=== PATIENT | male | born 1955 | race Caucasian/White ===

== ENCOUNTER 2018-02-26 22:31 | Emergency (ER) | payer BC ==
--- NOTE | 2018-02-26 23:38 | ER ---
Nurse's Notes [facility] Name: Lam Schroeder Age: 62 yrs Sex: Male : 1955 Arrival Date: 02/26/2018 Time: 22:35 Bed 6 Private MD: Robert Luo Diagnosis: Essential (primary) hypertension Presentation: 02/26 22:52 Presenting complaint: Patient states: Blood pressure 206/128 at home, states BP has lp1 been increasing all week; Denies any pain, discomfort, shortness of breath; Appt with Dr. 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 Transition of care: patient was not received from another setting of care. Onset of symptoms was February 26, 2018. Risk Assessment: Do you want to hurt yourself or someone else? Patient reports no desire to harm self or others. Initial Sepsis Screen: Does the patient meet any 2 criteria? No. Patient's initial sepsis screen is negative. Does the patient have a suspected source of infection? No. Patient's initial sepsis screen is negative. Care prior to arrival: None. 22:52 Method Of Arrival: Ambulatory lp1 22:52 Acuity: ANI 3 lp1 Historical: - Allergies: 22:54 Ephedrine Analogues; lp1 - Home Meds: 22:54 metoprolol succinate 100 mg oral Tb24 1 tab once daily [Active]; lp1 - PMHx: 22:54 Hypertension; lp1 - PSHx: 22:54 None; lp1 - Immunization history:: Adult Immunizations up to date. - Social history:: Smoking status: Patient uses tobacco products, smokes one pack cigarettes per day. - Ebola Screening: : No symptoms or risks identified at this time. Screenin:49 Abuse screen: Denies threats or abuse. Denies injuries from another. Nutritional tl1 screening: No deficits noted. Tuberculosis screening: No symptoms or risk factors identified. Fall Risk None identified. Assessment: 23:48 General: Appears in no apparent distress. Behavior is calm, cooperative, appropriate tl1 for age. Pain: Denies pain. Neuro: Level of Consciousness is awake, alert, obeys commands, Oriented to person, place, time, situation. Cardiovascular: Reports High blood pressure for approx 1 week Denies chest pain. Respiratory: Airway is patent Trachea midline Respiratory effort is even, unlabored, Breath sounds are clear bilaterally. GI: No signs and/or symptoms were reported involving the gastrointestinal system. : No signs and/or symptoms were reported regarding the genitourinary system. EENT: No signs and/or symptoms were reported regarding the EENT system. Derm: No signs and/or symptoms reported regarding the dermatologic system. Vital Signs: 22:50 BP 206 / 123; Pulse 79; Resp 20; Temp 98.7(O); Pulse Ox 98% on R/A; Weight 88.45 kg; lp1 Height 5 ft. 6 in. (167.64 cm); Pain 0/10; 22:56 BP 172 / 106; Pulse 79; Resp 20; Pulse Ox 97% on R/A; lp1 23:51 BP 156 / 88; Pulse 75; Resp 16; Temp 98.7; Pulse Ox 99% on R/A; Pain 0/10; tl1 22:50 Body Mass Index 31.47 (88.45 kg, 167.64 cm) lp1 ED Course: 22:35 Patient arrived in ED. es 22:35 Robert Luo MD is Private Physician. es 22:40 Chema Yanez MD is Attending Physician. gs 22:53 Triage completed. lp1 22:56 Arm band placed on left wrist. lp1 22:56 Patient has correct armband on for positive identification. Call light in reach. Side tl1 rails up X 1. Adult w/ patient. 23:50 No provider procedures requiring assistance completed. Patient did not have IV access tl1 during this emergency room visit. 23:51 Kirsten Tabares, KRISTA is Primary Nurse. tl1 Administered Medications: No medications were administered Outcome: 23:37 Discharge ordered by . gs 23:51 Discharged to home ambulatory, with family. tl1 23:51 Condition: good 23:51 Discharge instructions given to patient, family, Instructed on discharge instructions, follow up and referral plans. Demonstrated understanding of instructions, follow-up care. 23:55 Patient left the ED. tl1 Signatures: Katya Barr Laura, RN RN lp1 Kirsten Tabares, KRISTA VELASCO tl1 Chema Yanez MD MD
--- NOTE | 2018-02-26 23:38 | EDPHYS ---
Physician Documentation [facility] Name: Lam Schroeder Age: 62 yrs Sex: Male : 1955 Arrival Date: 02/26/2018 Time: 22:35 Bed 6 Private MD: Robert Luo ED Physician Chema Yanez HPI: 02/26 23:55 This 62 yrs old Male presents to ER via Ambulatory with complaints of High gs Blood Pressure. 23:55 Onset: The symptoms/episode began/occurred 1 week(s) ago. Modifying factors: The gs symptoms are aggravated by activity. Associated signs and symptoms: Pertinent negatives: chest pain, dyspnea, headache, visual changes. Severity of symptoms: At its worst the blood pressure was severe, in the emergency department the blood pressure is improved, moderately. The patient has experienced similar episodes in the past, a few times. The patient has been recently seen by a physician: Dr. cortez. Historical: - Allergies: 22:54 Ephedrine Analogues; lp1 - Home Meds: 22:54 metoprolol succinate 100 mg oral Tb24 1 tab once daily [Active]; lp1 - PMHx: 22:54 Hypertension; lp1 - PSHx: 22:54 None; lp1 - Immunization history:: Adult Immunizations up to date. - Social history:: Smoking status: Patient uses tobacco products, smokes one pack cigarettes per day. - Ebola Screening: : No symptoms or risks identified at this time. ROS: 23:55 All other systems are negative. gs Exam: 23:55 Head/Face: Normocephalic, atraumatic. Eyes: Pupils equal round and reactive to light, gs extra-ocular motions intact. Lids and lashes normal. Conjunctiva and sclera are non-icteric and not injected. Cornea within normal limits. Periorbital areas with no swelling, redness, or edema. ENT: Nares patent. No nasal discharge, no septal abnormalities noted. Tympanic membranes are normal and external auditory canals are clear. Oropharynx with no redness, swelling, or masses, exudates, or evidence of obstruction, uvula midline. Mucous membranes moist. Neck: Trachea midline, no thyromegaly or masses palpated, and no cervical lymphadenopathy. Supple, full range of motion without nuchal rigidity, or vertebral point tenderness. No Meningismus. Chest/axilla: Normal chest wall appearance and motion. Nontender with no deformity. No lesions are appreciated. Cardiovascular: Regular rate and rhythm with a normal S1 and S2. No gallops, murmurs, or rubs. Normal PMI, no JVD. No pulse deficits. Respiratory: Lungs have equal breath sounds bilaterally, clear to auscultation and percussion. No rales, rhonchi or wheezes noted. No increased work of breathing, no retractions or nasal flaring. Abdomen/GI: Soft, non-tender, with normal bowel sounds. No distension or tympany. No guarding or rebound. No evidence of tenderness throughout. Back: No spinal tenderness. No costovertebral tenderness. Full range of motion. Skin: Warm, dry with normal turgor. Normal color with no rashes, no lesions, and no evidence of cellulitis. MS/ Extremity: Pulses equal, no cyanosis. Neurovascular intact. Full, normal range of motion. Neuro: Awake and alert, GCS 15, oriented to person, place, time, and situation. Cranial nerves II-XII grossly intact. Motor strength 5/5 in all extremities. Sensory grossly intact. Cerebellar exam normal. Normal gait. 23:55 Constitutional: The patient appears alert, awake. Vital Signs: 22:50 BP 206 / 123; Pulse 79; Resp 20; Temp 98.7(O); Pulse Ox 98% on R/A; Weight 88.45 kg; lp1 Height 5 ft. 6 in. (167.64 cm); Pain 0/10; 22:56 BP 172 / 106; Pulse 79; Resp 20; Pulse Ox 97% on R/A; lp1 23:51 BP 156 / 88; Pulse 75; Resp 16; Temp 98.7; Pulse Ox 99% on R/A; Pain 0/10; tl1 22:50 Body Mass Index 31.47 (88.45 kg, 167.64 cm) lp1 MDM: 23:07 Patient medically screened. 23:55 Differential diagnosis: hypertensive crisis, Malignant HTN. Data reviewed: vital signs, gs nurses notes. Counseling: I had a detailed discussion with the patient and/or guardian regarding: the historical points, exam findings, and any diagnostic results supporting the discharge/admit diagnosis, the need for outpatient follow up. Response to treatment: the patient's symptoms have markedly improved after treatment, and as a result, I will discharge patient. 02/26 23:50 Order name: EKG; Complete Time: 23:51 tl1 02/26 23:50 Order name: EKG - Nurse/Tech; Complete Time: 23:50 tl1 Administered Medications: No medications were administered Disposition: 02/26/18 23:37 Discharged to Home. Impression: Essential (primary) hypertension. - Condition is Stable. - Discharge Instructions: Hypertension, Managing Your Hypertension. - Work release form, Medication Reconciliation Form, Thank You Letter, Antibiotic Education, Prescription Opioid Use form. - Follow up: Private Physician; When: 2 - 3 days; Reason: Re-evaluation by your physician. Signatures: Estrella Nino RN RN lp1 Kirsten Tabares RN RN tl1 Chema Yanez MD MD gs Corrections: (The following items were deleted from the chart) 23:55 23:37 02/26/2018 23:37 Discharged to Home. Impression: Essential (primary) tl1 hypertension. Condition is Stable. Forms are Medication Reconciliation Form, Thank You Letter, Antibiotic Education, Prescription Opioid Use. Follow up: Private Physician; When: 2 - 3 days; Reason: Re-evaluation by your physician. gs
[2018-02-27 04:29] VITALS: TEMP 98.7
[2018-02-27 04:32] VITALS: BP 156/88; O2SAT 99
--- NOTE | 2018-02-27 12:11 | EKG ---
Test Date: 2018-02-26 Test Time: 22:58:14 Adjunct Instructor: PHYLICIA MEASUREMENT RESULTS: Intervals: Rate: 76 [place]: 146 QRSD: 74 QT: 370 QTc: 416 [place]: P: 51 [place]: 146 QRS: 22 T: 28 INTERPRETIVE STATEMENTS: Normal sinus rhythm Normal ECG Compared to ECG 01/29/2016 06:38:01 Sinus bradycardia no longer present Electronically Signed On 02-27-18 12:09:09 DIRECTOR OF STRATEGIC ALLIANCES by Levi Cervantes
== END 2018-02-26 23:55 | disposition home or self-care (01) ==
LOC: ER 22:31
DX: I10 Essential (primary) hypertension (principal); F17.210 Nicotine dependence, cigarettes, uncomplicated; Z79.899 Other long term (current) drug therapy
CPT/HCPCS: 93005; 99281

== ENCOUNTER 2022-04-14 15:30 | Inpatient (IN) | payer BC, OTHER ==
--- NOTE | 2022-04-14 16:11 | RAD REPORT ---
EXAM DESCRIPTION: CT - Ct Stroke Brain Wo Cont - 04/14/2022 3:58 pm CLINICAL HISTORY: Neuro deficit, acute, stroke suspected COMPARISON: Head Brain Wo Cont dated 01/28/2016 TECHNIQUE: All CT scans are performed using dose optimization technique as appropriate and may inclu de automated exposure control or mA/KV adjustment according to patient size. FINDINGS: No intracranial hemorrhage, hydrocephalus or extra-axial fluid collection.No areas of brai n edema or evidence of midline shift. Chronic small vessel ischemic changes The paranasal sinuses and mastoids are clear. The calvarium is intact. IMPRESSION: No acute intracranial abnormality. Discussed with Dr. Eubanks by Dr. Velazquez at [id number]
[2022-04-14] MEDS ORDERED: NA CHLORIDE 0.9% 500 ML ONE (16:12)
[2022-04-14] MEDS ORDERED: LABETALOL 20 MG/4ML SYRINGE IV ONE ×4 (16:12→17:00)
[2022-04-14] MEDS ORDERED: LABETALOL HCL 100 MG TAB ONE (16:12)
[2022-04-14] MEDS ORDERED: FOLIC ACID 5 MG/ML VIAL ONE (16:13)
[2022-04-14 16:23] LABS: Absolute Lymphocytes (CBC) 2.1 K/uL (0.7-4.9); Hematocrit 43.8 % (39.6-49.0); MCV 85.6 fL (80-100); MPV 7.8 fL (7.6-11.3); RBC Red Blood Cell Count 5.12 M/uL (4.33-5.43)
--- NOTE | 2022-04-14 16:23 | RAD REPORT ---
EXAM DESCRIPTION: RAD - Chest Single View - 04/14/2022 4:09 pm CLINICAL HISTORY: COUGH COMPARISON: Chest Single View dated 01/28/2016; CHEST SINGLE VIEW dated 12/25/2012; CHEST PA AND LAT 2 VIEW dated 12/19/2012 FINDINGS: Lines: None. Lungs: No evidence of edema or pneumonia. Pleural: No significant pleural effusions or pneumothorax. Cardiac: The heart size is within normal limits. Mediastinum: Within normal limits. Bones: No acute fractures. Other: None IMPRESSION: No acute cardiopulmonary disease.
[2022-04-14 16:25] LABS: Protime INR 1.01
[2022-04-14] MEDS ORDERED: ACETAMINOPHEN 500 MG TAB ONE (16:28)
[2022-04-14] MEDS ORDERED: FENTANYL CITR 100 MCG/2 ML ONE ×2 (16:28→19:17)
[2022-04-14] MEDS ORDERED: ONDANSETRON 4 MG/2 ML VIAL ONE (16:28)
[2022-04-14 16:49] LABS: Albumin 3.8 g/dL (3.4-5.0); Bilirubin Direct 0.2 mg/dL (0-0.2); Bilirubin Total 0.7 mg/dL (0.2-1.0); Magnesium 2.1 mg/dL (1.6-2.4); Protein, Total 8.5 g/dL (6.4-8.2); Troponin High Sensitivity 26.4 pg/mL (<58.9)
[2022-04-14] MEDS ORDERED: FAMOTIDINE 20 MG/2 ML VIAL IV ONE ×2 (16:50→17:00)
[2022-04-14] MEDS ORDERED: ASPIRIN 81 MG CHEWABLE TABLET ONE (17:00)
--- NOTE | 2022-04-14 17:00 | EDPHYS ---
Physician Documentation [facility] Name: Lam Schroeder Age: 67 yrs Sex: Male : 1955 Arrival Date: 04/14/2022 Time: 15:34 Bed 4 Private MD: ED Physician Andrés Eubanks HPI: 04/14 16:39 This 67 yrs old Male presents to ER via Ambulatory with complaints of kristina Headache. 16:39 The patient complains of pain to the top of head, forehead, left frontal area, left kristina side of the back of head, left occipital area, left base of the skull, right frontal area, right side of the back of head, right occipital area and right base of the skull. The patient describes the headache as aching. Onset: The symptoms/episode began/occurred at 14:30. The patient presents with. Onset: The symptoms/episode began/occurred at 14:30. Possible causes: CVA or TIA, low blood sugar. Severity of symptoms: At its worst the pain was mild, moderate, in the emergency department the pain is unchanged. Associated signs and symptoms: Pertinent positives:. Historical: - Allergies: 15:40 Ephedrine Analogues; aa5 - PMHx: 15:40 Hypertension; aa5 - PSHx: 15:40 None; aa5 - Immunization history:: Adult Immunizations unknown. - Social history:: Smoking status: Patient reports the use of cigarette tobacco products, smokes one pack cigarettes per day. - Family history:: not pertinent. ROS: 16:41 Constitutional: Negative for fever, chills, and weight loss, Eyes: Negative for injury, kristina pain, redness, and discharge, ENT: Negative for injury, pain, and discharge, Neck: Negative for injury, pain, and swelling, Cardiovascular: Negative for chest pain, palpitations, and edema, Respiratory: Negative for shortness of breath, cough, wheezing, and pleuritic chest pain, Abdomen/GI: Negative for abdominal pain, nausea, vomiting, diarrhea, and constipation, Back: Negative for injury and pain, : Negative for injury, bleeding, discharge, and swelling, MS/Extremity: Negative for injury and deformity, Skin: Negative for injury, rash, and discoloration, Psych: Negative for depression, anxiety, suicide ideation, homicidal ideation, and hallucinations, Allergy/Immunology: Negative for hives, rash, and allergies, Endocrine: Negative for neck swelling, polydipsia, polyuria, polyphagia, and marked weight changes, Hematologic/Lymphatic: Negative for swollen nodes, abnormal bleeding, and unusual bruising. 16:41 Neuro: Positive for speech changes. Exam: 16:41 Radiologist reports: NEGATIVE kristina 16:41 Constitutional: This is a well developed, well nourished patient who is awake, alert, and in no acute distress. Head/Face: Normocephalic, atraumatic. Eyes: Pupils equal round and reactive to light, extra-ocular motions intact. Lids and lashes normal. Conjunctiva and sclera are non-icteric and not injected. Cornea within normal limits. Periorbital areas with no swelling, redness, or edema. ENT: Nares patent. No nasal discharge, no septal abnormalities noted. Tympanic membranes are normal and external auditory canals are clear. Oropharynx with no redness, swelling, or masses, exudates, or evidence of obstruction, uvula midline. Mucous membranes moist. Neck: Trachea midline, no thyromegaly or masses palpated, and no cervical lymphadenopathy. Supple, full range of motion without nuchal rigidity, or vertebral point tenderness. No Meningismus. Chest/axilla: Normal chest wall appearance and motion. Nontender with no deformity. No lesions are appreciated. Cardiovascular: Regular rate and rhythm with a normal S1 and S2. No gallops, murmurs, or rubs. Normal PMI, no JVD. No pulse deficits. Respiratory: Lungs have equal breath sounds bilaterally, clear to auscultation and percussion. No rales, rhonchi or wheezes noted. No increased work of breathing, no retractions or nasal flaring. Abdomen/GI: Soft, non-tender, with normal bowel sounds. No distension or tympany. No guarding or rebound. No evidence of tenderness throughout. Back: No spinal tenderness. No costovertebral tenderness. Full range of motion. Skin: Warm, dry with normal turgor. Normal color with no rashes, no lesions, and no evidence of cellulitis. MS/ Extremity: Pulses equal, no cyanosis. Neurovascular intact. Full, normal range of motion. Neuro: Awake and alert, GCS 15, oriented to person, place, time, and situation. Cranial nerves II-XII grossly intact. Motor strength 5/5 in all extremities. Sensory grossly intact. Cerebellar exam normal. Normal gait. Psych: Awake, alert, with orientation to person, place and time. Behavior, mood, and affect are within normal limits. 16:41 ECG was reviewed by the Attending Physician. Vital Signs: 15:40 BP 252 / 136; Pulse 82; Resp 18 S; Temp 98.2(TE); Pulse Ox 97% on R/A; Weight 68.04 kg aa5 (R); Height 5 ft. 6 in. (167.64 cm) (R); Pain 10/10; 16:14 BP 218 / 132; Pulse 84; Resp 21; Pulse Ox 99% on R/A; vg1 16:21 BP 209 / 133; Pulse 92; Resp 19; Pulse Ox 100% on R/A; vg1 16:36 BP 202 / 131; Pulse 96; Resp 22; Pulse Ox 100% on R/A; vg1 16:52 BP 210 / 132; Pulse 94; Resp 18; Pulse Ox 96% on R/A; vg1 17:00 BP 194 / 126; Pulse 94; Resp 16; Pulse Ox 97% on R/A; vg1 17:06 BP 182 / 123; Pulse 97; Resp 19; Pulse Ox 96% on R/A; vg1 17:08 BP 166 / 118; Pulse 94; Resp 19; Pulse Ox 97% on R/A; vg1 18:07 BP 153 / 117; Pulse 89; Pulse Ox 99% ; ap3 18:33 BP 150 / 116; Pulse 86; Pulse Ox 97% on R/A; ap3 19:18 BP 135 / 106; Pulse 80; Resp 18; Pulse Ox 98% on R/A; tw5 19:42 BP 133 / 96; Pulse 80; Resp 18; Pulse Ox 99% on R/A; tw5 15:40 Body Mass Index 24.21 (68.04 kg, 167.64 cm) aa5 NIH Stroke Scale Scores: 17:06 NIHSS Score: 0 kristina Bogata Coma Score: 16:48 Eye Response: spontaneous(4). Verbal Response: oriented(5). Motor Response: obeys [facility] commands(6). Total: 15. MDM: 15:49 Patient medically screened. [facility] 16:48 Data reviewed: vital signs, nurses notes, lab test result(s), EKG, radiologic studies, kristina CT scan, MRI, plain films. Consideration of Admission/Observation Patient was admitted/placed on observation. Escalation of care including admission/observation considered. Management of patient was discussed with the following: Lock Plater: DR MAYA, NO TPA, ADMIT CONT STROKE WORK UP. I considered the following discharge prescriptions or medication management in the emergency department Medications were administered in the Emergency Department. See MAR. Discussion of test interpretation with radiology: I had a discussion with radiology regarding a test interpretation. CT STROKE NEG, DR GEORGE. Historians other than the Patient: Family Member: SISTER. Care significantly affected by the following chronic conditions: Hypertension, TOBACCO ABUSE. 04/14 15:53 Order name: Basic Metabolic Panel; Complete Time: 17:49 [facility] 04/14 15:53 Order name: CBC with Diff; Complete Time: 17:49 [facility] 04/14 15:53 Order name: LFT's; Complete Time: 17:49 [facility] 04/14 15:53 Order name: Magnesium; Complete Time: 17:49 [facility] 04/14 15:53 Order name: NT PRO-BNP; Complete Time: 17:49 [facility] 04/14 15:53 Order name: PT-INR; Complete Time: 17:49 [facility] 04/14 15:53 Order name: Troponin HS; Complete Time: 17:49 [facility] 04/14 15:53 Order name: XRAY Chest (1 view); Complete Time: 17:49 [facility] 04/14 15:53 Order name: CT Stroke Brain w/o Contrast; Complete Time: 17:49 [facility] 04/14 16:32 Order name: SARS RAPID; Complete Time: 17:49 [facility] 04/14 16:57 Order name: CT Stone Protocol; Complete Time: 17:49 [facility] 04/14 17:31 Order name: Brain Wo Cont; Complete Time: 19:14 EDMS 04/14 15:53 Order name: EKG; Complete Time: 15:54 [facility] 04/14 15:53 Order name: Cardiac monitoring; Complete Time: 16:04 [facility] 04/14 15:53 Order name: EKG - Nurse/Tech; Complete Time: 16:04 [facility] 04/14 15:53 Order name: IV Saline Lock; Complete Time: 16:04 [facility] 04/14 15:53 Order name: Labs collected and sent; Complete Time: 16:04 [facility] 04/14 15:53 Order name: O2 Per Protocol; Complete Time: 16:04 [facility] 04/14 15:53 Order name: O2 Sat Monitoring; Complete Time: 16:04 [facility] EC:41 Rate is 90 beats/min. Rhythm is regular. QRS [place] is Normal. IN interval is normal. QRS kristina interval is normal. QT interval is normal. No Q waves. T waves are Normal. No ST changes noted. Clinical impression: NSR w/ Non-specific ST/T Changes and No evidence of ischemia. Interpreted by me. Reviewed by me. Administered Medications: 16:14 Drug: Labetalol 100 mg Route: PO; vg1 18:15 Follow up: Response: No adverse reaction; Blood pressure is lowered ap3 16:16 Drug: NS 0.9% 500 ml Route: IV; Rate: bolus; Site: right antecubital; vg1 18:15 Follow up: Response: No adverse reaction; IV Status: Completed infusion; IV Intake: ap3 500ml 16:16 Drug: foLIC Acid 1 mg Route: IVPB; Site: right antecubital; vg1 18:14 Follow up: Response: No adverse reaction; IV Status: Completed infusion ap3 16:18 Drug: Labetalol 10 mg Route: IV; Rate: per protocol; Infused Over: 2 mins; Site: right vg1 antecubital; 18:14 Follow up: Response: No adverse reaction; Blood pressure is lowered; IV Status: ap3 Completed infusion 16:22 Drug: Labetalol 20 mg {Note: 10 mg administered at 1622 10 mg administered at 1627.} vg1 Route: IV; Rate: per protocol; Infused Over: 2 mins; Site: right antecubital; 18:14 Follow up: Response: No adverse reaction; Blood pressure is lowered; IV Status: ap3 Completed infusion 16:32 Drug: Zofran (Ondansetron) 4 mg Route: IVP; Site: right antecubital; vg1 18:14 Follow up: Response: No adverse reaction; Nausea is decreased ap3 16:37 Drug: Tylenol 1000 mg Route: PO; vg1 18:14 Follow up: Response: No adverse reaction; Pain is decreased ap3 16:49 Drug: fentaNYL (PF) 25 mcg Route: IVP; Site: right antecubital; vg1 17:00 Follow up: Response: No adverse reaction; Pain is decreased vg1 16:51 Drug: Pepcid (famotidine) 20 mg Route: IVP; Site: right antecubital; vg1 18:13 Follow up: Response: No adverse reaction ap3 16:55 Drug: Labetalol 40 mg Route: IV; Rate: per protocol; Infused Over: 2 mins; Site: right vg1 antecubital; 18:13 Follow up: Response: No adverse reaction; Blood pressure is lowered ap3 18:13 Follow up: IV Status: Completed infusion ap3 17:11 Drug: Aspirin Chewable Tablet 324 mg Route: PO; ap3 18:15 Follow up: Response: No adverse reaction ap3 18:13 Drug: Lipitor (atorvastatin) 20 mg Route: PO; ap3 18:33 Follow up: Response: No adverse reaction ap3 18:13 Drug: Nicoderm CQ Patch 21 mg/24 hr 1 patches Route: Transdermal; Site: affected area; ap3 18:13 Drug: Losartan 100 mg Route: PO; ap3 18:33 Follow up: Response: No adverse reaction ap3 19:58 Not Given (Patient Refused): fentaNYL (PF) 25 mcg IVP once mb9 Disposition Summary: 04/14/22 17:00 Hospitalization Ordered Hospitalization Status: Inpatient Admission kristina Location: Telemetry/MedSurg (Inpatient) kristina Condition: Fair kristina Problem: new kristina Symptoms: have improved kristina Bed/Room Type: Standard kristina Provider: Robyn Cross(04/14/22 17:01) kristina Room Assignment: [facility](04/14/22 20:02) mw Diagnosis - Aphasia - RESOLVED kristina - Hypertensive heart and chronic kidney disease with heart failure and stage 1 kristina through stage 4 chronic kidney disease, or unspecified chronic kidney disease - Tobacco abuse counseling kristina - Tobacco use kristina - Headache kristina - Unspecified kidney failure kristina Forms: - Medication Reconciliation Form kristina - SBAR form kristina Critical care time excluding procedures: 17:24 Critical care time: Bedside Care: 25 minutes, Consultation: 10 minutes, Family kristina Intervention: 10 minutes. Total time: 45 minutes NIH Stroke Scale - NIH Stroke Score Date: 04/14/2022 Time: 17:06 Total Score = 0 1a. Level of Consciousness (LOC) - 0(Alert) 1b. Level of Consciousness (LOC) (Month \T\ Age) - 0(Both) 1c. LOC Commands (Open \T\ Closes Eyes/Aerial Sprayer) - 0(Both) 2. Best Gaze (Lateral Gaze Paresis) - 0(Normal) 3. Visual Field Loss - 0(No visual loss) 4. Facial Palsy - 0(Normal) 5a. Left Arm: Motor (10-second hold) - 0(No drift) 5b. Right Arm: Motor (10-second hold) - 0(No drift) 6a. Left Leg: Motor (5-second hold - always test supine) - 0(No drift) 6b. Right Leg: Motor (5-second hold - always test supine) - 0(No drift) 7. Limb Ataxia (finger/nose \T\ heel/yusuf - test with eyes open) - 0(Absent) 8. Sensory Loss (pinprick arms/legs/face) - 0(Normal) 9. Best Language: Aphasia (description/naming/reading) - 0(No aphasia) 10. Dysarthria (speech clarity - read or repeat words) - 0(Normal) 11. Extinction and Inattention (visual/tactile/auditory/spatial/personal) - 0(No abnormality) Initials: kristina Signatures: Dispatcher [employer] EDMS Caty Farrell RN Andrés Dowell MD MD cha Calderon, Audri, RN RN aa5 Neida Solorio RN RN ap3 Susan Baldwin, RN RN vg1 Manasa Henry PA-C PAGilma no4 Alicia Bruno RN mb9 Corrections: (The following items were deleted from the chart) 17:01 15:54 Head Angio+CT.RAD.BRZ ordered. EDMS EDMS 17:01 15:54 Neck Angio+CT.RAD.BRZ ordered. EDMS EDMS 17:01 17:00 Baljeet Heath cha, cha 17:31 16:32 MR STROKE PROTOCOL+MRI.RAD.BRZ ordered. EDMS EDMS 20:02 17:00 kristina byrne
--- NOTE | 2022-04-14 17:00 | ER ---
[facility] Name: Lam Schroeder Age: 67 yrs Sex: Male : 1955 Arrival Date: 04/14/2022 Time: 15:34 Bed 4 Private MD: Diagnosis: Aphasia-RESOLVED;Hypertensive heart and chronic kidney disease with heart failure and stage 1 through stage 4 chronic kidney disease, or unspecified chronic kidney disease;Tobacco abuse counseling;Tobacco use;Headache;Unspecified kidney failure Presentation: 04/14 15:40 Chief complaint: Patient states: "I was at work and I couldn't get my words to come out aa5 right and my co-worker said that I wasn't making any sense". Pt is A\\T\\O x 4, reports RODRIGES to whole head. Symptoms began at 1330 today. 15:40 Coronavirus screen: At this time, the client does not indicate any symptoms associated aa5 with coronavirus-19. Ebola Screen: Patient denies travel to an Ebola-affected area in the 21 days before illness onset. Initial Sepsis Screen: Does the patient meet any 2 criteria? No. Patient's initial sepsis screen is negative. Does the patient have a suspected source of infection? No. Patient's initial sepsis screen is negative. Risk Assessment: Do you want to hurt yourself or someone else? Patient reports no desire to harm self or others. Onset of symptoms was April 14, 2022. 15:40 Acuity: ANI 2 aa5 15:40 Method Of Arrival: Ambulatory aa5 Triage Assessment: 16:40 Headache History: The patient has had previous headaches and this one is similar to ap3 previous episodes. General: Appears uncomfortable, Behavior is calm, cooperative. Pain: Complains of pain in head Pain currently is 10 out of 10 on a pain scale. Pain began gradually, Also complains of no other associated symptoms. Neuro: Level of Consciousness is awake, alert, obeys commands, Oriented to person, place, time, Speech is normal. Cardiovascular: Patient's skin is warm and dry. Cardiovascular:. Respiratory: Airway is patent Respiratory effort is even, unlabored. Historical: - Allergies: 15:40 Ephedrine Analogues; aa5 - PMHx: 15:40 Hypertension; aa5 - PSHx: 15:40 None; aa5 - Immunization history:: Adult Immunizations unknown. - Social history:: Smoking status: Patient reports the use of cigarette tobacco products, smokes one pack cigarettes per day. - Family history:: not pertinent. Screenin:06 Abuse screen: Denies threats or abuse. Nutritional screening: No deficits noted. ap3 Tuberculosis screening: No symptoms or risk factors identified. 17:25 [facility] ED Fall Risk Assessment (Adult) History of falling in the last 3 months, ap3 including since admission No falls in past 3 months (0 pts) Confusion or Disorientation No (0 pts) Intoxicated or Sedated No (0 pts) Impaired Gait No (0 pts) Mobility Assist Device Used No (0 pt) Altered Elimination No (0 pt). Assessment: 15:41 Reassessment: PT to CT via wheelchair, accompanied by me. . aa5 15:45 Reassessment: Pt back from CT scan, accompanied by me. . aa5 16:11 Reassessment: SWALLOW SCREEN COMPLETED-PASSED. vg1 17:12 Reassessment: pt TRANSPORTED to CT. vg1 18:15 Reassessment: Patient and/or family updated on plan of care and expected duration. Pain ap3 level reassessed. Patient is alert, oriented x 3, equal unlabored respirations, skin warm/dry/pink. Patient states symptoms have improved. 19:18 General: Appears in no apparent distress. Behavior is quiet, patient is sleeping at tw5 this time. 19:18 Respiratory: No deficits noted. tw5 19:42 General: Behavior is drowsy. tw5 19:43 General: Daughter at the bedside. Sirena the hospitalist also at the bedside speaking tw5 with the daughter regarding her fathers care.. Neuro: Level of Consciousness is awake, alert, obeys commands, Oriented to person, place, time, situation. Vital Signs: 15:40 BP 252 / 136; Pulse 82; Resp 18 S; Temp 98.2(TE); Pulse Ox 97% on R/A; Weight 68.04 kg aa5 (R); Height 5 ft. 6 in. (167.64 cm) (R); Pain 10/10; 16:14 BP 218 / 132; Pulse 84; Resp 21; Pulse Ox 99% on R/A; vg1 16:21 BP 209 / 133; Pulse 92; Resp 19; Pulse Ox 100% on R/A; vg1 16:36 BP 202 / 131; Pulse 96; Resp 22; Pulse Ox 100% on R/A; vg1 16:52 BP 210 / 132; Pulse 94; Resp 18; Pulse Ox 96% on R/A; vg1 17:00 BP 194 / 126; Pulse 94; Resp 16; Pulse Ox 97% on R/A; vg1 17:06 BP 182 / 123; Pulse 97; Resp 19; Pulse Ox 96% on R/A; vg1 17:08 BP 166 / 118; Pulse 94; Resp 19; Pulse Ox 97% on R/A; vg1 18:07 BP 153 / 117; Pulse 89; Pulse Ox 99% ; ap3 18:33 BP 150 / 116; Pulse 86; Pulse Ox 97% on R/A; ap3 19:18 BP 135 / 106; Pulse 80; Resp 18; Pulse Ox 98% on R/A; tw5 19:42 BP 133 / 96; Pulse 80; Resp 18; Pulse Ox 99% on R/A; tw5 15:40 Body Mass Index 24.21 (68.04 kg, 167.64 cm) aa5 Pinole Coma Score: 16:48 Eye Response: spontaneous(4). Verbal Response: oriented(5). Motor Response: obeys kristina commands(6). Total: 15. NIH Stroke Scale Scores: 17:06 NIHSS Score: 0 kristina ED Course: 15:34 Patient arrived in ED. am2 15:45 Arm band placed on Patient placed in an exam room, on a stretcher. aa5 15:48 Andrés Eubanks MD is Attending Physician. kristina 15:57 Triage completed. aa5 15:59 CT Stroke Brain w/o Contrast In Process Unspecified. EDMS 16:05 Neida Solorio, RN is Primary Nurse. ap3 16:05 Inserted saline lock: 20 gauge in right antecubital area, using aseptic technique. ap3 Blood collected. 16:05 Inserted saline lock: 20 gauge in left antecubital area, using aseptic technique. ap3 16:06 Patient has correct armband on for positive identification. Placed in gown. Bed in low ap3 position. Call light in reach. Side rails up X2. Adult w/ patient. dive superintendent on. Pulse ox on. NIBP on. 16:11 XRAY Chest (1 view) In Process Unspecified. EDMS 16:58 Baidoo, Baljeet is Hospitalizing Provider. kristina 17:01 Robyn Cross MD is Hospitalizing Provider. kristina 17:27 CT Stone Protocol In Process Unspecified. EDMS 18:21 Brain Wo Cont In Process Unspecified. EDMS 19:16 Primary Nurse role handed off by Neida Solorio RN tw5 19:16 Geni Jett is Primary Nurse. tw5 20:14 No provider procedures requiring assistance completed. Patient admitted, IV remains in tw5 place. Administered Medications: 16:14 Drug: Labetalol 100 mg Route: PO; vg1 18:15 Follow up: Response: No adverse reaction; Blood pressure is lowered ap3 16:16 Drug: NS 0.9% 500 ml Route: IV; Rate: bolus; Site: right antecubital; vg1 18:15 Follow up: Response: No adverse reaction; IV Status: Completed infusion; IV Intake: ap3 500ml 16:16 Drug: foLIC Acid 1 mg Route: IVPB; Site: right antecubital; vg1 18:14 Follow up: Response: No adverse reaction; IV Status: Completed infusion ap3 16:18 Drug: Labetalol 10 mg Route: IV; Rate: per protocol; Infused Over: 2 mins; Site: right vg1 antecubital; 18:14 Follow up: Response: No adverse reaction; Blood pressure is lowered; IV Status: ap3 Completed infusion 16:22 Drug: Labetalol 20 mg {Note: 10 mg administered at 1622 10 mg administered at 1627.} vg1 Route: IV; Rate: per protocol; Infused Over: 2 mins; Site: right antecubital; 18:14 Follow up: Response: No adverse reaction; Blood pressure is lowered; IV Status: ap3 Completed infusion 16:32 Drug: Zofran (Ondansetron) 4 mg Route: IVP; Site: right antecubital; vg1 18:14 Follow up: Response: No adverse reaction; Nausea is decreased ap3 16:37 Drug: Tylenol 1000 mg Route: PO; vg1 18:14 Follow up: Response: No adverse reaction; Pain is decreased ap3 16:49 Drug: fentaNYL (PF) 25 mcg Route: IVP; Site: right antecubital; vg1 17:00 Follow up: Response: No adverse reaction; Pain is decreased vg1 16:51 Drug: Pepcid (famotidine) 20 mg Route: IVP; Site: right antecubital; vg1 18:13 Follow up: Response: No adverse reaction ap3 16:55 Drug: Labetalol 40 mg Route: IV; Rate: per protocol; Infused Over: 2 mins; Site: right vg1 antecubital; 18:13 Follow up: Response: No adverse reaction; Blood pressure is lowered ap3 18:13 Follow up: IV Status: Completed infusion ap3 17:11 Drug: Aspirin Chewable Tablet 324 mg Route: PO; ap3 18:15 Follow up: Response: No adverse reaction ap3 18:13 Drug: Lipitor (atorvastatin) 20 mg Route: PO; ap3 18:33 Follow up: Response: No adverse reaction ap3 18:13 Drug: Nicoderm CQ Patch 21 mg/24 hr 1 patches Route: Transdermal; Site: affected area; ap3 18:13 Drug: Losartan 100 mg Route: PO; ap3 18:33 Follow up: Response: No adverse reaction ap3 19:58 Not Given (Patient Refused): fentaNYL (PF) 25 mcg IVP once mb9 Medication: 16:06 VIS not applicable for this client. ap3 Intake: 18:15 IV: 500ml; Total: 500ml. ap3 Outcome: 17:00 Decision to Hospitalize by Provider. kristina 20:14 Admitted to Med/surg Report called to Report called to 4th floor tw5 20:14 Condition: stable 20:14 Discharge instructions given to patient, family, Instructed on the need for admit, Demonstrated understanding of instructions. 20:56 Patient left the ED. kd3 NIH Stroke Scale - NIH Stroke Score Date: 04/14/2022 Time: 17:06 Total Score = 0 1a. Level of Consciousness (LOC) - 0(Alert) 1b. Level of Consciousness (LOC) (Month \\T\\ Age) - 0(Both) 1c. LOC Commands (Open \\T\\ Closes Eyes/Skin Fitter) - 0(Both) 2. Best Gaze (Lateral Gaze Paresis) - 0(Normal) 3. Visual Field Loss - 0(No visual loss) 4. Facial Palsy - 0(Normal) 5a. Left Arm: Motor (10-second hold) - 0(No drift) 5b. Right Arm: Motor (10-second hold) - 0(No drift) 6a. Left Leg: Motor (5-second hold - always test supine) - 0(No drift) 6b. Right Leg: Motor (5-second hold - always test supine) - 0(No drift) 7. Limb Ataxia (finger/nose \\T\\ heel/yusuf - test with eyes open) - 0(Absent) 8. Sensory Loss (pinprick arms/legs/face) - 0(Normal) 9. Best Language: Aphasia (description/naming/reading) - 0(No aphasia) 10. Dysarthria (speech clarity - read or repeat words) - 0(Normal) 11. Extinction and Inattention (visual/tactile/auditory/spatial/personal) - 0(No abnormality) Initials: kristina Signatures: Dispatcher [employer] Andrés Brown MD MD cha Calderon, Audri, RN RN aa5 Neida Kelly am2 Neida Solorio RN RN ap3 Susan Baldwin RN RN preston1 Geni Jett tw5 Tania Clifford RN RN kd3 Alicia Bruno RN mb9
[2022-04-14] MEDS ORDERED: NICOTINE 21 MG/PAT TD ONE (17:07)
[2022-04-14] MEDS ORDERED: ATORVASTATIN 20 MG TAB ONE (17:07)
[2022-04-14] MEDS ORDERED: LOSARTAN POTASSIUM 50 MG TABLET ONE (17:07)
[2022-04-14 17:39] LABS: SARS-CoV-2 Antigen Rapid Res Negative (Negative)
--- NOTE | 2022-04-14 17:41 | RAD REPORT ---
[facility] 5:25 pm CLINICAL HISTORY: Flank pain, kidney stone suspected COMPARISON: No comparisons TECHNIQUE: CT of the abdomen and pelvis was performed. All CT scans are performed using dose optimization technique as appropriate and may include automated exposure control or mA/KV adjustment according to patient size. FINDINGS: Lower chest: No acute abnormality. Coronary artery calcifications. Aortic valve calcificat ions. Liver: No acute abnormality or suspicious lesions. Biliary: No biliary ductal dilatation. Stomach: No significant focal abnormality. Duodenum: No significant focal abnormality. Pancreas: No significant abnormality. Spleen: No significant abnormality. Adrenal: No suspicious lesions. Kidney/ureter: No hydronephrosis. No renal calculi. Atrophic left kidney. Retroperitoneum: No retroperitoneal adenopathy. Vascular: No aneurysm. Bowel: No significant focal abnormality. Diverticulosis without diverticulitis. Peritoneum: No ascites or free air. Bladder: Grossly unremarkable. Reproductive: No adnexal masses. Bones: No acute fracture. Other: n/a IMPRESSION: No acute intra-abdominal or pelvic finding.
--- NOTE | 2022-04-14 18:31 | RAD REPORT ---
EXAM DESCRIPTION: MRI - Brain Wo Cont - 04/14/2022 6:20 pm CLINICAL HISTORY: CVA COMPARISON: No comparisons TECHNIQUE: Sagittal T1-weighted images were obtained along with PD/heavily T2-weighted and T2-FLAIR images. Axial DWI and ADC mapping sequences were also obtained along with coronal heavily T2-weighted images were obtained. FINDINGS: No intracranial hemorrhage, mass or acute infarction. There is no edema or shift of midlin e structures. No extra-axial fluid collections. Signal voids are seen as a normal finding in the isidra r intracranial vessels. Small foci of high signal on the DWI in the right sauceda radiata and left pos terior temporal lobe do not have matching low signal on ADC. This is favored to represent T2 shine th rough as result of a remote infarct moderate chronic small vessel ischemic changes. . Mastoid air cells and paranasal sinuses are clear. IMPRESSION: No acute intracranial abnormality. Specifically, no evidence of acute infarct. Small rem ote lacunar infarcts and moderate chronic small vessel ischemic changes.
--- NOTE | 2022-04-14 19:22 | P.HP ---
Certification for Inpatient Patient admitted to: Observation With expected LOS: <2 Midnights Patient will require the following post-hospital care: None Practitioner: I am a practitioner with admitting privileges, knowledge of patient current condition, hospital course, and medical plan of care. Services: Services provided to patient in accordance with Admission requirements found in Title 42 Section 412.3 of the Code of Federal Regulations Patient History Date of Service: 04/14/22 Reason for admission: Hypertensive Emergency History of Present Illness: Patient is a 67 year old male with past medical history of hypertension and GERD who presented to the emergency department with expressive aphasia, headache, and vision changes. His blood pressure was noted to be 252/136 upon arrival to ED. Daughter reports he has been having headaches for the past week. 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 Head CT, abdominal CT, chest xray all negative for acute findings. Brain MRI showed "No acute intracranial abnormality. Specifically, no evidence of acute infarct. Small remote lacunar infarcts and moderate chronic small vessel ischemic changes." He was given several antihypertensives, PO and IV, in the emergency department that have significantly improved his blood pressure- currently 133/96. His labs are significant for WBC 11.2, BUN 33, Cr 1.92, BNP 3106. He reports that his symptoms have since resolved. ED provider wishes to admit patient for observation. Allergies No Known Allergies Allergy (Verified 01/28/16 17:25) Home medications list reviewed: Yes Home Medications: Indian-3/Dha/Epa/Fish Oil [Fish Oil 1,000 mg Softgel] 2 each PO BID 01/28/16 lisinopriL [Prinivil*] 20 mg PO DAILY 01/28/16 - Past Medical/Surgical History Diabetic: No -: HTN -: GERD Past Surgical History: Patient denies surgical history Psychosocial/ Personal History: Patient lives at home alone. He has a son and daughter. - Family History Father -: Cancer - Social History Smoking Status: Current every day smoker Alcohol use: No CD- Drugs: No Caffeine use: Yes Place of Residence: Home Review of Systems Neurological: Change in Speech, Other (Headache) Physical Examination - Vital Signs Temperature: 98.2 F Blood Pressure: 135/106 Pulse: 80 Respirations: 18 Pulse Ox (%): 98 - Physical Exam General: Alert, In no apparent distress HEENT: Atraumatic, PERRLA, EOMI, Sclerae nonicteric Neck: Supple, JVD not distended Respiratory: Clear to auscultation bilaterally, Normal air movement Cardiovascular: No edema, Regular rate/rhythm, Normal S1 S2 Gastrointestinal: Normal bowel sounds, No tenderness Musculoskeletal: No tenderness Integumentary: No rashes Neurological: Normal gait, Normal speech, Normal strength at 5/5 x4 extr, Normal affect - Studies Laboratory Data (last 24 hrs) 04/14/22 16:03: PT 11.1, INR 1.01 04/14/22 16:03: WBC 11.20 H, Hgb 14.6, Hct 43.8, Plt Count 233 04/14/22 16:03: Sodium 140, Potassium 4.0, BUN 33 H, Creatinine 1.92 H, Glucose 92, Magnesium 2.1, Total Bilirubin 0.7, AST 10 L, ALT 24, Alkaline Phosphatase 96 Assessment and Plan - Problems (Diagnosis) (1) Hypertensive emergency without congestive heart failure Current Visit: Yes Status: Acute (2) Hypertension Current Visit: Yes Status: Acute Qualifiers: Hypertension type: primary hypertension Qualified Code(s): I10 - Essential (primary) hypertension (3) MARBELLA (acute kidney injury) Current Visit: Yes Status: Acute (4) Tobacco abuse Current Visit: Yes Status: Chronic - Plan Patient is admitted for observation following hypertensive emergency. Monitor BP closely. IV labetolol PRN. Cardiology consult. Echo ordered. Will trend troponin and check lipid panel. Brain MRI negative for CVA. Gentle IV hydration for MARBELLA. Monitor and replete electrolytes per protocol. Reconcile and continue home medications. Lovenox for VTE prophylaxis. Full code. Discharge Plan: Home Plan to discharge in: 24 Hours - Advance Directives Does patient have a Living Will: No Does patient have a Durable POA for Healthcare: No - Code Status/Comfort Care Code Status Assessed: Yes Code Status: Full Code Physician Review: Patient Assessed, Agree with Above Assessment and Plan Critical Care: No Time Spent Managing Pts Care (In Minutes): 50
[2022-04-14] MEDS ORDERED: ACETAMINOPHEN 500 MG TAB PO PRN (20:31)
[2022-04-14] MEDS ORDERED: ONDANSETRON 4 MG/2 ML VIAL IV PRN (20:31)
[2022-04-14] MEDS: NA CHLORIDE 0.9% 1,000 ML IV SCH (21:54)
[2022-04-15 03:51] LABS: Absolute Lymphocytes (CBC) 2.9 K/uL (0.7-4.9); Lymphocytes % 33.2 % (15.3-44.8); MCV 86.1 fL (80-100); MPV 7.7 fL (7.6-11.3); RBC Red Blood Cell Count 4.41 M/uL (4.33-5.43)
[2022-04-15] MEDS: LABETALOL 20 MG/4ML SYRINGE IV PRN ×3 (04:07→21:09)
[2022-04-15 04:19] LABS: Magnesium 2.2 mg/dL (1.6-2.4); Potassium 3.9 mmol/L (3.5-5.1); Thyroid Stimulating Hormone 3.2 uIU/mL (0.358-3.740); Troponin High Sensitivity 23.6 pg/mL (<58.9)
[2022-04-15] MEDS: ENOXAPARIN 40 MG/0.4 ML SQ SCH (07:55)
[2022-04-15] MEDS ORDERED: POTASSIUM 25 MEQ EFFERV TAB PO ONE (09:00)
[2022-04-15] MEDS: AMLODIPINE 10 MG TAB PO SCH (10:38)
[2022-04-15] MEDS: METOPROLOL XL 100 MG TAB PO SCH (10:39)
[2022-04-15] MEDS: NA CHLORIDE 0.9% 1,000 ML IV SCH (10:42)
--- NOTE | 2022-04-15 10:49 | EKG ---
Test Date: 2022-04-14 Test Time: 15:57:46 Human Resource Assistant: JOSHUA MEASUREMENT RESULTS: Intervals: Rate: 90 PA: 206 QRSD: 74 QT: 364 QTc: 445 [place]: P: 51 PA: 206 QRS: 35 T: 66 INTERPRETIVE STATEMENTS: Normal sinus rhythm Nonspecific T wave abnormality Abnormal ECG Compared to ECG 02/26/2018 22:58:14 T-wave abnormality now present Electronically Signed On 04-15-22 10:46:36 EXTENSION PROFESSOR by Levi Cervantes
--- NOTE | 2022-04-15 19:33 | P.PN ---
Subjective Date of Service: 04/15/22 Chief Complaint: Hypertensive Emergency Patient is complaining of mild headache. His blood pressure has improved. Physical Examination - Vital Signs Temperature: 97.6 F Blood Pressure: 165/107 Pulse: 76 Respirations: 16 Pulse Ox (%): 96 Assessment And Plan - Current Problems (Diagnosis) (1) Malignant hypertension Current Visit: Yes Status: Acute (2) Tobacco abuse Current Visit: Yes Status: Chronic (3) Chronic kidney disease, stage III (moderate) Current Visit: Yes Status: Acute - Plan Physical Exam General: Alert, In no apparent distress Neck: Supple, JVD not distended Respiratory: Clear to auscultation bilaterally, Normal air movement Cardiovascular: No edema, Regular rate/rhythm, Normal S1 S2 Gastrointestinal: Normal bowel sounds, No tenderness Musculoskeletal: No tenderness Integumentary: No rashes Neurological: Normal gait, Normal speech, Normal strength at 5/5 x4 extr, Normal affect Plan: MRI of the brain is negative. No acute CVA. Aphasia and visual changes likely secondary to malignant hypertension. Blood pressure improved. Patient started on amlodipine His home dose metoprolol [id number] 100 mg daily. Resume losartan and hydrochlorothiazide and monitor renal function. Echocardiogram was done and the result is pending. Anticipating discharge tomorrow.
[2022-04-15] MEDS: DOCOSAHEXANOIC AC/EPA 1000 MG PO SCH (21:08)
[2022-04-16] MEDS: LABETALOL 20 MG/4ML SYRINGE IV PRN ×5 (01:56→20:25)
[2022-04-16 04:29] LABS: Albumin 3.1 g/dL (3.4-5.0); Phosphorus 3.2 mg/dL (2.5-4.9); Potassium 4.3 mmol/L (3.5-5.1)
[2022-04-16] MEDS: METOPROLOL XL 100 MG TAB PO SCH (05:56)
[2022-04-16] MEDS: ENOXAPARIN 40 MG/0.4 ML SQ SCH (08:04)
[2022-04-16] MEDS: AMLODIPINE 10 MG TAB PO SCH (08:05)
[2022-04-16] MEDS: LOSARTAN/HCTZ 50-12.5 PO SCH (08:06)
[2022-04-16] MEDS: DOCOSAHEXANOIC AC/EPA 1000 MG PO SCH ×2 (08:06→20:26)
[2022-04-16] MEDS ORDERED: PNEUMOCOCCAL VACCINE 0.5 ML IMVAC ONE (10:00)
--- NOTE | 2022-04-16 14:06 | P.PN ---
Subjective Date of Service: 04/16/22 Chief Complaint: Hypertensive Emergency Patient's blood pressure was severely elevated this morning but later improved. He denied any visual disturbance or headache today Physical Examination - Vital Signs Temperature: 98.1 F Blood Pressure: 146/94 Pulse: 83 Respirations: 18 Pulse Ox (%): 96 Assessment And Plan - Current Problems (Diagnosis) (1) Malignant hypertension Current Visit: Yes Status: Acute (2) Tobacco abuse Current Visit: Yes Status: Chronic (3) Chronic kidney disease, stage III (moderate) Current Visit: Yes Status: Acute - Plan Physical Exam General: Alert, In no apparent distress Neck: Supple, JVD not distended Respiratory: Clear to auscultation bilaterally, Normal air movement Cardiovascular: No edema, Regular rate/rhythm, Normal S1 S2 Gastrointestinal: Normal bowel sounds, No tenderness Musculoskeletal: No tenderness Integumentary: No rashes Neurological: Normal gait, Normal speech, Normal strength at 5/5 x4 extr, Normal affect Plan: MRI of the brain is negative. No acute CVA. Aphasia and visual changes likely secondary to malignant hypertension. Symptoms resolved Blood pressure improved. Continue amlodipine, Toprol-XL, losartan and hydrochlorothiazide. Considering doxazosin at bedtime if patient's blood pressure remains elevated. Echocardiogram was done and the result is pending. 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 Nephrology consult.
[2022-04-17] MEDS: LABETALOL 20 MG/4ML SYRINGE IV PRN ×5 (00:23→20:17)
[2022-04-17 04:01] LABS: Albumin 3.2 g/dL (3.4-5.0); Magnesium 2.1 mg/dL (1.6-2.4); Phosphorus 3.2 mg/dL (2.5-4.9); Potassium 4.2 mmol/L (3.5-5.1)
[2022-04-17] MEDS: METOPROLOL XL 100 MG TAB PO SCH (05:47)
[2022-04-17] MEDS: ENOXAPARIN 40 MG/0.4 ML SQ SCH (08:27)
[2022-04-17] MEDS: AMLODIPINE 10 MG TAB PO SCH (08:27)
[2022-04-17] MEDS: DOCOSAHEXANOIC AC/EPA 1000 MG PO SCH ×2 (08:28→20:15)
[2022-04-17] MEDS: LOSARTAN/HCTZ 50-12.5 PO SCH (08:29)
--- NOTE | 2022-04-17 14:03 | P.PN ---
Subjective Date of Service: 04/17/22 Chief Complaint: Hypertensive Emergency Patient's blood pressure remains significantly elevated. He has no new complaints. He denies headache today. Physical Examination - Vital Signs Temperature: 99.0 F Blood Pressure: 185/113 Pulse: 78 Respirations: 12 Pulse Ox (%): 94 - Studies Laboratory Data (last 24 hrs) 04/17/22 03:32: Sodium 137, Potassium 4.2, BUN 34 H, Creatinine 1.83 H, Glucose 101, Phosphorus 3.2, Magnesium 2.1 Assessment And Plan - Current Problems (Diagnosis) (1) Malignant hypertension Current Visit: Yes Status: Acute (2) Tobacco abuse Current Visit: Yes Status: Chronic (3) Chronic kidney disease, stage III (moderate) Current Visit: Yes Status: Acute - Plan Physical Exam General: Alert, In no apparent distress Neck: Supple, JVD not distended Respiratory: Clear to auscultation bilaterally, Normal air movement Cardiovascular: No edema, Regular rate/rhythm, Normal S1 S2 Gastrointestinal: Normal bowel sounds, No tenderness Musculoskeletal: No tenderness Integumentary: No rashes Neurological: Normal gait, Normal speech, Normal strength at 5/5 x4 extr, Normal affect Plan: MRI of the brain is negative. No acute CVA. Aphasia and visual changes likely secondary to malignant hypertension. Symptoms resolved Blood pressure slightly improved but still significantly elevated Seen by nephrology. Nephrology added nifedipine and hydralazine and discontinued amlodipine. He is also losartan and metoprolol. Renal Doppler to assess for renal artery stenosis. Screen for pheochromocytoma and hyperaldosteronism ordered. Echocardiogram done and the result is pending. 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 Renal function has been stable.
--- NOTE | 2022-04-17 14:06 | P.CNS ---
Date of Consult: 04/17/22 Reason for Consult: CKD , HTN Urgency Chief Complaint: Hypertensive Emergency History of Present Illness: Patient is a 67 year old male with past medical history of hypertension and GERD and tobacco use Pt presented to the emergency department with expressive aphasia, headache, and vision changes. His blood pressure was noted to be 252/136 upon arrival to ED. pt is known to have high BP , he takes losartan and metoprolol at home, but not monitoring BP , Head CT with no acute abnormalities, His labs are significant for WBC 11.2, BUN 33, Cr 1.92, BNP 3106. He reports that his symptoms have since resolved. pt denied nay NSAID, recreational drugs abuse, wile hospitalzied he is on HCTZ-Losartan, Amlodipine and labetalol prn with no improvement in BP ROS General : denies fever, chills, WT change weakness, insomnia HEENT: Denies dry, vision changes and headache Resp: denies SOB, cough or wheezes Cardiovascular: denied chest pain, palpitation , no SOB GI: denies abdominal pain, diarrhea or constipation : denies dysuria, urgency, foamy urine or blood tinged urine Musculoskeletal: denies muscle aches, joint pain Endo: denies polyuria and and polydipsia Extre: denies pain numbness and swelling Physical exam General: AAOx3, NAD, HEENT PERRLA, moist mucose membrane neck: supple, no elevated JVD CHEST; CTAB, no wheezes or rales HEART : RRR. Normal S1,2 no murmur or rub Abd: soft, Nt Ext: no edema Skin : No rash #HTN CKD III cr stable now ~1.8 cr 1.2 in [address] scan no hydronephrosis gradual BP control avoid NSAID and contrast #HTN Urgency not improving on Loartan-HCTZ and amlodipine will send for renal doppler , Renin/aldosterone, serum metanephrine and serum cortisol will sitch amlodipine to Nifedipine and Add hydralazine if no improvement in BP by tomorrow we can add aldactone after obtain labs low salt diet #TIA asymptomatic now now #Active smoker counseled Total time spent 65 minutes including documentation, reviewing labs , placing orders and discussing Allergies No Known Allergies Allergy (Verified 01/28/16 17:25) Home Medications: [place]-3/Dha/Epa/Fish Oil [Fish Oil 1,000 mg Softgel] 2 each PO BID 01/28/16 lisinopriL [Prinivil*] 20 mg PO DAILY 01/28/16 Losartan/Hydrochlorothiazide [Losartan-Hctz 100-25 mg Tab] 100 mg PO DAILY 04/15/22 Metoprolol/Hydrochlorothiazide [Metoprolol-Hctz 100-25 mg Tab] 100 mg PO DAILY 04/15/22 - Past Medical/Surgical History Diabetic: No -: HTN -: GERD Psychosocial/ Personal History: Patient lives at home alone. He has a son and daughter. - Family History Father Medical History: Cancer - Social History Smoking Status: Current every day smoker Alcohol use: No CD- Drugs: No Caffeine use: Yes Place of Residence: Home Physical Examination Temp Pulse Resp BP Pulse Ox 99.0 F 78 12 185/113 H 94 04/17/22 12:00 04/17/22 12:00 04/17/22 12:00 04/17/22 12:00 04/17/22 12:00 Laboratory Data (last 24 hrs) 04/17/22 03:32: Sodium 137, Potassium 4.2, BUN 34 H, Creatinine 1.83 H, Glucose 101, Phosphorus 3.2, Magnesium 2.1
[2022-04-17] MEDS: HYDRALAZINE HCL 25 MG TABLET PO SCH ×2 (14:11→20:16)
[2022-04-17 16:19] VITALS: O2SAT 97
--- NOTE | 2022-04-17 19:59 | CON ---
Date of Consultation: 04/15/[address] Heath with hypertensive crisis on 04/14/2022. I saw the patient on 04/15/2022. History Of Present Illness: Mr. Schroeder is 67. Has a history of hypertension. Came in with a blood p ressure 150/116, creatinine of 2.02, elevated BNP of 3140. He denied any nausea, vomiting, diaphores is. Has had some chest pressure. Denied PND, orthopnea, pedal edema, palpitations, or syncope. His troponin has been negative. His blood pressure is improved. Past Medical History: Includes hypertension. Allergies: NONE. Medications: At home are none. The patient is not compliant. Review of Systems: Negative. Social History: Negative. Family History: Negative. Physical Examination: Vital Signs: Blood pressure is 150/116. General: He was in no acute distress. HEENT: Negative. Neck: Supple with no bruit. Chest: Clear. Cardiac: Revealed a regular rhythm and rate with S4 gallops. Abdomen: Benign. Extremities: Revealed trace edema. Impression And Plan: 1.Hypertensive crisis. 2.Renal insufficiency, probably secondary to hypertension. 3.Elevated BNP secondary to hypertension. Echocardiogram is pending later. He is presently on Norv asc, losartan with hydrochlorothiazide as well as metoprolol. His blood pressure is improved. I agr ee with his present regimen. He can go home whenever it is okay with Dr. Heath. I will see him in the office as an outpatient. JONATHAN/JIMMY Voice ID: [id number] Report ID: [id number]
[2022-04-17] MEDS: NIFEDIPINE XL 60 MG TABLET PO SCH (20:15)
[2022-04-18] MEDS: NICOTINE 21 MG/PAT TD SCH ×2 (00:18→08:42)
[2022-04-18 01:55] VITALS: BMI 28.2
[2022-04-18] MEDS: METOPROLOL XL 100 MG TAB PO SCH (06:18)
--- NOTE | 2022-04-18 06:59 | ECHO ---
HEIGHT: 5 ft 6 in WEIGHT: 175 lb 0 oz DATE OF STUDY: 04/15/[address]: Baljeet Heath MD 2-DIMENSIONAL: YES M.MODE: YES DOPPLER: YES COLOR FLOW: YES TDS: NO PORTABLE: YES DEFINITY: NO BUBBLE STUDY: NO DIAGNOSIS: HYPERTENSION CARDIAC HISTORY: CATHERIZATION: SURGERY: PROSTHETIC VALVE: PACEMAKER: MEASUREMENTS (cm) DIASTOLIC (NORMALS) SYSTOLIC (NORMALS) IVSd 1.0 (0.6-1.2) LA Diam 3.1 (1.9-4.0) LVEF 64% LVIDd 4.2 (3.5-5.7) LVIDs 2.7 (2.0-3.5) %FS 34% LVPWd 1.2 (0.6-1.2) Ao Diam 3.4 (2.0-3.7) 2 DIMENSIONAL ASSESSMENT: RIGHT ATRIUM: NORMAL LEFT ATRIUM: NORMAL RIGHT VENTRICLE: NORMAL LEFT VENTRICLE: NORMAL TRICUSPID VALVE: MILD TR MITRAL VALVE: MILD MR PULMONIC VALVE: NORMAL AORTIC VALVE: THICKENED, NO PERICARDIAL EFFUSION: NONE AORTIC ROOT: NORMAL LEFT VENTRICULAR WALL MOTION: NORMAL DOPPLER/COLOR FLOW: SEE BELOW. COMMENTS: 1. NORMAL LEFT VENTRICULAR EJECTION FRACTION 60-65%. 2. NORMAL WALL MOTION. 3. MILD MITRAL REGURGITATION 4. MILD TRICUSPID REGURGITATION. 5. THICKENED AORTIC VALVE, NO AORTIC STENOSIS. TECHNOLOGIST: Jesus MCDONOUGH
[2022-04-18 07:04] LABS: Albumin 3.5 g/dL (3.4-5.0); Magnesium 2.3 mg/dL (1.6-2.4); Potassium 4.4 mmol/L (3.5-5.1)
--- NOTE | 2022-04-18 07:50 | RAD REPORT ---
EXAM DESCRIPTION: US - Abdomen Pelvis Scan US - 04/18/2022 5:32 am CLINICAL HISTORY: High blood pressure uncontrolled BP COMPARISON: [facility] Protocol dated 04/14/2022 FINDINGS: The right kidney measures 9.1 cm. The left kidney measures 6.9 cm and is asymmetrically sm aller. No hydronephrosis. Aortic velocity: 77 cm/second Right proximal renal artery: 72 cm/second Right mid renal artery: 77 cm/second Right distal renal artery: 53 cm/second Right renal arcuate artery resistive index: 0.6 Right renal artery / aorta ratio: 0.9 Left proximal renal artery: 42 cm/second Left mid renal artery: 30 cm/second Left distal renal artery: 31 cm/second Left renal arcuate artery resistive index: 0.6 Left renal artery/aorta ratio: 0.5 Normal waveforms demonstrated within the bilateral renal arteries. IMPRESSION: No evidence of hemodynamically significant stenosis within the bilateral renal arteries. Atrophic left kidney. No hydronephrosis.
[2022-04-18] MEDS: HYDRALAZINE HCL 25 MG TABLET PO SCH ×3 (08:42→22:03)
[2022-04-18] MEDS: NIFEDIPINE XL 60 MG TABLET PO SCH ×2 (08:42→22:01)
[2022-04-18] MEDS: DOCOSAHEXANOIC AC/EPA 1000 MG PO SCH ×2 (08:42→22:00)
[2022-04-18] MEDS: LOSARTAN/HCTZ 50-12.5 PO SCH (08:42)
[2022-04-18] MEDS: ENOXAPARIN 40 MG/0.4 ML SQ SCH (08:43)
[2022-04-18] MEDS ORDERED: NICOTINE 21 MG/PAT TD SCH (09:00)
[2022-04-18] MEDS: NA CHLORIDE 0.9% 1,000 ML IV SCH (13:51)
[2022-04-18 15:42] LABS: Urine Bacteria None Seen /HPF (<20); Urine Mucus Slight /HPF (None Seen); Urine RBC <5 /HPF (None Seen); Urine WBC Clump Rare /HPF (None Seen)
[2022-04-18 16:00] LABS: Urine Clarity Clear (Clear); Urine Color Yellow (Yellow)
[2022-04-18 16:01] LABS: Specific Gravity 1.021 (1.005-1.030); Urine Bilirubin Negative (Negative); Urine Blood Negative (Negative); Urine Glucose NEGATIVE (Negative)
[2022-04-18 16:02] LABS: Urine Protein TRACE (Negative); Urine Urobilinogen 0.2 (Normal)
--- NOTE | 2022-04-18 17:02 | P.PN ---
Subjective Date of Service: 04/18/22 Chief Complaint: Hypertensive Emergency Patient's blood pressure readings overall trending down. Renal function trended up. Patient has no complaint. He denies any headache. Physical Examination - Vital Signs Temperature: 98.0 F Blood Pressure: 143/84 Pulse: 62 Respirations: 16 Pulse Ox (%): 98 Assessment And Plan - Current Problems (Diagnosis) (1) Malignant hypertension Current Visit: Yes Status: Acute (2) Tobacco abuse Current Visit: Yes Status: Chronic (3) Chronic kidney disease, stage III (moderate) Current Visit: Yes Status: Acute - Plan Physical Exam General: Alert, In no apparent distress Neck: Supple, JVD not distended Respiratory: Clear to auscultation bilaterally, Normal air movement Cardiovascular: No edema, Regular rate/rhythm, Normal S1 S2 Gastrointestinal: Normal bowel sounds, No tenderness Musculoskeletal: No tenderness Integumentary: No rashes Neurological: Normal gait, Normal speech, Normal strength at 5/5 x4 extr, Normal affect Plan: MRI of the brain is negative. No acute CVA. Aphasia and visual changes likely secondary to malignant hypertension. Symptoms resolved Blood pressure continue to trend down Seen by nephrology. Currently on nifedipine, hydralazine, losartan and metoprolol. Renal Doppler negative for any significant stenosis or arterial occlusion. Screen for pheochromocytoma and hyperaldosteronism are pending. Echocardiogram is unremarkable. Serum creatinine trended up-likely secondary to severe hypertension. Nephrology is following. Continue to monitor renal function for improvement.
--- NOTE | 2022-04-18 17:44 | PN ---
Date of Progress Note: 04/18/2022 Subjective: Seen by bedside. He is doing well. Blood pressure has improved. Review of Systems: No chest pain, shortness of breath, orthopnea, cough, nausea, vomiting, diarrhea. No abdominal pain. No dysuria, polyuria, or urinary urgency. No skin rash. All other systems reviewed and they are n egative. Physical Examination: Vital Signs: Showed a temperature of 98.0, pulse 62, breathing at 16, blood pressure 143/84, saturat ing 98% on room air. General: Pleasant, middle-aged male, in no apparent distress. Head and Neck: Pupils are equal, reactive to light. Intact eye movements. No JVD. No cervical lym phadenopathy. Neck: Supple. Thyroid is not enlarged. Lungs: Clear to auscultation bilaterally. No rhonchi, rales, or crackles. No accessory muscle use. Heart: Regular rate and rhythm. No extra sounds. Abdomen: Soft, nontender. Bowel sounds positive. No organomegaly. No masses or hernia. No rigidi ty or rebound. Extremities: No clubbing or cyanosis. Intact pulses. Skin: No rash or nodules. Neuro: Alert, awake, oriented x3. No acute focal deficits appreciated. Investigations: BUN 46, creatinine 2.75, and hemoglobin 12.8. Assessment And Recommendation: 1.Hypertensive crisis. Blood pressure is the desirable range now. Continue current management. At 1 point, if blood pressure becomes a challenge to treat, I will recommend switching metoprolol to ca rvedilol as it has an alpha-margie properties that could potentially be more effective in lowering t he blood pressure. Continue Procardia XL which there is room also for adjustment if need be. 2.Acute on chronic renal failure with intractable hypertension. Recommend checking renal arterial Doppler to rule out renal artery stenosis. SR/MODL Voice ID: [id number] Report ID: [id number]
--- NOTE | 2022-04-18 22:16 | PN ---
Date of Progress Note: 04/18/2022 Chief Complaint: Acute kidney injury, chronic kidney disease stage 3, hypertensive urgency, and hype rtensive emergency. Subjective: The patient presented to the hospital because of headache, expressive aphasia, and visio n changes. His blood pressure was severely elevated up to 252/136 upon arrival to the emergency room . The patient was taking losartan and metoprolol at home. CT scan did not show acute abnormalities. Lab work revealed creatinine of 1.92, BNP 3106, WBC 11.2, BUN 30, and creatinine 1.92. The patient was found to have progressively worsening renal function since yesterday. Creatinine level increase d from 1.9 to 2.6. The patient has nonoliguric urine output, although he complains of weak urinary s tream and has history of BPH. Review of Systems: General: Denies fever or chills. Eyes: Denies vision changes. Ears, Nose, Mouth, And Throat: Denies sore throat or earache. Respiratory: Denies PND or orthopnea. Cardiovascular: Denies chest pain or palpitations. GI: Denies nausea or vomiting. Physical Examination: Lungs: Clear to auscultation bilaterally. Heart: S1, S2. Abdomen: Soft. Extremities: No edema. Impression And Plan: 1.Acute kidney injury. Previous creatinine baseline was 1.2 in 2016. Since yesterday, renal functi on has declined. The patient was started on Hyzaar during this admission. Plan is to stop angiotens in receptor margie and start mild hydration. 2.Hypertensive urgency. Workup is pending. Renal artery Doppler was ordered and serum metanephrine and serum cortisol levels are pending. 3.Transient ischemic attack. Currently asymptomatic. 4.Lower urinary tract symptoms. Plan is to check UA and urine culture and renal ultrasound with pos tvoid residual study and bladder ultrasound. EB/MODL Voice ID: [id number] Report ID: [id number]
[2022-04-19] MEDS: NA CHLORIDE 0.9% 1,000 ML IV SCH ×2 (02:40→10:09)
[2022-04-19 03:42] LABS: Absolute Lymphocytes (CBC) 2.4 K/uL (0.7-4.9); Hematocrit 39.3 % (39.6-49.0); Lymphocytes % 25.8 % (15.3-44.8); MCV 85.5 fL (80-100); MPV 7.5 fL (7.6-11.3); RBC Red Blood Cell Count 4.59 M/uL (4.33-5.43)
[2022-04-19 04:04] LABS: Albumin 3.1 g/dL (3.4-5.0); Magnesium 2.3 mg/dL (1.6-2.4); Phosphorus 3.9 mg/dL (2.5-4.9); Potassium 4.1 mmol/L (3.5-5.1)
[2022-04-19] MEDS: METOPROLOL XL 100 MG TAB PO SCH (06:17)
[2022-04-19] MEDS: NICOTINE 21 MG/PAT TD SCH (09:07)
[2022-04-19] MEDS: DOCOSAHEXANOIC AC/EPA 1000 MG PO SCH ×2 (09:08→21:40)
[2022-04-19] MEDS: NIFEDIPINE XL 60 MG TABLET PO SCH ×2 (09:08→21:41)
[2022-04-19] MEDS: ENOXAPARIN 40 MG/0.4 ML SQ SCH (09:08)
[2022-04-19] MEDS: HYDRALAZINE HCL 25 MG TABLET PO SCH ×3 (09:08→21:41)
--- NOTE | 2022-04-19 10:12 | P.PN ---
Subjective Date of Service: 04/19/22 Chief Complaint: Hypertensive Emergency Patient is a 67 year old male with past medical history of hypertension and GERD and tobacco use Pt presented to the emergency department with expressive aphasia, headache, and vision changes. His blood pressure was noted to be 252/136 upon arrival to ED. pt is known to have high BP , he takes losartan and metoprolol at home, but not monitoring BP , Head CT with no acute abnormalities, His labs are significant for WBC 11.2, BUN 33, Cr 1.92, BNP 3106. He reports that his symptoms have since resolved. pt denied nay NSAID, recreational drugs abuse, while hospitalzied he is on HCTZ-Losartan, Amlodipine and labetalol prn with no improvement in BP , Amlodipine to switched to Nifedipine, BP improved , but Cr increased to 2.8, 04/18 losartan stopped , and pt started on IVF Today Cr stable Bp flactuating will reduce IVF rate if cr cont to to be stable, will dc IVF tomorrow cont current meds Physical exam General: AAOx3, NAD, HEENT PERRLA, moist mucose membrane neck: supple, no elevated JVD CHEST; CTAB, no wheezes or rales HEART : RRR. Normal S1,2 no murmur or rub Abd: soft, Nt Ext: no edema Skin : No rash #MARBELLA possibly due to HTN vs ischemic ATN off lsoartan US: no hydronephrosis gradual BP control #HTN CKD III cr stable now ~1.8 cr 1.2 in [address] scan no hydronephrosis gradual BP control avoid NSAID and contrast #HTN Urgency off Loartan-HCTZ renal doppler: no stenosis f/U , Renin/aldosterone, serum metanephrine and serum cortisol Cont Nifedipine hydralazine low salt diet #TIA asymptomatic now now #Active smoker counseled Total time spent 45 minutes including documentation, reviewing labs , placing orders and discussing Physical Examination - Vital Signs Temperature: 97.9 F Blood Pressure: 177/97 Pulse: 71 Respirations: 16 Pulse Ox (%): 97 Assessment And Plan Physician Review: Patient Assessed, Agree with Above Assessment and Plan
[2022-04-19] MEDS ORDERED: LABETALOL 20 MG/4ML SYRINGE IV PRN (10:13)
[2022-04-19] MEDS: carvediloL 25 MG TAB PO SCH (17:28)
--- NOTE | 2022-04-19 18:17 | PN ---
Date of Progress Note: 04/19/2022 Subjective: Seen by bedside. Kidney function is improving. Blood pressure is still not well contro lled. Review of Systems: No chest pain, shortness of breath, orthopnea, cough. No nausea, vomiting, diarrhea. All other syst ems reviewed are they are negative. Physical Examination: Vital Signs: Reviewed. Head and Neck: Pupils are equal, reactive to light. Intact eye movements. No JVD. No cervical lym phadenopathy. Neck is supple. Thyroid is not enlarged. Lungs: Clear to auscultation bilaterally. No rhonchi, wheezing, or crackles. No accessory muscle u se. Heart: Regular rate and rhythm. No extra sounds. Abdomen: Soft, nontender. Bowel sounds positive. No organomegaly. No masses or hernia. No rigidi ty or rebound. Extremities: No clubbing, cyanosis. Intact pulses. Skin: No rash or nodules. Neuro: Alert, awake, oriented x3. No acute focal deficits appreciated. Investigations: BUN 58, creatinine 2.6. Yesterday, creatinine was 2.75 and hemoglobin 13.1. Assessment And Recommendations: 1.Hypertensive crisis. Blood pressure is improving. I will discontinue metoprolol and start him on Coreg 25 mg twice a day and continue Procardia XL. 2.Acute on chronic renal failure. Creatinine is improving. Continue to monitor. SR/MODL Voice ID: [id number] Report ID: [id number]
--- NOTE | 2022-04-19 20:20 | P.PN ---
Date of Service: 04/19/22 Subjective: doing well, no new/worsening symptoms ambulating ROS: A complete review of systems was performed and is negative except as mentioned above Physical Exam: Gen: NAD, AOx3 HEENT: normal conjunctiva, sclera anicteric CV: regular rate & rhythm, no edema Pulm: non-labored respirations, clear bilaterally Abd: soft, non-tender, non-distended Neuro: normal speech, normal affect, moves all extremities vitals reviewed Problem List Hypertensive emergency Nicotine dependence MARBELLA, on CKDIII aphasia, visual changes secondary to HTN emergency symptoms resolved meds titrated, BP much improved renal function worsened on 04/18, slight improvement 04/19 MARBELLA secondary to HTN vs ischemic ATN nephrology following, given IV fluids renal doppler negative renal U/S - one slightly smaller repeat BMP in AM VTE: lovenox Code: full Dispo: home, likely tomorrow
[2022-04-20] MEDS: NA CHLORIDE 0.9% 1,000 ML IV SCH (02:49)
[2022-04-20 04:40] LABS: Albumin 3.2 g/dL (3.4-5.0); Phosphorus 3.6 mg/dL (2.5-4.9)
[2022-04-20] MEDS: carvediloL 25 MG TAB PO SCH ×2 (06:44→17:23)
[2022-04-20] MEDS: NICOTINE 21 MG/PAT TD SCH (08:10)
[2022-04-20] MEDS: ENOXAPARIN 30 MG/0.3 ML SQ SCH (08:10)
[2022-04-20] MEDS: DOCOSAHEXANOIC AC/EPA 1000 MG PO SCH ×2 (08:11→20:57)
[2022-04-20] MEDS: NIFEDIPINE XL 60 MG TABLET PO SCH ×3 (08:12→20:57)
[2022-04-20] MEDS: HYDRALAZINE HCL 25 MG TABLET PO SCH (08:12)
[2022-04-20] MEDS ORDERED: HYDRALAZINE HCL 25 MG TABLET PO SCH (18:11)
--- NOTE | 2022-04-20 18:30 | PN ---
Date of Progress Note: 04/20/2022 Subjective: Seen by bedside. Doing clinically well. No new complaints. Blood pressure is much bet ter. Review of Systems: No chest pain, shortness of breath, orthopnea, cough, nausea, vomiting, diarrhea. No abdominal pain. No dysuria, polyuria, or urinary urgency. No skin rash. All other systems reviewed and they were negative. Physical Examination: Vital Signs: Temperature is 97.7, pulse 79, breathing at 16, blood pressure 122/80, saturating 97% o n room air. General: Pleasant, middle-aged male, in no apparent distress. Head and Neck: Pupils are equal, reactive to light. Intact eye movements. No JVD. No cervical lym phadenopathy. Neck: Supple. Thyroid is not enlarged. Lungs: Clear to auscultation bilaterally. No rhonchi, wheezing, or crackles. No accessory muscle u se. HEART: Regular rate and rhythm. No extra sounds. Abdomen: Soft, nontender. Bowel sounds positive. No organomegaly. No masses or hernia. No rigidi ty or rebound. Extremities: No edema, clubbing, or cyanosis. Intact pulses. Skin: No rash. Neurologic: Alert, awake, oriented x3. No acute focal deficits appreciated. Investigations: BUN 63, creatinine 2.7. Hemoglobin is 13.1. Assessment/recommendations: 1.Hypertensive crisis. Blood pressure is significantly better. I recommend to discontinue hydralaz ine and can keep him on the Coreg and nifedipine can be released on those medications. Follow up as an outpatient. 2.Acute on chronic kidney failure. Patient is being monitored by Nephrology. /JIMMY Voice ID: [id number] Report ID: [id number]
--- NOTE | 2022-04-20 19:57 | PN ---
Date of Progress Note: 04/20/2022 Subjective: The patient was admitted with urgent hypertension and acute kidney injury. The patient had rise in his kidney function from day before yesterday because of low blood pressure. The patient workup for secondary hypertension still pending. Physical Examination: Vital Signs: When I saw the patient, blood pressure 158/99, pulse of 83, afebrile. Chest: Clear to auscultation. Heart: S1, S2. Regular. Abdomen: Soft, nontender. Extremities: No edema. Neurologic: Alert. No focality. Laboratory Data: Hemoglobin 13. Sodium 138, potassium 4, bicarb 22, BUN 63, creatinine 2.7, GFR 25, calcium 8.8. Medications: Current medications the patient on include Lovenox, carvedilol 25 b.i.d., Tylenol, labetalol, nifedipine 60, and hydralazine. Assessment And Plan: 1. Acute kidney injury secondary to urgent hypertension superimposed with poor perfusion, low blood pressure. Currently creatinine plateau. The patient cleared from the renal standpoint for discharge planning. Continue on nifedipine, decreased hydralazine to 25 b.i.d. 2. Hypertension with urgent hypertension. Secondary hypertension workup is still pending. We will follow up as outpatient. Continue nifedipine and carvedilol. Decrease hydralazine to 25 b.i.d. 3. Hyponatremia. We will supplement. Time spent examining the patient [id number] reviewing data lab and radiology discussing the case with the patient placing order discussing the case with the team assembler including nursing discussing the case with the hospitalist more than 35-minute YUDELKA Voice ID: [id number] Report ID: [id number]
--- NOTE | 2022-04-20 21:56 | P.PN ---
Date of Service: 04/20/22 Subjective: feels better no new/worsening symptoms this morning BP on low end, need to avoid this low ROS: A complete review of systems was performed and is negative except as mentioned above Physical Exam: Gen: NAD, AOx3 HEENT: normal conjunctiva, sclera anicteric CV: regular rate & rhythm, no edema Pulm: non-labored respirations, clear bilaterally Abd: soft, non-tender, non-distended Neuro: normal speech, normal affect, moves all extremities vitals reviewed Problem List Hypertensive emergency Nicotine dependence MARBELLA, on CKDIII aphasia, visual changes secondary to HTN emergency symptoms resolved meds titrated, BP much improved now readings too low; need to avoid further hypotension, risk further insult to kidneys hydralazine held this AM, continued nifedipine cardio changed to coreg multiple changes today, renal function minimally worse renal function worsened on 04/18, slight improvement 04/19, worse 04/20 MARBELLA secondary to HTN vs ischemic ATN nephrology following, given IV fluids renal doppler negative renal U/S - one slightly smaller repeat BMP in AM VTE: lovenox Code: full Dispo: home, likely tomorrow pending better BP control and renal function
[2022-04-21 05:41] LABS: Phosphorus 3.7 mg/dL (2.5-4.9)
[2022-04-21] MEDS: carvediloL 25 MG TAB PO SCH (06:18)
[2022-04-21 08:05] VITALS: BP 116/81; TEMP 97.5
[2022-04-21] MEDS: ENOXAPARIN 30 MG/0.3 ML SQ SCH ×2 (08:06→08:11)
[2022-04-21] MEDS: NICOTINE 21 MG/PAT TD SCH (08:06)
[2022-04-21] MEDS: DOCOSAHEXANOIC AC/EPA 1000 MG PO SCH (08:06)
[2022-04-21] MEDS: NIFEDIPINE XL 60 MG TABLET PO SCH ×2 (08:08→08:11)
== END 2022-04-21 09:07 | disposition home or self-care (01) | DRG 305 ==
LOC: ER 15:30 → ERHOLD 19:15 → 4TH 20:08 → OBSVTOIN 04-17 10:57
PROVIDERS: ADMIT Internal Medicine; ATTEND Hospitalist
DX: I16.1 Hypertensive emergency (principal); R47.01 Aphasia; N17.9 Acute kidney failure, unspecified; E87.1 Hypo-osmolality and hyponatremia; G45.9 Transient cerebral ischemic attack, unspecified; I12.9 Hypertensive chronic kidney disease with stage 1 through stage 4 chronic kidney disease, or unspecified chronic kidney disease; N18.30 Chronic kidney disease, stage 3 unspecified; K21.9 Gastro-esophageal reflux disease without esophagitis; N28.9 Disorder of kidney and ureter, unspecified; F17.210 Nicotine dependence, cigarettes, uncomplicated; R79.89 Other specified abnormal findings of blood chemistry; Z60.2 Problems related to living alone; Z71.6 Tobacco abuse counseling; Z88.8 Allergy status to other drugs, medicaments and biological substances; Z79.899 Other long term (current) drug therapy; Z20.822 Contact with and (suspected) exposure to COVID-19
CPT/HCPCS: 36415; 70450; 70551; 71045; 74176; 76377; 80048; 80061; 80069; 80076; 81001; 82088; 82533; 82550; 83735; 83835; 83880; 84100; 84244; 84443; 84484; 85025; 85610; 87811; 93005; 93306; 93975; 96365; 96375; 99285; G0378; J1650; J2405; J3010; J7030; J7040

== ENCOUNTER 2022-04-28 18:29 | Observation (INO) | payer OTHER ==
--- NOTE | 2022-04-28 19:53 | RAD REPORT ---
EXAM DESCRIPTION: [place] Single View04/28/2022 7:45 pm CLINICAL HISTORY: sob COMPARISON: April 14, 2022 FINDINGS: The lungs appear clear of acute infiltrate. The heart is normal size IMPRESSION: No acute abnormalities displayed
[2022-04-28 19:57] LABS: Absolute Lymphocytes (CBC) 2.1 K/uL (0.7-4.9); Hematocrit 36.3 % (39.6-49.0); Lymphocytes % 19.5 % (15.3-44.8); MCV 83.9 fL (80-100); MPV 7.1 fL (7.6-11.3); RBC Red Blood Cell Count 4.33 M/uL (4.33-5.43)
[2022-04-28 19:57] LABS: Urine Bacteria None Seen /HPF (<20); Urine Mucus Slight /HPF (None Seen); Urine RBC <5 /HPF (None Seen)
[2022-04-28 19:58] LABS: Urine Blood Negative (Negative); Urine Glucose Negative (Negative); Urine Protein Trace (Negative); Urine Specific Gravity 1.025 (1.005-1.030)
[2022-04-28 20:02] LABS: Protime INR 1.01
[2022-04-28 20:18] LABS: Magnesium 2.4 mg/dL (1.6-2.4); Potassium 4.3 mmol/L (3.5-5.1); Troponin High Sensitivity 12.7 pg/mL (<58.9)
--- NOTE | 2022-04-28 20:34 | RAD REPORT ---
EXAM DESCRIPTION: USExtrem Venous W Compress Bil04/28/2022 8:10 pm CLINICAL HISTORY: Leg swelling COMPARISON: none FINDINGS: The common femoral, superficial femoral, greater saphenous, popliteal and posterior tibial veins bilaterally are compressible and demonstrate augmentation. Doppler demonstrates good flow. Grayscale, color and spectral analysis performed on all vessels IMPRESSION: No evidence of deep venous thrombosis involving either lower extremity.
[2022-04-28] MEDS ORDERED: FUROSEMIDE 40 MG/4 ML VIAL ONE (20:38)
--- NOTE | 2022-04-28 20:42 | EDPHYS ---
Physician Documentation [facility] Name: Lam Schroeder Age: 67 yrs Sex: Male : 1955 Arrival Date: 04/28/2022 Time: 18:40 Bed 18 Private MD: ED Physician Cesar Acosta HPI: 04/28 19:25 This 67 yrs old Male presents to ER via Ambulatory with complaints of Shortness Of cp Breath. 19:25 The patient has shortness of breath with light activity. cp 19:25 Onset: The symptoms/episode began/occurred today. cp 19:25 Duration: The symptoms are continuous, and are steadily getting worse. Associated signs cp and symptoms: Pertinent positives: back pain, Pertinent negatives: chest pain, fever, vomiting. Severity of symptoms: in the emergency department the symptoms are unchanged despite home interventions. Historical: - Allergies: 18:49 Ephedrine Analogues; aa5 - PMHx: 18:49 Hypertension; aa5 - Immunization history:: Adult Immunizations unknown. - Social history:: Smoking status: Patient reports the use of cigarette tobacco products, smokes one pack cigarettes per day. ROS: 19:30 Constitutional: Negative for fever, poor PO intake. cp 19:30 Eyes: Negative for injury, pain, redness, and discharge. cp 19:30 ENT: Negative for drainage from ear(s), ear pain, sore throat, difficulty swallowing, difficulty handling secretions. 19:30 Cardiovascular: Positive for edema, Negative for chest pain, palpitations. 19:30 Respiratory: Positive for shortness of breath, Negative for wheezing. 19:30 Abdomen/GI: Negative for abdominal pain, vomiting, diarrhea, constipation. 19:30 Back: Positive for pain at rest. 19:30 Neuro: Negative for altered mental status, dizziness, headache, syncope, weakness. 19:30 All other systems are negative. Exam: 19:35 Constitutional: The patient appears in no acute distress, alert, awake, cp non-diaphoretic, non-toxic, well developed, well nourished. 19:35 Head/Face: Normocephalic, atraumatic. cp 19:35 Eyes: Periorbital structures: appear normal, Conjunctiva: normal, no exudate, no injection, Sclera: no appreciated abnormality, Lids and lashes: appear normal, bilaterally. 19:35 ENT: External ear(s): are unremarkable, Nose: is normal, Mouth: Lips: moist, Oral mucosa: pink and intact, moist, Posterior pharynx: Airway: no evidence of obstruction, patent. 19:35 Neck: ROM/movement: is normal, is supple, without pain, no range of motions limitations. 19:35 Chest/axilla: Inspection: normal. 19:35 Cardiovascular: Rate: normal, Rhythm: regular, Edema: ankle edema, that is mild, JVD: is not appreciated. 19:35 Respiratory: the patient does not display signs of respiratory distress, Respirations: labored breathing, is not present, shallow respirations, that is mild, Breath sounds: decreased breath sounds, that are mild, throughout, stridor, is not appreciated, wheezing: is not appreciated. 19:35 Abdomen/GI: Inspection: abdomen appears normal, Palpation: abdomen is soft and non-tender, in all quadrants. 19:35 Back: pain, that is mild, ROM is normal. 19:35 Neuro: Orientation: to person, place \T\ time. Mentation: is normal, Motor: moves all fours, strength is normal, Sensation: is normal. 20:20 ECG was reviewed by the Attending Physician. Vital Signs: 18:50 BP 189 / 91; Pulse 98; Resp 20 S; Temp 98.3(TE); Pulse Ox 93% on R/A; Weight 72.57 kg aa5 (R); Height 5 ft. 6 in. (167.64 cm) (R); 20:17 BP 142 / 93; Pulse 100; Resp 21; Pulse Ox 96% on R/A; lg3 18:50 Body Mass Index 25.82 (72.57 kg, 167.64 cm) aa5 MDM: 18:50 Patient medically screened. cp 19:00 Differential diagnosis: Chronic Obstructive Pulmonary Disease bronchitis, pneumonia cp Myocardial Infarction pneumonia, Pneumothorax pulmonary edema, Pulmonary Embolism. 20:25 Data reviewed: vital signs, nurses notes, lab test result(s), EKG, radiologic studies, cp plain films. 20:25 Antibiotic administration: Not indicated, the patient does not have an appreciated cp infiltrate. 20:35 Consideration of Admission/Observation Patient was admitted/placed on observation. cp 20:35 Management of patient was discussed with the following: Hospitalist: Sirena Brown, PROOF COINS INSPECTOR. cp I considered the following discharge prescriptions or medication management in the emergency department Medications were administered in the Emergency Department. See MAR. Test considered but Not performed: CT: chest for PE. Care significantly affected by the following chronic conditions: Hypertension. Counseling: I had a detailed discussion with the patient and/or guardian regarding: the historical points, exam findings, and any diagnostic results supporting the discharge/admit diagnosis, the presence of at least one elevated blood pressure reading (>120/80) during this emergency department visit, lab results, radiology results, the need for further work-up and treatment in the hospital. 04/28 19:19 Order name: Basic Metabolic Panel; Complete Time: 20:20 cp 04/28 20:20 Interpretation: Normal except: BUN 36; CRE 1.80; GFR 41. cp 04/28 19:19 Order name: CBC with Diff; Complete Time: 20:04 04/28 20:04 Interpretation: Normal except: HGB 12.2; HCT 36.3; MPV 7.1. 04/28 19:19 Order name: D-Dimer; Complete Time: 20:20 cp 04/28 19:19 Order name: Magnesium; Complete Time: 20:20 cp 04/28 19:19 Order name: NT PRO-BNP; Complete Time: 20:20 cp 04/28 20:20 Interpretation: Abnormal: NT PRO-BNP 2160. 04/28 19:19 Order name: PT-INR; Complete Time: 20:20 cp 04/28 19:19 Order name: Troponin HS; Complete Time: 20:20 cp 04/28 19:19 Order name: Urine Microscopic Only; Complete Time: 20:04 04/28 20:04 Interpretation: Reviewed. 04/28 19:19 Order name: CK; Complete Time: 20:20 cp 04/28 19:57 Order name: COVID-19/FLU A+B; Complete Time: 21:51 cp 04/28 19:59 Order name: Urine Dipstick-Ancillary; Complete Time: 20:04 EDPA 04/28 20:04 Interpretation: Normal except: UPROT Trace. 04/29 02:06 Order name: CBC with Automated Diff; Complete Time: 03:32 EDMS 04/29 02:20 Order name: Basic Metabolic Panel; Complete Time: 03:32 EDMS 04/29 02:20 Order name: Phosphorus; Complete Time: 03:32 EDMS 04/28 19:19 Order name: XRAY Chest (1 view); Complete Time: 19:57 cp 04/28 19:57 Interpretation: Report review. cp 04/28 19:19 Order name: EKG; Complete Time: 19:20 cp 04/28 19:19 Order name: Cardiac monitoring; Complete Time: 19:52 cp 04/28 19:19 Order name: EKG - Nurse/Tech; Complete Time: 20:12 cp 04/28 19:19 Order name: IV Saline Lock; Complete Time: 19:52 cp 04/28 19:19 Order name: Labs collected and sent; Complete Time: 19:52 cp 04/28 19:19 Order name: O2 Per Protocol; Complete Time: 19:52 cp 04/28 19:19 Order name: O2 Sat Monitoring; Complete Time: 19:52 cp 04/28 19:19 Order name: US Extremity Venous W Compression Ambrose; Complete Time: 20:39 cp 04/28 19:19 Order name: Urine Dipstick-Ancillary (obtain specimen); Complete Time: 19:52 cp 04/29 02:20 Order name: Magnesium; Complete Time: 03:32 EDMS 04/29 09:13 Order name: NM EDMS EC:20 Rate is 98 beats/min. Rhythm is regular. MA interval is normal. QRS interval is normal. cp QT interval is normal. Interpreted by me. Reviewed by me. Administered Medications: 20:39 Drug: Lasix (furosemide) 40 mg Route: IVP; Site: right antecubital; lg3 21:20 Follow up: Response: No adverse reaction lg3 20:58 Drug: Lovenox (enoxaparin) 1 mg/kg Route: Sub-Q; Site: right lower abdomen; lg3 21:19 Follow up: Response: No adverse reaction lg3 Disposition Summary: 04/28/22 20:41 Hospitalization Ordered Hospitalization Status: Observation cp Provider: Baljeet Heath cp Condition: Stable cp Problem: new cp Symptoms: have improved cp Bed/Room Type: Standard cp Location: [facility] ER HOLD(04/28/22 22:51) cg Room Assignment: ERHOLD-(04/28/22 22:51) cg Diagnosis - Shortness of breath cp - Hypertensive heart and chronic kidney disease with heart failure and stage 1 cp through stage 4 chronic kidney disease, or unspecified chronic kidney disease Forms: - Medication Reconciliation Form cp - SBAR form cp Signatures: Dispatcher [employer] EDBreonna Morales, RN RN aa5 Andrés Cardona PA PA cp Garcia, Cindy, RN Katt Klein RN RN lg3 Manasa Henry, PAGilma PAGilma sb4 Corrections: (The following items were deleted from the chart) 22:51 20:41 Telemetry/MedSurg (observation) cp cg 22:51 20:41 cp cg 04/29 19:26 04/28 16:30 Constitutional: Negative for fever, poor PO intake, cp cp 04/30 03:04/29 19:30 Cardiovascular: Positive for edema, Negative for chest pain, palpitations, cp cp 04/30 03:04/29 19:30 Eyes: Negative for injury, pain, redness, and discharge, cp cp 04/30 03:04/29 19:30 ENT: Negative for drainage from ear(s), ear pain, sore throat, difficulty cp swallowing, difficulty handling secretions, cp 04/30 03:04/29 19:30 Respiratory: Positive for shortness of breath, Negative for wheezing, cp cp 04/30 03:04/29 19:30 Abdomen/GI: Negative for abdominal pain, vomiting, diarrhea, constipation, cp cp 04/30 03:04/29 19:30 Back: Positive for pain at rest, cp cp 04/30 03:04/29 19:30 Neuro: Negative for altered mental status, dizziness, headache, syncope, cp weakness, cp 04/30 03:04/29 19:30 All other systems are negative, cp cp
--- NOTE | 2022-04-28 20:42 | ER ---
Nurse's Notes [facility] Name: Lam Schroeder Age: 67 yrs Sex: Male : 1955 Arrival Date: 04/28/2022 Time: 18:40 Bed 18 Private MD: Diagnosis: Shortness of breath;Hypertensive heart and chronic kidney disease with heart failure and stage 1 through stage 4 chronic kidney disease, or unspecified chronic kidney disease Presentation: 04/28 18:50 Chief complaint: Patient states: SOB that began today, pt also c/o fatigue. Reports aa5 slight cough today. Denies chest pain. Reports recently being here for "high blood pressure that was affecting my kidneys". Coronavirus screen: shortness of breath. Ebola Screen: No symptoms or risks identified at this time. Initial Sepsis Screen: Does the patient meet any 2 criteria? No. Patient's initial sepsis screen is negative. Does the patient have a suspected source of infection? No. Patient's initial sepsis screen is negative. Risk Assessment: Do you want to hurt yourself or someone else? Patient reports no desire to harm self or others. Onset of symptoms was April 2022. 18:50 Acuity: ANI 3 aa5 18:50 Method Of Arrival: Ambulatory aa5 Historical: - Allergies: 18:49 Ephedrine Analogues; aa5 - PMHx: 18:49 Hypertension; aa5 - Immunization history:: Adult Immunizations unknown. - Social history:: Smoking status: Patient reports the use of cigarette tobacco products, smokes one pack cigarettes per day. Screenin:[facility] ED Fall Risk Assessment (Adult) History of falling in the last 3 months, lg3 including since admission No falls in past 3 months (0 pts) Confusion or Disorientation No (0 pts) Intoxicated or Sedated No (0 pts) Impaired Gait No (0 pts) Mobility Assist Device Used No (0 pt) Altered Elimination No (0 pt) Score/Fall Risk Level 0 - 2 = Low Risk Oriented to surroundings, Maintained a safe environment. Abuse screen: Denies threats or abuse. Denies injuries from another. Nutritional screening: No deficits noted. Tuberculosis screening: No symptoms or risk factors identified. Assessment: 20:15 General: Appears in no apparent distress. comfortable, Behavior is calm, cooperative. lg3 Pain: Denies pain. Neuro: No deficits noted. Leonardo Agitation-Sedation Scale (RASS): 0 - Alert and Calm Level of Consciousness is awake, alert, obeys commands, Oriented to person, place, time, situation. Cardiovascular: No deficits noted. Reports lightheadedness, shortness of breath, Capillary refill < 3 seconds Clubbing of nail beds is absent JVD is absent Patient's skin is warm and dry. Respiratory: Reports shortness of breath cough that is Airway is patent Trachea midline Respiratory effort is even, unlabored, Respiratory pattern is regular, symmetrical. GI: No deficits noted. No signs and/or symptoms were reported involving the gastrointestinal system. : No deficits noted. No signs and/or symptoms were reported regarding the genitourinary system. EENT: No deficits noted. No signs and/or symptoms were reported regarding the EENT system. Derm: No deficits noted. No signs and/or symptoms reported regarding the dermatologic system. Skin is intact, is healthy with good turgor, Skin is dry, Skin is normal. Musculoskeletal: Circulation, motion, and sensation intact. Range of motion: intact in all extremities, Reports generalized weakness. 23:41 General: daughter: Trice Schroeder [phone]. lg3 Vital Signs: 18:50 BP 189 / 91; Pulse 98; Resp 20 S; Temp 98.3(TE); Pulse Ox 93% on R/A; Weight 72.57 kg aa5 (R); Height 5 ft. 6 in. (167.64 cm) (R); 20:17 BP 142 / 93; Pulse 100; Resp 21; Pulse Ox 96% on R/A; lg3 18:50 Body Mass Index 25.82 (72.57 kg, 167.64 cm) aa5 ED Course: 18:40 Patient arrived in ED. as 18:43 Andrés Cardona PA is PHCP. cp 18:43 Cesar Acosta MD is Attending Physician. cp 18:49 Arm band placed on. aa5 18:52 Triage completed. aa5 19:47 XRAY Chest (1 view) In Process Unspecified. EDMS 19:53 Inserted saline lock: 20 gauge in right forearm, using aseptic technique. Blood ds4 collected. Missed attempt(s): 20 gauge in right antecubital area. Bleeding controlled, band aid applied, catheter tip intact. 20:12 US Extremity Venous W Compression Ambrose In Process Unspecified. EDMS 20:15 Patient has correct armband on for positive identification. Placed in gown. Bed in low lg3 position. Call light in reach. Side rails up X 1. Client placed on continuous cardiac and pulse oximetry monitoring. NIBP monitoring applied. roll machine operator on. Door closed. Noise minimized. Warm blanket given. Family accompanied patient. 20:15 Patient maintains SpO2 saturation greater than 95% on room air. lg3 20:40 Baljeet Heath is Hospitalizing Provider. cp 20:45 COVID-19/FLU A+B Sent. lg3 23:39 No provider procedures requiring assistance completed. Patient admitted, IV remains in lg3 place. 04/29 07:04 Katt Odell, RN is Primary Nurse. lg3 Administered Medications: 04/28 20:39 Drug: Lasix (furosemide) 40 mg Route: IVP; Site: right antecubital; lg3 21:20 Follow up: Response: No adverse reaction lg3 20:58 Drug: Lovenox (enoxaparin) 1 mg/kg Route: Sub-Q; Site: right lower abdomen; lg3 21:19 Follow up: Response: No adverse reaction lg3 Medication: 20:15 VIS not applicable for this client. lg3 Outcome: 20:41 Decision to Hospitalize by Provider. cp 23:39 Admitted to ER Hold. Please see [facility] for further documentation. lg3 23:39 Condition: stable 23:39 Instructed on the need for admit. 04/29 11:22 Patient left the ED. bp Signatures: Dispatcher [employer] Demetrice Storm Audri, RN RN aa5 Miko Gatica ds4 Andrés Cardona, EMELIA PA cp Mat Monahan RN RN bp Katt Odell, KRISTA VELASCO lg3 Renee Brooks mm9 Corrections: (The following items were deleted from the chart) 08:45 08:39 BP 133 / 89; Pulse 76bpm; Resp 16bpm; Pulse Ox 100%; Temp 98.9F Oral; mm9 mm9
--- NOTE | 2022-04-28 20:49 | P.HP ---
Certification for Inpatient Patient admitted to: Observation With expected LOS: <2 Midnights Patient will require the following post-hospital care: None Practitioner: I am a practitioner with admitting privileges, knowledge of patient current condition, hospital course, and medical plan of care. Services: Services provided to patient in accordance with Admission requirements found in Title 42 Section 412.3 of the Code of Federal Regulations Patient History Date of Service: 04/28/22 Reason for admission: PE Rule Out History of Present Illness: Patient is a 67 year old male with past medical history of hypertension, GERD, and tobacco abuse who presented to the emergency department with complaints of dyspnea, fatigue, and cough. Patient was discharged from this facility 5 days ago after undergoing treatment of hypertensive emergency and MARBELLA. He was discharged with carvedilol and nifedipime. He reports taking the medications as prescribed. He states that he been feeling generally ill since discharge- weak, lack of appetite, constipated. Today his labs are significant for ddimer 1893, creatinine 1.8, BUN 36, BNP 2160. Chest xray is unremarkable. Chest CTA could not be completed due to his kidney function. He received 40 mg IV lasix and therapeutic lovenox in the emergency department. Patient is admitted for observation, to obtain VQ scan in the morning. Allergies No Known Allergies Allergy (Verified 01/28/16 17:25) Home medications list reviewed: Yes Home Medications: [place]-3/Dha/Epa/Fish Oil [Fish Oil 1,000 mg Softgel] 2 each PO BID 01/28/16 Nifedipine Xl [Procardia XL*] 60 mg PO BID 30 Days #60 tab 04/21/22 carvediloL [Coreg*] 25 mg PO BID 30 Days #60 tab 04/21/22 - Past Medical/Surgical History Diabetic: No -: HTN -: GERD -: Tobacco abuse Past Surgical History: Patient denies surgical history Psychosocial/ Personal History: Patient lives at home alone. He has a son and daughter. - Family History Father -: Cancer - Social History Smoking Status: Current every day smoker Alcohol use: No CD- Drugs: No Caffeine use: Yes Place of Residence: Home Review of Systems General: Other (Fatigue) Respiratory: Cough, Shortness of Breath Physical Examination - Vital Signs Temperature: 98.3 F Blood Pressure: 142/93 Pulse: 100 Respirations: 21 Pulse Ox (%): 96 - Physical Exam General: Alert, In no apparent distress HEENT: Atraumatic, PERRLA, Other (Dry mucous membranes, pale), EOMI, Sclerae n onicteric Neck: Supple, 2+ carotid pulse no bruit Respiratory: Clear to auscultation bilaterally, Normal air movement Cardiovascular: Regular rate/rhythm, Normal S1 S2 Gastrointestinal: Normal bowel sounds, No tenderness Musculoskeletal: No tenderness Integumentary: No rashes Neurological: Normal speech, Normal strength at 5/5 x4 extr, Normal tone, Normal affect - Studies Laboratory Data (last 24 hrs) 04/28/22 19:52: PT 11.1, INR 1.01 04/28/22 19:52: WBC 10.90, Hgb 12.2 L, Hct 36.3 L, Plt Count 258 04/28/22 19:52: Sodium 138, Potassium 4.3, BUN 36 H, Creatinine 1.80 H, Glucose 97, Magnesium 2.4 Assessment and Plan - Problems (Diagnosis) (1) Elevated d-dimer Current Visit: Yes Status: Acute (2) Chronic kidney disease, stage III (moderate) Current Visit: Yes Status: Chronic Qualifiers: Chronic kidney disease stage 3 subtype: stage 3b (GFR 30-44) Qualified Code(s): N18.32 - Chronic kidney disease, stage 3b (3) Hypertension Current Visit: Yes Status: Chronic Qualifiers: Hypertension type: primary hypertension Qualified Code(s): I10 - Essential (primary) hypertension (4) Tobacco abuse Current Visit: Yes Status: Chronic (5) GERD (gastroesophageal reflux disease) Current Visit: Yes Status: Chronic Qualifiers: Esophagitis presence: without esophagitis Qualified Code(s): K21.9 - Gastro-esophageal reflux disease without esophagitis - Plan Patient is admitted for observation for PE rule out. VQ scan ordered for the morning. Ultrasound negative for DVT in bilateral lower extremities. Patient is borderline tachycardic/tachypneic, but not requiring supplemental O2. Therapeutic lovenox given in the ED. Kidney function improved compared to dispo 5 days ago. Covid/flu pending, could be contributing to his fatigue/shob. Monitor and replete electrolytes per protocol. Reconcile and continue home medications. Discharge Plan: Home Plan to discharge in: 24 Hours - Advance Directives Does patient have a Living Will: No Does patient have a Durable POA for Healthcare: No - Code Status/Comfort Care Code Status Assessed: Yes Code Status: Full Code Physician Review: Patient Assessed, Agree with Above Assessment and Plan Critical Care: No Time Spent Managing Pts Care (In Minutes): 50
[2022-04-28] MEDS ORDERED: ENOXAPARIN 80 MG/0.8 ML SQ ONE (21:00)
[2022-04-28 21:43] LABS: SARS-COV-2 RT PCR NEGATIVE (NEGATIVE)
[2022-04-28] MEDS ORDERED: ACETAMINOPHEN 500 MG TAB PO PRN (23:20)
[2022-04-28] MEDS ORDERED: IPRATROPIUM BROM 0.5MG/2.5ML NEB PRN (23:20)
[2022-04-28] MEDS ORDERED: ALBUTEROL 2.5 MG/3 ML NEB SOL NEB PRN (23:20)
[2022-04-28] MEDS ORDERED: ONDANSETRON 4 MG/2 ML VIAL IV PRN (23:20)
[2022-04-28 23:36] VITALS: BMI 25.8
[2022-04-29 02:05] LABS: Absolute Lymphocytes (CBC) 2.5 K/uL (0.7-4.9); Hematocrit 34.4 % (39.6-49.0); Lymphocytes % 23.1 % (15.3-44.8); MCV 84.1 fL (80-100); MPV 7.1 fL (7.6-11.3); RBC Red Blood Cell Count 4.09 M/uL (4.33-5.43)
[2022-04-29 02:19] LABS: Magnesium 2.2 mg/dL (1.6-2.4); Phosphorus 3.7 mg/dL (2.5-4.9); Potassium 3.8 mmol/L (3.5-5.1)
[2022-04-29 03:01] VITALS: TEMP 98.9
[2022-04-29] MEDS ORDERED: INFLUENZA VACCINE (for 6+ mo) 0.5 ML DOSE IMVAC ONE (08:00)
[2022-04-29] MEDS ORDERED: PNEUMOCOCCAL VACCINE 0.5 ML IMVAC ONE (08:00)
[2022-04-29 08:29] VITALS: BP 126/89
[2022-04-29] MEDS ORDERED: ENOXAPARIN 80 MG/0.8 ML SQ SCH (09:00)
--- NOTE | 2022-04-29 09:13 | RAD REPORT ---
EXAM DESCRIPTION: NM - Vent Perfusion VQ Scan - 04/29/2022 8:49 am CLINICAL HISTORY: elevated ddimer shodelroy COMPARISON: Portable chest 04/28/2022 TECHNIQUE: The patient was administered 21.8 mCi Xenon 133 gas with posterior projection inspiration , equilibrium, and washout views obtained. The patient was then administered 6.9 mCi Tc-99m MAA label ed RBCs followed by standard 8 view protocol. FINDINGS: There is good distribution of the Xenon with no ventilation defects identified. Mild diffu se air trapping is present. Perfusion images show no defects suspicious for pulmonary emboli. IMPRESSION: Negative V/Q scan for pulmonary embolism. No ventilation defect is seen. There is a mild diffuse air trapping pattern present.
[2022-04-29 09:45] VITALS: O2SAT 95
--- NOTE | 2022-04-29 10:55 | P.DS ---
Admission Date: 04/28/22 Discharge Date: 04/29/22 Disposition: ROUTINE DISCHARGE Discharge Condition: FAIR Reason for Admission: PE Rule Out - Problems (1) Elevated d-dimer Status: Acute (2) Hypertension Status: Chronic Qualifiers: Hypertension type: primary hypertension Qualified Code(s): I10 - Essential (primary) hypertension Brief History of Present Illness: Patient is a 67 year old male with past medical history of hypertension, GERD, and tobacco abuse who presented to the emergency department with complaints of dyspnea, fatigue, and cough. Patient was discharged from this facility 5 days ago after undergoing treatment of hypertensive emergency and MARBELLA. He was dischar ged with carvedilol and nifedipime. He reports taking the medications as prescribed. He states that he been feeling generally ill since discharge- weak, lack of appetite and constipated. His labs weree significant for ddimer 1893, creatinine 1.8, BUN 36, BNP 2160. Chest xray is unremarkable. Chest CTA could not be completed due to his impaired kidney function. He received 40 mg IV lasix and therapeutic lovenox in the emergency department. Patient was hospitalized for further evaluation and treatment. Hospital Course: Patient was asymptomatic during the hospital stay. VQ scan was done which was negative for pulm embolism. He was at baseline with stable vitals, normotensive. He has been ambulatory and asymptomatic. Patient is deemed stable for discharge. Vital Signs/Physical Exam: Temp Pulse Resp BP Pulse Ox 98.9 F 83 16 126/89 95 04/29/22 02:59 04/29/22 08:00 04/29/22 08:00 04/29/22 08:00 04/29/22 08:00 General: Alert, In no apparent distress, Oriented x3 HEENT: Mucous membr. moist/pink Neck: Supple, JVD not distended Respiratory: Normal air movement Cardiovascular: No edema, Regular rate/rhythm, Normal S1 S2 Gastrointestinal: Soft and benign, Non-distended Musculoskeletal: No swelling Integumentary: No rashes, No cyanosis Neurological: Normal strength at 5/5 x4 extr Laboratory Data at Discharge: WBC 10.90 K/uL (4.3-10.9) 04/29/22 01:55 Hgb 11.5 g/dL (13.6-17.9) L 04/29/22 01:55 Hct 34.4 % (39.6-49.0) L 04/29/22 01:55 Plt Count 227 K/uL (152-406) 04/29/22 01:55 PT 11.1 SECONDS (9.5-12.5) 04/28/22 19:52 INR 1.01 04/28/22 19:52 Sodium 138 mmol/L (136-145) 04/29/22 01:55 Potassium 3.8 mmol/L (3.5-5.1) 04/29/22 01:55 BUN 36 mg/dL (7-18) H 04/29/22 01:55 Creatinine 1.82 mg/dL (0.70-1.30) H 04/29/22 01:55 Glucose 107 mg/dL (74-106) H 04/29/22 01:55 Phosphorus 3.7 mg/dL (2.5-4.9) 04/29/22 01:55 Magnesium 2.2 mg/dL (1.6-2.4) 04/29/22 01:55 Home Medications: [place]-3/Dha/Epa/Fish Oil [Fish Oil 1,000 mg Softgel] 2 each PO BID 01/28/16 Nifedipine Xl [Procardia XL*] 60 mg PO BID 30 Days #60 tab 04/21/22 carvediloL [Coreg*] 25 mg PO BID 30 Days #60 tab 04/21/22 Fluticasone/Salmeterol [Advair 250-50 Diskus] 1 each IH BID #1 kit 04/29/22 Losartan/Hydrochlorothiazide [Losartan-Hctz 100-25 mg Tab] 1 each PO DAILY 04/29/22 Metoprolol Succinate [Toprol Xl] 100 mg PO DAILY 04/29/22 New Medications: Fluticasone/Salmeterol [Advair 250-50 Diskus] 1 each IH BID #1 kit
--- NOTE | 2022-04-29 13:16 | EKG ---
Test Date: 2022-04-28 Test Time: 20:14:00 Tandem Mill Operator: CORIE MEASUREMENT RESULTS: Intervals: Rate: 98 MS: 154 QRSD: 64 QT: 344 QTc: 439 Welch: P: 62 MS: 154 QRS: 43 T: 59 INTERPRETIVE STATEMENTS: Normal sinus rhythm ST & T wave abnormality, consider lateral ischemia Abnormal ECG Compared to ECG 04/14/2022 15:57:46 ST (T wave) deviation now present Possible ischemia now present T-wave abnormality no longer present Electronically Signed On 04-29-22 13:14:37 FULL STACK WEB DEVELOPER by Esteban Lynch
== END 2022-04-29 11:28 | disposition home or self-care (01) ==
LOC: ER 18:29 → ERHOLD 20:45
PROVIDERS: ADMIT Internal Medicine; ATTEND Internal Medicine
DX: R06.00 Dyspnea, unspecified (principal); R05.9 Cough, unspecified; R79.1 Abnormal coagulation profile; I10 Essential (primary) hypertension; K21.9 Gastro-esophageal reflux disease without esophagitis; Z72.0 Tobacco use; N18.32 Chronic kidney disease, stage 3b; Z20.822 Contact with and (suspected) exposure to COVID-19
CPT/HCPCS: 93005; 85025 ×2; 80048 ×2; 36415; 83735 ×2; 82550; 84100; 85610; 85379; 84484; 83880; 0240U; 71045; 93970; 94760; 78582; 96372; 96374; 99285; J1940; J1650; A9558; A9540; 81003; 81015; G0378

== ENCOUNTER 2022-05-18 10:42 | Emergency (ER) | payer OTHER ==
--- NOTE | 2022-05-18 12:23 | RAD REPORT ---
EXAM DESCRIPTION: Killian Single View05/18/2022 12:08 pm CLINICAL HISTORY: Hypertension/swelling COMPARISON: April 2022 FINDINGS: The lungs appear clear of acute infiltrate. The heart is normal size. Aorta is tortuous/ec tatic IMPRESSION: No acute abnormalities displayed
--- NOTE | 2022-05-18 12:36 | RAD REPORT ---
EXAM DESCRIPTION: USExtremity Venous Uni Ltd05/18/2022 12:25 pm CLINICAL HISTORY: left leg swelling COMPARISON: April 2022 FINDINGS: Left common femoral, superficial femoral, greater saphenous, popliteal and posterior tibi al veins are compressible and demonstrate augmentation. Doppler demonstrates good flow. Grayscale, color and spectral analysis performed on all vessels IMPRESSION: No evidence of deep venous thrombosis involving the left lower extremity.
[2022-05-18 13:09] LABS: Absolute Lymphocytes (CBC) 1.8 K/uL (0.7-4.9); Hematocrit 36.3 % (39.6-49.0); Lymphocytes % 21.3 % (15.3-44.8); MCV 83.4 fL (80-100); MPV 7.5 fL (7.6-11.3); RBC Red Blood Cell Count 4.36 M/uL (4.33-5.43)
[2022-05-18 13:26] LABS: Albumin 3.7 g/dL (3.4-5.0); Bilirubin Total 0.6 mg/dL (0.2-1.0); Magnesium 2.6 mg/dL (1.6-2.4); Potassium 4.3 mmol/L (3.5-5.1); Protein, Total 8.4 g/dL (6.4-8.2); Troponin High Sensitivity 8.5 pg/mL (<58.9)
[2022-05-18] MEDS ORDERED: HYDRALAZINE HCL 20 MG/ML VIAL ONE (13:41)
--- NOTE | 2022-05-18 15:45 | ER ---
Nurse's Notes [facility] Name: Lam Schroeder Age: 67 yrs Sex: Male : 1955 Arrival Date: 05/18/2022 Time: 10:44 Bed 9 Private MD: Diagnosis: Essential (primary) hypertension Presentation: 05/18 11:14 Chief complaint: Patient states: he had high blood pressure this morning when he took ap3 his blood pressure stating it was 200's/100s. patient states he called his PCP who informed him to come be evaluated. patient denies any headache, nausea , vomiting or vision changes. patient states he took his home blood pressure medications this morning. Coronavirus screen: At this time, the client does not indicate any symptoms associated with coronavirus-19. Ebola Screen: No symptoms or risks identified at this time. Initial Sepsis Screen: Does the patient meet any 2 criteria? No. Patient's initial sepsis screen is negative. Does the patient have a suspected source of infection? No. Patient's initial sepsis screen is negative. Risk Assessment: Do you want to hurt yourself or someone else? Patient reports no desire to harm self or others. Onset of symptoms was May 18, 2022. 11:14 Method Of Arrival: Ambulatory ap3 11:14 Acuity: ANI 2 ap3 Triage Assessment: 11:18 General: Appears in no apparent distress. Behavior is calm, cooperative. Pain: Denies ap3 pain. Neuro: Level of Consciousness is awake, alert, obeys commands, Oriented to person, place, time. Cardiovascular: Patient's skin is warm and dry. Respiratory: Airway is patent Respiratory effort is even, unlabored, Respiratory pattern is regular, symmetrical. Historical: - Allergies: 11:18 Ephedrine Analogues; ap3 - Home Meds: 11:18 losartan-hydrochlorothiazide 50-12.5 mg oral tab 1 tab once daily [Active]; carvedilol ap3 25 mg oral tab 1 tab 2 times per day [Active]; nifedipine 60 mg Oral TbER 1 tab once daily [Active]; - PMHx: 11:18 Hypertension; ap3 - Immunization history:: Client reports having NOT received the Covid vaccine. Flu vaccine is not up to date. - Social history:: Smoking status: Patient reports the use of cigarette tobacco products, denies chronic smoking, but will smoke occasionally. Screenin:20 [facility] ED Fall Risk Assessment (Adult) History of falling in the last 3 months, ap3 including since admission No falls in past 3 months (0 pts). Abuse screen: Denies threats or abuse. Nutritional screening: No deficits noted. Tuberculosis screening: No symptoms or risk factors identified. Assessment: 12:35 General: Appears in no apparent distress. comfortable, Behavior is calm, cooperative, eh3 appropriate for age. Pain: Denies pain. Neuro: Level of Consciousness is awake, alert, obeys commands, Oriented to person, place, time, situation. Cardiovascular: Capillary refill < 3 seconds Patient's skin is warm and dry. Cardiovascular: Rhythm is sinus rhythm. Respiratory: Airway is patent Respiratory effort is even, unlabored, Respiratory pattern is regular, symmetrical. GI: No signs and/or symptoms were reported involving the gastrointestinal system. Abdomen is round non-distended. : No signs and/or symptoms were reported regarding the genitourinary system. EENT: No signs and/or symptoms were reported regarding the EENT system. Derm: No signs and/or symptoms reported regarding the dermatologic system. Skin is pink, warm \T\ dry. Musculoskeletal: No signs and/or symptoms reported regarding the musculoskeletal system. Circulation, motion, and sensation intact. Range of motion: intact in all extremities. 13:00 Reassessment: Patient appears in no apparent distress at this time. Patient and/or eh3 family updated on plan of care and expected duration. Pain level reassessed. Patient is alert, oriented x 3, equal unlabored respirations, skin warm/dry/pink. 14:00 Reassessment: Patient appears in no apparent distress at this time. Patient and/or eh3 family updated on plan of care and expected duration. Pain level reassessed. Patient is alert, oriented x 3, equal unlabored respirations, skin warm/dry/pink. 15:00 Reassessment: Patient appears in no apparent distress at this time. Patient and/or eh3 family updated on plan of care and expected duration. Pain level reassessed. Patient is alert, oriented x 3, equal unlabored respirations, skin warm/dry/pink. Vital Signs: 11:14 BP 195 / 117; Pulse 76; Resp 17; Temp 97.7; Pulse Ox 98% ; Weight 74.84 kg; ap3 12:56 BP 188 / 114 LA Sitting (man/reg); Pulse 88; Resp 16; Pulse Ox 100% on R/A; eh3 12:56 BP 214 / 108 RA Sitting (auto/reg); Pulse 83; Resp 16; Pulse Ox 100% on R/A; eh3 14:00 BP 145 / 92; Pulse 88; Resp 16; Pulse Ox 98% on R/A; eh3 15:00 BP 127 / 96; Pulse 82; Resp 16; Pulse Ox 97% on R/A; eh3 ED Course: 10:44 Patient arrived in ED. rg4 10:48 Dianne Luis F[facility]-C [facility]. kb 10:49 Tera Quintanilla MD is Attending Physician. kb 11:18 Triage completed. ap3 11:20 Arm band placed on right wrist. ap3 12:35 Navya Isabel, RN is Primary Nurse. eh3 12:35 Patient has correct armband on for positive identification. Bed in low position. Call 3 light in reach. Side rails up X2. Adult w/ patient. Client placed on continuous cardiac and pulse oximetry monitoring. NIBP monitoring applied. Door closed. Noise minimized. Lights dimmed. Warm blanket given. 12:56 Inserted saline lock: 20 gauge in right antecubital area, using aseptic technique. eh3 Blood collected. 15:56 No provider procedures requiring assistance completed. IV discontinued, intact, eh3 bleeding controlled, No redness/swelling at site. Pressure dressing applied. Administered Medications: 13:51 Drug: hydrALAZINE 10 mg Route: IVP; Site: right antecubital; eh3 15:00 Follow up: Response: Blood pressure is lowered eh3 Medication: 15:56 VIS not applicable for this client. eh3 Outcome: 15:45 Discharge ordered by . kb 16:05 Discharged to home ambulatory, with family. eh3 16:05 Condition: stable 16:05 Discharge instructions given to patient, family, Instructed on discharge instructions, follow up and referral plans. Demonstrated understanding of instructions, follow-up care. 16:05 Patient left the ED. eh3 Signatures: Dianne Luis FNP-C FNP-Ckb Garcia, Rubi rg4 Neida Solorio RN RN 3 Navya Isabel RN RN 3
--- NOTE | 2022-05-18 15:46 | EDPHYS ---
Physician Documentation [facility] Name: Lam Schroeder Age: 67 yrs Sex: Male : 1955 Arrival Date: 05/18/2022 Time: 10:44 Bed 9 Private MD: ED Physician Tera Quintanilla HPI: 05/18 11:30 This 67 yrs old Male presents to ER via Ambulatory with complaints of High Blood kb Pressure. 11:30 The patient has elevated blood pressure and discovered this at home. Onset: The kb symptoms/episode began/occurred this morning. Modifying factors: The symptoms are aggravated by discontinuation of meds. Associated signs and symptoms: The patient has no apparent associated signs or symptoms. Severity of symptoms: At its worst the blood pressure was moderate, 200 mm Hg, in the emergency department the blood pressure is unchanged. The patient has not experienced similar symptoms in the past. The patient has not recently seen a physician. Patient reports he takes his blood pressure every morning prior to taking his medications. This morning it was 200s over 100s. Called his PCP and was told to come to the ER for evaluation. Patient denies any symptoms including chest pain, headache, dizziness, syncope. Reports nifedipine was decreased from twice a day to once a day yesterday so he did not take his evening dose last night.. Historical: - Allergies: 11:18 Ephedrine Analogues; ap3 - Home Meds: 11:18 losartan-hydrochlorothiazide 50-12.5 mg oral tab 1 tab once daily [Active]; carvedilol ap3 25 mg oral tab 1 tab 2 times per day [Active]; nifedipine 60 mg Oral TbER 1 tab once daily [Active]; - PMHx: 11:18 Hypertension; ap3 - Immunization history:: Client reports having NOT received the Covid vaccine. Flu vaccine is not up to date. - Social history:: Smoking status: Patient reports the use of cigarette tobacco products, denies chronic smoking, but will smoke occasionally. ROS: 11:29 Constitutional: Negative for fever, chills, and weight loss. kb 11:29 All other systems are negative. Exam: 11:29 Constitutional: This is a well developed, well nourished patient who is awake, alert, kb and in no acute distress. Head/Face: Normocephalic, atraumatic. ENT: Moist Mucous membranes Cardiovascular: Regular rate and rhythm with a normal S1 and S2. No gallops, murmurs, or rubs. No pulse deficits. Respiratory: Respirations even and unlabored. No increased work of breathing. Talking in full sentences Abdomen/GI: Soft, non-tender. No distention Skin: Warm, dry with normal turgor. Normal color. MS/ Extremity: Pulses equal, no cyanosis. Neurovascular intact. Full, normal range of motion. Neuro: Awake and alert, GCS 15, oriented to person, place, time, and situation. Moves all extremities. Normal gait. Psych: Awake, alert, with orientation to person, place and time. Behavior, mood, and affect are within normal limits. 13:09 ECG was reviewed by the Attending Physician. Vital Signs: 11:14 BP 195 / 117; Pulse 76; Resp 17; Temp 97.7; Pulse Ox 98% ; Weight 74.84 kg; ap3 12:56 BP 188 / 114 LA Sitting (man/reg); Pulse 88; Resp 16; Pulse Ox 100% on R/A; eh3 12:56 BP 214 / 108 RA Sitting (auto/reg); Pulse 83; Resp 16; Pulse Ox 100% on R/A; eh3 14:00 BP 145 / 92; Pulse 88; Resp 16; Pulse Ox 98% on R/A; eh3 15:00 BP 127 / 96; Pulse 82; Resp 16; Pulse Ox 97% on R/A; eh3 MDM: 11:20 Patient medically screened. kb 11:29 Data reviewed: vital signs, nurses notes. kb 11:39 Differential diagnosis: hypertensive crisis, uncontrolled hypertension. kb 13:30 Management of patient was discussed with the following: Dr. Quintanilla who does not kb recommend CT of aorta at this time due to asymptomatic patient.. 15:44 Counseling: I had a detailed discussion with the patient and/or guardian regarding: the kb historical points, exam findings, and any diagnostic results supporting the discharge/admit diagnosis, lab results, radiology results, the need for outpatient follow up, a family practitioner, to return to the emergency department if symptoms worsen or persist or if there are any questions or concerns that arise at home. 15:46 Response to treatment: the patient's symptoms have resolved after treatment. ED course: Patient continues to be asymptomatic. Blood pressure 127/76. Discussed need to keep blood pressure log and follow-up with Dr. Buckley for management of hypertension. Return precautions given. Verbal understanding received.. 05/18 11:21 Order name: CBC with Diff kb 05/18 11:21 Order name: Magnesium kb 05/18 11:21 Order name: NT PRO-BNP kb 05/18 11:21 Order name: Troponin HS kb 05/18 11:21 Order name: CMP kb 05/18 13:12 Order name: CBC with Automated Diff; Complete Time: 13:16 EDMS 05/18 11:21 Order name: XRAY Chest (1 view) kb 05/18 11:44 Order name: US Extremity Venous Unilateral Ltd kb 05/18 12:23 Order name: RAD; Complete Time: 12:27 EDMS 05/18 12:36 Order name: US; Complete Time: 12:38 EDMS 05/18 13:27 Order name: Comprehensive Metabolic Panel; Complete Time: 13:30 EDMS 05/18 13:27 Order name: Troponin High Sensitivity; Complete Time: 13:30 EDMS 05/18 13:27 Order name: NT PRO-BNP; Complete Time: 13:30 EDMS 05/18 13:27 Order name: Magnesium; Complete Time: 13:30 EDMS 05/18 11:21 Order name: EKG; Complete Time: 11:21 kb 05/18 11:21 Order name: Cardiac monitoring; Complete Time: 12:55 kb 05/18 11:21 Order name: EKG - Nurse/Tech; Complete Time: 12:56 kb 05/18 11:21 Order name: IV Saline Lock; Complete Time: 12:56 kb 05/18 11:21 Order name: Labs collected and sent; Complete Time: 12:56 kb 05/18 11:21 Order name: O2 Per Protocol; Complete Time: 12:33 kb 05/18 11:21 Order name: O2 Sat Monitoring; Complete Time: 12:33 kb 05/18 12:27 Order name: Bilateral blood pressure; Complete Time: 13:02 kb 05/18 14:26 Order name: Vital Signs; Complete Time: 15:05 kb EC:09 Rate is 77 beats/min. Rhythm is regular. QRS [place] is Normal. OR interval is normal at kb 166 msec. QRS interval is normal at 70 msec. QT interval is normal at 400 msec. Administered Medications: 13:51 Drug: hydrALAZINE 10 mg Route: IVP; Site: right antecubital; eh3 15:00 Follow up: Response: Blood pressure is lowered eh3 Disposition Summary: 05/18/22 15:45 Discharge Ordered Location: Home kb Condition: Stable kb Diagnosis - Essential (primary) hypertension kb Followup: kb - With: Emergency Department - When: As needed - Reason: Worsening of condition Followup: kb - With: Private Physician - When: 2 - 3 days - Reason: Recheck today's complaints, Continuance of care, Re-evaluation by your physician Discharge Instructions: - Discharge Summary Sheet kb - Hypertension, Adult, [id number] kb - How to Take Your Blood Pressure, [id number] kb - Managing Your Hypertension kb Forms: - Medication Reconciliation Form kb - Thank You Letter kb - Antibiotic Education kb - Prescription Opioid Use kb Signatures: Dispatcher [employer] EDMS Dianne Luis, ROMY PARRA-Neida Sánchez RN RN ap3 Navya Isabel RN RN eh3 Tera Quintanilla MD MD bs3 Corrections: (The following items were deleted from the chart) 11:39 11:30 Patient reports he takes his blood pressure every morning prior to taking his kb medications. This morning it was 200s over 100s. Called his PCP and was told to come to the ER for evaluation. Patient denies any symptoms including chest pain, headache, dizziness, syncope.. kb
[2022-05-18 16:50] VITALS: TEMP 97.7
[2022-05-18 16:54] VITALS: BP 127/96; O2SAT 97
--- NOTE | 2022-05-19 11:53 | EKG ---
Test Date: 2022-05-18 Test Time: 12:43:33 Clutch Mechanic: ALICIA MEASUREMENT RESULTS: Intervals: Rate: 77 RI: 166 QRSD: 70 QT: 354 QTc: 400 Peytona: P: 72 RI: 166 QRS: 61 T: 53 INTERPRETIVE STATEMENTS: Normal sinus rhythm Normal ECG Compared to ECG 04/28/2022 20:14:00 ST (T wave) deviation no longer present Possible ischemia no longer present Electronically Signed On 05-19-22 11:51:34 GUIDANCE CONSULTANT by Esteban Lynch
== END 2022-05-18 16:05 | disposition home or self-care (01) ==
LOC: ER 10:42
DX: I10 Essential (primary) hypertension (principal); F17.210 Nicotine dependence, cigarettes, uncomplicated; Z88.8 Allergy status to other drugs, medicaments and biological substances
CPT/HCPCS: 85025; 36415; 83735; 84484; 80053; 83880; 71045; 93971; J0360; 93005

== ENCOUNTER 2022-06-02 10:32 | Inpatient (IN) | payer OTHER ==
[2022-06-02 11:10] LABS: SARS-CoV-2 Antigen Rapid Res Negative (Negative)
[2022-06-02 12:56] VITALS: BMI 26.6
[2022-06-02] MEDS: NA CHLORIDE 0.9% 1,000 ML IV SCH (13:26)
[2022-06-02] MEDS ORDERED: carvediloL 25 MG TAB PO ONE (14:26)
[2022-06-02 14:32] LABS: Hematocrit 30.8 % (39.6-49.0); Lymphocytes % 23.2 % (15.3-44.8); MCV 82.9 fL (80-100); MPV 7.5 fL (7.6-11.3); RBC Red Blood Cell Count 3.71 M/uL (4.33-5.43)
--- NOTE | 2022-06-02 14:37 | RAD REPORT ---
EXAM DESCRIPTION: US - Renal Ultrasound-Complete - 06/02/2022 1:17 pm CLINICAL HISTORY: acute kidney injury COMPARISON: [facility] Protocol CT dated 04/14/2022 FINDINGS: Sonographic grayscale and color flow images of the kidneys and bladder were obtained. Right kidney is normal in size, shape and echotexture. The left kidney is atrophic, with marked corti desmond thinning and hyperechogenicity. The right kidney measures 10 centimeter in length. No hydronephrosis, focal mass or perinephric fluid . The left kidney measures 8.6 centimeter in length. No hydronephrosis, focal mass or perinephric fluid . Incidentally noted bilateral small anechoic cortical cysts approximating the pelvis, each measuring 1 1 millimeter. The urinary bladder is well distended without gross abnormality seen. Incidentally noted prostatomegaly with mild mass effect on the bladder neck. IMPRESSION: No hydronephrosis or echogenic calculi. Atrophic changes of the left kidney, suggesting long-standing renal disease. Prostatomegaly.
[2022-06-02 14:47] LABS: Bilirubin Total 0.4 mg/dL (0.2-1.0); Magnesium 2.2 mg/dL (1.6-2.4); Potassium 4.5 mmol/L (3.5-5.1); Protein, Total 7.4 g/dL (6.4-8.2); Troponin High Sensitivity 5.8 pg/mL (<58.9)
[2022-06-02] MEDS ORDERED: NIFEDIPINE XL 30 MG TABLET PO ONE (15:00)
[2022-06-02] MEDS: HYDRALAZINE HCL 10 MG TABLET PO SCH ×2 (15:08→21:19)
[2022-06-02 21:19] LABS: Uric Acid 8.1 mg/dL (3.5-7.2)
[2022-06-02] MEDS: carvediloL 25 MG TAB PO SCH (21:19)
--- NOTE | 2022-06-02 22:47 | HP ---
Date of Admission: 06/02/2022 Chief Complaint: Abnormal blood test. History Of Present Illness: This is a 67-year-old very pleasant male patient who recently started to see me and he has a longstanding history of uncontrolled hypertension. His initial office visit was on May 03, 2022 and at that time, we started him on losartan/HCTZ 50/12.5 mg 1 tablet daily for blood pressure control as his blood pressure was still extremely elevated at office. On May 12, 2022 blood work showed creatinine of 1.9, which is his baseline because of chronic kidney disease. I saw him again on May 17, 2022 for followup and his blood pressure was still elevated and he had lot of leg swelling, so during that visit, we reduced his nifedipine from 60 mg 2 times a day to 60 mg once a day and increase his losartan/HCTZ to 1 tablet 2 times a day and he had blood work done on 05/31/2022 and that showed creatinine of 4.09. The patient was contacted yesterday evening with this lab results and was asked to come see me today and was admitted to the hospital with this acute kidn ey injury. The patient denies any blood in stool or black stool. Denies any vomiting or diarrhea. No fever. No chills. He does not take any Aleve or Motrin type of medication and does not take any proton pump inhibitor. Today, the patient was evaluated at office and all the details were discussed with him and was admitted to the hospital. Allergies: NO KNOWN ALLERGIES. Medications: Atorvastatin 40 mg daily at bedtime, carvedilol 25 mg 2 times a day, Wixela inhaler 1 p uff 2 times a day, losartan/HCTZ 50/12.5 that he takes 1 tablet 2 times a day, and nifedipine 60 mg 1 tablet daily in morning. Review of Systems: Constitutional: Reduced appetite. Genitourinary: Nocturia. All other systems reviewed and negative. Past Medical History: Significant for stroke, hypertension, COPD, coronary arthrosclerosis, hyperlip idemia, gastroesophageal reflux disease, diverticulosis, chronic kidney disease, benign prostatic hyp ertrophy, and anemia due to chronic kidney disease. The patient had renal artery Doppler done on Apr and it showed normal kidneys and no evidence of renal artery stenosis. His echocardiog nicolas from April 15, 2022 showed normal ejection fraction of 64%, mild mitral and tricuspid regurgita tion, thickened aortic valve, and no aortic stenosis. Past Surgical History: Negative. Family History: Mother had aortic aneurysm, hypertension, and hyperlipidemia. Sister with hypertens ion and hyperlipidemia. Social History: Positive for smoking. Use of alcohol negative. Physical Examination: Vital Signs: Today blood pressure was 160/100, pulse 81, temperature 97.5, respiratory rate 16, weig ht 164.2 pounds, height 66 inches. General: Awake, alert, oriented, not in distress. HEENT: Head atraumatic, normocephalic. Conjunctivae nonerythematous. Sclerae white. Mouth, no thr ush or edema noted. Ears/Nose, no mass, lesion, discharge noted. Neck: Supple. No JVD, lymph nodes, bruit, thyromegaly noted. Lungs: Bilateral good equal air entry. Clear to auscultation. No rhonchi. No rales. Heart: Normal heart sounds, no murmur or gallop. Abdomen: Soft, bowel sounds normal. No guarding, rigidity, tenderness, mass, hepatosplenomegaly, dis tention, or bruit noted. Extremities: No leg edema. No calf tenderness. Skin: No rash, ulcer, cellulitis. Lymphatics: No lymph node enlargement in neck, supraclavicular, infraclavicular region. Neuro: No focal neurological deficit. Chest: Unremarkable. External Genitalia: Deferred. Rectal: Deferred. Laboratory Data: Serum creatinine was 1.90 on May 12, 2022 and on May 31, 2022 sodium was 1 37, potassium 5, chloride 102, bicarb 24, BUN 67, creatinine 4.09, and glucose 94. Liver function te sts unremarkable. Impression: 1.Acute kidney injury. 2.Hypertension. 3.Hyperlipidemia. 4.Coronary atherosclerosis. 5.Chronic obstructive pulmonary disease. 6.Stroke. 7.Gastroesophageal reflux disease. 8.Benign prostatic hypertrophy. 9.Anemia due to chronic kidney disease. Plan: Admit the patient to hospital for further evaluation and management of this problem. The [facility] is appropriate for inpatient and is expected to spend 2 midnights in hospital. For hypertension, we will go ahead and continue his carvedilol 25 mg 2 times a day and nifedipine 60 mg daily. [facility] [place] has not taken any of his blood pressure medications this morning. We will not give any losarta n/HCTZ. Even though the patient had normal renal artery Doppler, unfortunately his creatinine has go ne up since we started him on losartan/HCTZ, so we will not use that medication anymore and we will g o ahead and start IV fluid hydration. Monitor electrolyte and renal function closely. Consult nephr ologist and I will go ahead and order renal ultrasound on him. For hyperlipidemia, we will start him on his atorvastatin per order. For his COPD problem, we will order his inhaler per order. Details of plan of treatment discussed with the patient. I will start him on hydralazine 10 mg 2 times a day and monitor blood work and if necessary, adjust antihypertensive medication per order. DVT prophyla xis will be given using heparin. ENRIQUE/MODL Voice ID: [id number]
[2022-06-03] MEDS: NA CHLORIDE 0.9% 1,000 ML IV SCH ×3 (01:21→20:54)
[2022-06-03 07:33] LABS: UR PROTEIN 28.7 mg/dL (<11.9); Urine Protein/Creatinine Ratio 0.3 ratio (<0.15)
[2022-06-03 08:41] LABS: Potassium 4.6 mmol/L (3.5-5.1)
[2022-06-03] MEDS: HYDRALAZINE HCL 10 MG TABLET PO SCH ×2 (09:15→20:53)
[2022-06-03] MEDS: carvediloL 25 MG TAB PO SCH ×2 (09:15→20:53)
[2022-06-03] MEDS: NIFEDIPINE XL 60 MG TABLET PO SCH (09:16)
[2022-06-03] MEDS ORDERED: ACETAMINOPHEN 500 MG TAB PO PRN (16:52)
--- NOTE | 2022-06-03 16:59 | PN ---
Date of Progress Note: 06/03/2022 Subjective: The patient was seen this morning for followup. He was lying in bed. Not in distress. N o new complaints or problems reported. Denies any chest pain, shortness of breath. No nausea, vomit ing, diarrhea. Physical Examination: Vital signs: Reviewed. This morning, blood pressure was 168/86, pulse rate 81. HEENT: Examination unremarkable. Lungs: Clear to auscultation. Heart: Sounds normal. Abdomen: Soft. Bowel sounds normal. No guarding, rigidity, tenderness, distention. Extremities: No leg edema. Impression: 1.Acute kidney injury. 2.Hypertension. 3.Hyperlipidemia. 4.Anemia due to chronic kidney disease. Plan: We will go ahead and continue current carvedilol 25 mg 2 times a day and nifedipine 60 mg ming y. We started him on hydralazine 10 mg 2 times a day yesterday. He has tolerated that very well and we will go ahead and increase the dose to 3 times a day. The patient's blood work from today shows improvement in renal function. His creatinine is 2.3 today, yesterday it was 2.7. We will continue current IV fluid hydration, repeat blood work tomorrow morning and needs to discharge him to go home tomorrow depending on his blood work and his overall condition. Details and plan of treatment discus sed with the patient. The patient's blood pressure at home had dropped down with systolic blood pres sure in the range of 100 prior to outpatient blood work which was done on 05/31/2022, so we do not kn ow if that low blood pressure that the patient had from time to time at home contributed or caused th is acute kidney injury or it was losartan/HCTZ, which was a new medication for him or combination of both, but in any case, we will not use losartan/HCTZ at this time and all these details were discusse d with the patient. Renal ultrasound was unremarkable except left kidney appears smaller than right kidney, and appears to be a chronic change, and this was also noted when he had an ultrasound done an d a renal artery Doppler done in April, and his renal artery Doppler at that time did not show any evidence of any stenotic lesion. ENRIQUE/MODL Voice ID: [id number] Report ID: [id number]
[2022-06-03 18:01] LABS: SARS-COV-2 RT PCR NEGATIVE (NEGATIVE)
[2022-06-03 18:15] LABS: Specific Gravity 1.015 (1.005-1.030); Urine Bacteria None Seen /HPF (<20); Urine Bilirubin NEGATIVE (Negative); Urine Blood Negative (Negative); Urine Clarity Clear (Clear); Urine Color Colorless (Yellow); Urine Glucose TRACE (Negative); Urine Mucus Slight /HPF (None Seen); Urine Protein TRACE (Negative); Urine RBC <5 /HPF (None Seen); Urine Urobilinogen Normal (Normal)
--- NOTE | 2022-06-03 19:16 | RAD REPORT ---
EXAM DESCRIPTION: Killian Garcia And Malia (2 Views)06/03/2022 7:04 pm CLINICAL HISTORY: fever COMPARISON: May 2022 FINDINGS: The lungs appear clear of acute infiltrate. The heart is normal size. Aorta is tortuous IMPRESSION: No acute abnormalities displayed
[2022-06-03] MEDS ORDERED: ATORVASTATIN 40 MG TAB PO SCH (21:00)
--- NOTE | 2022-06-03 22:49 | CON ---
Date of Consultation: 06/03/2022 History Of Present Illness: The patient is admitted to the hospital because of uncontrolled hyperten adalgisa. He was found to have gxrav-na-xcmfuvj kidney injury. He remains nonoliguric. Previously, his creatinine baseline was ranging from 1.8 to 1.9. During this admission, creatinine was up to 2.7. The patient has history of longstanding hypertension. He was started on losartan and HCTZ for blood pressure control when he was seen in the office by his primary care physician. On May 12, bloo d work showed creatinine of 1.9 which was consistent with his previous baseline. The patient was com plaining of leg edema, swelling in both legs and nifedipine was decreased from 60 twice a day to once a day and losartan was changed to twice a day. Subsequently, blood work on May 31 revealed cre atinine level of 4.09 and the patient was diagnosed with acute kidney injury. The patient remains no noliguric. Renal function is somewhat improved. Review of Systems: General: The patient denies fever or chills. Eyes: Denies vision changes. Ears, Nose, Mouth, And Throat: Denies sore throat or earache. Respiratory: Denies PND or orthopnea. Cardiovascular: Denies chest pain or palpitations. GI: Denies nausea or vomiting. : Denies dysuria or hematuria. All other systems reviewed and all are negative. Past Medical History: Significant for stroke, hypertension, COPD, coronary atherosclerosis, hyperlip idemia, GERD, diverticulosis, chronic kidney disease stage 3, benign prostatic hypertrophy, and anemi a due to chronic kidney disease. The patient had renal artery Doppler done in April 2022 that show ed normal kidney and no evidence of renal artery stenosis. Echocardiogram on April 15, 2022 showed normal ejection fraction, mild mitral and tricuspid regurgitation, and no aortic stenosis. Family History: Mother had aortic aneurysm, hypertension, and hyperlipidemia. Sister, hypertension and hyperlipidemia. Social History: Denies alcohol. He is a smoker. Physical Examination: General: The patient is awake, alert, follows commands. Eyes: Anicteric sclerae. EOMI. Ears, Nose, Mouth, And Throat: Oral mucosa moist. No pallor. Neck: Supple. No bruits. Lungs: Clear to auscultation bilaterally. No rhonchi. No wheezing. Heart: S1, S2. No pericardial friction or rub. Abdomen: Soft, benign, nontender. Extremities: No edema. No clubbing. No cyanosis. Neurologic: Moving extremities. Cranial nerves intact. Laboratory Data: Creatinine 1.9, sodium 137, potassium 5.0, chloride 102, CO2 24, BUN 67, creatinine 4.09, glucose 94. Impression And Plan: Acute kidney injury, uncontrolled hypertension, hyperlipidemia, coronary artery disease, chronic obstructive pulmonary disease, stroke, gastroesophageal reflux disease, benign pros tatic hypertrophy, and anemia due to chronic kidney disease. The patient is admitted to the hospital because of acute kidney injury. Blood pressure has not been well controlled. The patient is curren tly on carvedilol 25 mg twice a day and nifedipine 60 mg daily. The patient was taken off losartan/H CTZ due to acute kidney injury. The patient will have workup to rule proteinuria and screen for poss ible nephritis. The patient previously had renal Doppler done, which did not show the renal artery s tenosis. Plan is to evaluate renal Doppler if blood pressure continues to be elevated and renal func tion does not improve. The patient may be a candidate for renal biopsy to rule out nephritis. MICHELL/JIMMY Voice ID: [id number] Report ID: [id number]
[2022-06-03 23:26] VITALS: O2SAT 97
[2022-06-04 06:25] LABS: Absolute Lymphocytes (CBC) 2.1 K/uL (0.7-4.9); Hematocrit 28.5 % (39.6-49.0); Lymphocytes % 24.8 % (15.3-44.8); MCV 82.6 fL (80-100); MPV 7.4 fL (7.6-11.3); RBC Red Blood Cell Count 3.45 M/uL (4.33-5.43)
[2022-06-04] MEDS: NA CHLORIDE 0.9% 1,000 ML IV SCH (06:30)
[2022-06-04 06:34] LABS: Potassium 4.5 mmol/L (3.5-5.1)
--- NOTE | 2022-06-04 07:51 | RAD REPORT ---
EXAM DESCRIPTION: US - Renal Ultrasound-Complete - 06/04/2022 6:06 am CLINICAL HISTORY: renal artery doppler , small kidney COMPARISON: Renal Ultrasound-Complete dated 06/02/2022; Stone Protocol dated 04/14/2022; ABDOMINAL EXAM COMPLETE dated 01/02/2014 FINDINGS: The right kidney measures 10.8 cm. Atrophic left kidney measuring 8.4 cm with renal cortic al thinning. Aortic velocity: 83 cm/second Right proximal renal artery: 53 cm/second Right mid renal artery: 68 cm/second Right distal renal artery: 32 cm/second Right renal arcuate artery resistive index: 0.7 Right renal artery / aorta ratio: 0.7 Left proximal renal artery: 56 cm/second Left mid renal artery: 34 cm/second Left distal renal artery: 21 cm/second Left renal arcuate artery resistive index: 0.8 Left renal artery/aorta ratio: 0.7 Normal waveforms demonstrated within the bilateral renal arteries. Unremarkable bladder. IMPRESSION: No evidence of hemodynamically significant stenosis within the bilateral renal arteries. Atrophic left kidney.
[2022-06-04 08:48] VITALS: BP 137/84; TEMP 97.7
[2022-06-04] MEDS: carvediloL 25 MG TAB PO SCH (10:22)
[2022-06-04] MEDS: NIFEDIPINE XL 60 MG TABLET PO SCH (10:23)
[2022-06-04] MEDS: HYDRALAZINE HCL 10 MG TABLET PO SCH (10:23)
--- NOTE | 2022-06-04 11:22 | PN ---
Date of Progress Note: 06/04/2022 Subjective: The patient was admitted with acute kidney injury secondary to ARB and hydrochlorothiazi de. The patient found to have disproportion in the kidney size. Doppler for the acute renal artery was negative. The patient has blood pressure being not controlled on ARB. After discontinuing ARB, kidney function has been improved, and his blood pressure currently controlled on hydralazine, nifedi pine, and beta-margie. The patient feeling well. Physical Examination: Vital Signs: When I saw the patient, blood pressure 137/84, pulse of 74, afebrile. Chest: Clear to auscultation. Heart: S1, S2 regular. Abdomen: Soft, nontender. Could not appreciate any bruit on the renal artery. Extremities: No edema. Neurologic: Alert. No focal. Laboratory Data: Hemoglobin 9.7. Sodium 138, potassium 4.4, bicarb 23, BUN 49, creatinine 2. GFR o f 36. Calcium 8.5. PTH of 58. P/C ratio 0.3. Renal ultrasound, severe disproportion in the kidney size 10.8/8.4. Again, Doppler was negative for stenosis. Current Medications: The patient on atorvastatin, carvedilol 25 b.i.d., hydralazine 10 b.i.d., nifed ipine 60. IV fluid of normal saline. Assessment And Plan: 1.Acute kidney injury secondary to prerenal, superimposed with ARB recovered back to base line with chronic kidney disease stage 3B possible secondary to hypertension. I am going to go ahead and disco ntinue IV fluid. We will continue current medication. I agree with keep holding any ARB or hydrochl orothiazide for the time being and we will follow up. 2.Hypertension. The patient currently controlled on a 3 medication, not max on calcium channel bloc ker, on hydralazine, again blood pressure been controlled. Given the disproportion in the kidney siz e and the incidence of high blood pressure with acute kidney injury on the presence of ARB, the defin ite diagnosis will patient need as outpatient MRA without contrast to evaluate the renal artery and w e will follow up. In the mean time, I am going to send for hormonal workup for the secondary hyperte nsion, and we will follow up. 3.Chronic kidney disease with disproportion in the kidney size as above. I am going to, with the pr esence of the anemia, rule out any light chain disease. I am going to send for serum protein electro phoresis. 4.Anemia of chronic kidney disease with the presence of acute kidney injury and renal failure. I am going to send for anemia workup. I going to send for protein electrophoresis, and we will follow up the patient. The patient cleared from the renal standpoint for discharge planning to follow up. YUDELKA Voice ID: [id number] Report ID: [id number]
--- NOTE | 2022-06-04 12:17 | DS ---
Date of Discharge: 06/04/2022 Disposition: Discharged to go home. Physical Examination: HEENT: Unremarkable. Lungs: Clear to auscultation. Heart: Sounds normal. Abdomen: Soft. Bowel sounds normal. No guarding, rigidity, tenderness, distention. Extremities: No leg edema. Vital Signs: Today, his last vital signs this morning, temperature 97.7, pulse 74, respiratory rate 16, blood pressure 137/84 with oxygen saturation 99% on room air. Laboratory Data: Upon admission, white count 8.7, hemoglobin 10.2, platelets 268. Today, white coun t 8.4, hemoglobin 9.7, platelets 237. Upon admission, sodium 135, potassium 4.5, chloride 107, bicar b 24, BUN 66, creatinine 2.77. Liver function tests unremarkable. Yesterday, BUN 61, creatinine 2.3 7. Today, sodium 138, potassium 4.5, chloride 112, bicarb 23, BUN 49, creatinine 2.0, glucose 101. Upon admission, COVID-19 test was negative yesterday. We repeated COVID-19 test along with influenza A and B test, and it came back negative. His urinalysis was normal from yesterday. Chest x-ray yes terday did not show any acute cardiopulmonary changes. Renal ultrasound upon admission was unremarka ble except atrophic left kidney, which appears to be chronic finding according to radiologist, and ye , renal artery Doppler was done which came back negative. No evidence of any renal artery levar nosis. Hospital Course: This is a 67-year-old very pleasant male patient who was admitted to the hospital w ith abnormal blood test showing his creatinine of 4.09 and this was done on 05/31/2022. The patient was contacted with this abnormal test results and arrangements were made for him to be admitted to [facility], and he was admitted for this acute kidney injury problem. IV fluid was started on outpat ient basis over the last 2 weeks or so. We started him on losartan/HCTZ and this particular medicati on was discontinued. He does not have any evidence of renal artery stenosis. At this point, underly ing reason for his acute kidney injury, we are not 100% sure, but it could be because his blood press ure had dropped at home. It was around 100 systolic whether that contributed to his acute kidney inj ury or not which is possible and other possibilities if losartan/HCTZ played any role in any case. H is losartan/HCTZ was discontinued and during this hospitalization, rest of his home medications were given to him along with new blood pressure medication hydralazine 10 mg 2 times a day was started. N ephrology consultation was requested and today, the patient was discharged to go home in stable and i mproved condition with following discharge medications and instructions, and I have personally given him a copy of discharge instructions and explained it to him as well myself when I saw him today at [facility]. Yesterday, nurse contacted me, informed me that the patient had low-grade fever of 100. 2 degrees Fahrenheit and that is why we did urinalysis, chest x-ray, influenza A and B, and COVID-19 test and all these came back negative. After this episode of low-grade fever, patient has not had an y more temperature. Today when I saw him, he denies any complaints or any symptoms indicating any in fection and informed me that yesterday when nurse checked the temperature that showed low-grade fever , he was completely covered up with the blankets and he thinks that might be the reason for the low-g rade fever, but in any case, he has not shown any more temperature spikes since that 1 episode yester day. Final Diagnoses: 1.Acute kidney injury. 2.Hypertension. 3.Hyperlipidemia. 4.Coronary atherosclerosis. 5.Chronic obstructive pulmonary disease. 6.Stroke. 7.Gastroesophageal reflux disease. 8.Benign prostatic hypertrophy. 9.Anemia due to chronic kidney disease. Discharge Medications And Instructions: 1.Continue all prior home medications as below which are atorvastatin 40 mg daily at bedtime, carved ilol 25 mg 2 times a day, Wixela inhaler 1 puff 3 times a day and nifedipine 60 mg daily in morning. 2.Stop losartan/HCTZ. 3.Start hydralazine 10 mg, take 1 tablet by mouth 2 times a day. 4.Make sure to drink 50-60 ounces of water daily. 5.Do not take any Aleve or Motrin type of medication. 6.Do not take any Prilosec or Nexium type of medications. 7.Follow up at my office on 06/07/2022 and patient to bring his home blood pressure readings and rosanna wilburn. ENRIQUE/MODL Voice ID: [id number] Report ID: [id number]
== END 2022-06-04 11:30 | disposition home or self-care (01) | DRG 684 ==
LOC: 2ND 11:53
PROVIDERS: ADMIT Internal Medicine; ATTEND Internal Medicine
DX: N17.9 Acute kidney failure, unspecified (principal); I12.9 Hypertensive chronic kidney disease with stage 1 through stage 4 chronic kidney disease, or unspecified chronic kidney disease; N18.32 Chronic kidney disease, stage 3b; D63.1 Anemia in chronic kidney disease; N26.1 Atrophy of kidney (terminal); R50.9 Fever, unspecified; E78.5 Hyperlipidemia, unspecified; I25.10 Atherosclerotic heart disease of native coronary artery without angina pectoris; J44.9 Chronic obstructive pulmonary disease, unspecified; K21.9 Gastro-esophageal reflux disease without esophagitis; N40.0 Benign prostatic hyperplasia without lower urinary tract symptoms; K57.90 Diverticulosis of intestine, part unspecified, without perforation or abscess without bleeding; I34.0 Nonrheumatic mitral (valve) insufficiency; I07.1 Rheumatic tricuspid insufficiency; F17.200 Nicotine dependence, unspecified, uncomplicated; Z86.73 Personal history of transient ischemic attack (TIA), and cerebral infarction without residual deficits; Z20.822 Contact with and (suspected) exposure to COVID-19; Z82.49 Family history of ischemic heart disease and other diseases of the circulatory system
CPT/HCPCS: 0240U; 36415; 71046; 76770; 80048; 80053; 81001; 82088; 82533; 82550; 82570; 83735; 83970; 84156; 84484; 84550; 85025; 87811; J7030

== ENCOUNTER 2022-09-17 21:41 | Inpatient (IN) | payer OTHER ==
[2022-09-17 22:27] LABS: Absolute Lymphocytes (CBC) 1.8 K/uL (0.7-4.9); Hematocrit 35.4 % (39.6-49.0); Lymphocytes % 20.1 % (15.3-44.8); MCV 77.9 fL (80-100); MPV 7.2 fL (7.6-11.3); RBC Red Blood Cell Count 4.54 M/uL (4.33-5.43)
[2022-09-17 22:40] LABS: SARS-CoV-2 Antigen Rapid Res Negative (Negative)
--- NOTE | 2022-09-17 22:46 | RAD REPORT ---
EXAM DESCRIPTION: RAD - Chest Single View - 09/17/2022 10:30 pm CLINICAL HISTORY: CHEST PAIN Chest pain. COMPARISON: Chest Single View dated 06/27/2022; Chest Pa And Lat (2 Views) dated 06/03/2022; Chest Sing le View dated 05/18/2022; Chest Single View dated 04/28/2022 FINDINGS: Portable technique limits examination quality. Mild interstitial pulmonary edema. The heart is mildly enlarged in size. No displaced fractures. IMPRESSION: Mild CHF.
[2022-09-17 22:47] LABS: Albumin 3.6 g/dL (3.4-5.0); Bilirubin Direct 0.2 mg/dL (0-0.2); Bilirubin Indirect, Calculated 0.4 mg/dL (0.2-0.8); Bilirubin Total 0.6 mg/dL (0.2-1.0); Potassium 4.4 mEq/L (3.5-5.1); Protein, Total 8.2 g/dL (6.4-8.2); Troponin High Sensitivity 16.2 pg/mL (<58.9)
[2022-09-18] MEDS ORDERED: NITROGLYCERIN 1 GM PKT TD ONE (00:10)
[2022-09-18] MEDS ORDERED: FUROSEMIDE 20 MG/ 2ML VIAL ONE (00:10)
[2022-09-18] MEDS ORDERED: ASPIRIN 81 MG CHEWABLE TABLET ONE (00:10)
[2022-09-18] MEDS ORDERED: MORPHINE 2 MG/ML SYR ONE (00:24)
[2022-09-18] MEDS ORDERED: ONDANSETRON 4 MG/2 ML VIAL ONE (00:24)
--- NOTE | 2022-09-18 01:00 | ER ---
Nurse's Notes [facility] Name: Lam Schroeder Age: 67 yrs Sex: Male : 1955 Arrival Date: 09/17/2022 Time: 21:41 Bed 13 Private MD: Diagnosis: Acute diastolic heart failure with exacerbation, acute on chronic renal insufficiency, hypoxemia, acute respiratory failure Presentation: 09/17 22:01 Chief complaint: Patient states: "I feel like I can't catch my breath". Coronavirus as6 screen: At this time, the client does not indicate any symptoms associated with coronavirus-19. Ebola Screen: No symptoms or risks identified at this time. Initial Sepsis Screen: Does the patient meet any 2 criteria? No. Patient's initial sepsis screen is negative. Does the patient have a suspected source of infection? No. Patient's initial sepsis screen is negative. Risk Assessment: Do you want to hurt yourself or someone else? Patient reports no desire to harm self or others. Onset of symptoms was September 17, 2022. 22:01 Method Of Arrival: Ambulatory as6 22:01 Acuity: ANI 3 as6 Triage Assessment: 09/18 00:11 General: Appears uncomfortable, Behavior is cooperative, anxious. Respiratory: Reports aa9 shortness of breath the patient has mild shortness of breath. 01:28 Respiratory: Onset: The symptoms/episode began/occurred this morning. aa9 01:28 Pain: Denies pain. Neuro: Level of Consciousness is obeys commands, Oriented to person, aa9 place, time, situation. Cardiovascular: Patient's skin is warm and dry. Derm: Skin is intact, Skin is pale. Historical: - Allergies: 09/17 22:02 Ephedrine Analogues; as6 - PMHx: 22:02 Hypertension; CKD; as6 - PSHx: 22:02 None; as6 - Immunization history:: Client reports having NOT received the Covid vaccine. - Social history:: Smoking status: Patient reports the use of cigarette tobacco products, smokes one pack cigarettes per day. Screenin:20 Abuse screen: Denies threats or abuse. Denies injuries from another. Tuberculosis aa9 screening: No symptoms or risk factors identified. 09/18 00:11 [facility] ED Fall Risk Assessment (Adult) History of falling in the last 3 months, aa9 including since admission No falls in past 3 months (0 pts) Confusion or Disorientation No (0 pts) Intoxicated or Sedated No (0 pts) Impaired Gait No (0 pts) Mobility Assist Device Used No (0 pt) Altered Elimination No (0 pt) Score/Fall Risk Level 0 - 2 = Low Risk Oriented to surroundings, Maintained a safe environment, Educated pt \\T\\ family on fall prevention, incl call for assistance when getting out of bed. Nutritional screening: No deficits noted. Assessment: 09/17 22:00 General: oxygen saturation at 86 on room air, placed pt on 3 L via NC oxygen saturation aa9 increased to 95 . Neuro: Level of Consciousness is awake, alert, obeys commands, Oriented to person, place, time, situation. Cardiovascular: Patient's skin is warm and dry. Respiratory: Airway is patent Respiratory effort is even, unlabored. Derm: Skin is intact, is healthy with good turgor, Skin is pale. 22:44 Reassessment: Patient appears in no apparent distress at this time. Patient and/or aa9 family updated on plan of care and expected duration. Pain level reassessed. Patient is alert, oriented x 3, equal unlabored respirations, skin warm/dry/pink. 22:47 Reassessment: CT at bedside. aa9 09/18 00:39 Reassessment: RT at bedside with BiPAP. Cardiovascular: Rhythm is sinus tachycardia. aa9 01:28 Reassessment: Patient appears in no apparent distress at this time. Patient and/or aa9 family updated on plan of care and expected duration. Pain level reassessed. Patient is alert, oriented x 3, equal unlabored respirations, skin warm/dry/pink. 01:44 Reassessment: No changes from previously documented assessment. Patient and/or family aa9 updated on plan of care and expected duration. Pain level reassessed. Patient is alert, oriented x 3, equal unlabored respirations, skin warm/dry/pink. Vital Signs: 09/17 22:01 BP 156 / 82; Pulse 87; Resp 18 S; Temp 99(TE); Pulse Ox 90% on R/A; Weight 72.57 kg; as6 Height 5 ft. 6 in. (R); Pain 0/10; 22:10 BP 131 / 91; Pulse 87; Resp 18; Pulse Ox 94% on 3 lpm NC; aa9 22:45 BP 134 / 82; Pulse 112; Resp 19; Pulse Ox 90% on 5 lpm NC; aa9 23:30 BP 127 / 71; Pulse 106; Resp 22 S; Pulse Ox 90% on 5 lpm NC; aa9 23:45 BP 118 / 70; Pulse 99; Resp 23; Pulse Ox 91% on 15 lpm Non-rebreather mask; aa9 09/18 00:00 BP 157 / 102; Pulse 95; Resp 27 S; Pulse Ox 85% on 5 lpm NC; aa9 00:30 BP 150 / 98; Pulse 96; Resp 23; Pulse Ox 83% on 7 lpm NC; aa9 00:45 BP 149 / 105; Pulse 90; Resp 26; Temp 97.9(O); Pulse Ox 86% on 7 lpm NC; aa9 01:19 BP 149 / 94; Pulse 75; Resp 19; Pulse Ox 94% on BiPAP; aa9 09/17 22:01 Body Mass Index 25.82 (72.57 kg, 167.64 cm) as6 09/17 22:01 Pain Scale: Adult as6 00:00 provider notified aa9 00:30 RT at Bedside aa9 ED Course: 09/17 21:42 Patient arrived in ED. ja2 21:47 Ryan Ashley MD is Attending Physician. sp4 22:02 Triage completed. as6 22:03 Arm band placed on. as6 22:07 Vidya Sheldon, KRISTA is Primary Nurse. aa9 22:21 SARS RAPID Sent. as7 22:21 Influenza Screen (a \\T\\ B) Sent. as7 22:21 Basic Metabolic Panel Sent. as7 22:21 CBC with Diff Sent. as7 22:21 LFT's Sent. as7 22:21 NT PRO-BNP Sent. as7 22:21 Troponin HS Sent. as7 22:22 Inserted saline lock: 20 gauge in right antecubital area, using aseptic technique. as7 Blood collected. 22:23 CRP Sent. 7 22:27 SARS RAPID Sent. as7 22:27 Influenza Screen (a \\T\\ B) Sent. 7 22:27 CRP Sent. as7 22:27 Basic Metabolic Panel Sent. 22:27 CBC with Diff Sent. 22:27 LFT's Sent. as7 22:27 NT PRO-BNP Sent. as7 22:27 Troponin HS Sent. as7 22:27 SARS RAPID Sent. as7 22:27 Influenza Screen (a \\T\\ B) Sent. as7 22:32 XRAY Chest (1 view) In Process Unspecified. EDMS 23:10 CT Chest Wo Con In Process Unspecified. EDMS 06 00:12 Patient has correct armband on for positive identification. Bed in low position. Call aa9 light in reach. Side rails up X2. Client placed on continuous cardiac and pulse oximetry monitoring. NIBP monitoring applied. 00:59 Braulio Buckley MD is Hospitalizing Provider. sp4 01:27 No provider procedures requiring assistance completed. Patient admitted, IV remains in aa9 place. 01:29 Blood Culture Adult (2) Sent. as7 01:37 Inserted saline lock: 20 gauge in left antecubital area, using aseptic technique. Blood as7 collected. Administered Medications: 00:07 Drug: Furosemide IVP 20 mg Route: IVP; Site: right antecubital; aa9 01:35 Follow up: Response: No adverse reaction aa9 00:07 Drug: Nitroglycerin Transdermal Ointment 2 % 1 inches Route: Transdermal; Site: aa9 anterior chest wall; 00:07 Drug: Aspirin PO Chewable Tablet 324 mg Route: PO; aa9 01:35 Follow up: Response: No adverse reaction aa9 00:23 Drug: morphine IVP or IV 2 mg Route: IVP; Infused Over: 4 mins; Site: right antecubital;aa9 01:35 Follow up: Response: No adverse reaction aa9 00:23 Drug: Ondansetron IVP 4 mg Route: IVP; Site: right antecubital; aa9 01:35 Follow up: Response: No adverse reaction aa9 01:35 Drug: Rocephin - Rocephin (cefTRIAXone) IVPB 1 grams Route: IVPB; Infused Over: 30 aa9 mins; Site: left antecubital; Medication: 01:27 VIS not applicable for this client. aa9 Outcome: 00:59 Decision to Hospitalize by Provider. sp4 01:27 Admitted to Tele aa9 01:27 Condition: stable 01:27 Instructed on the need for admit. 01:46 Admitted to Tele accompanied by tech, family with patient, room 401, with oxygen, with aa9 chart, Report called to BETZY 01:47 Patient left the ED. aa9 Signatures: Dispatcher [employer] EDMS Rashmi Tsai ja2 Nick Le RN RN as6 Vidya Sheldon RN RN aa9 Maria Del Carmen Spencer as7 Ryan Ashley MD MD sp4 Corrections: (The following items were deleted from the chart) 00:38 00:00 BP 157 / 102; Pulse 95bpm; Resp 16bpm; Spontaneous; Pulse Ox 88% 5 lpm Nasal aa9 Cannula; aa9 00:38 09/17 23:45 BP 118 / 70; Pulse 99bpm; Resp 20bpm; Pulse Ox 96% 02 15lpm Non-rebreather aa9 mask; aa9 09/18 00:38 09/17 23:30 BP 127 / 71; Pulse 106bpm; Resp 19bpm; Spontaneous; Pulse Ox 97% 02 15lpm aa9 Non-rebreather mask; aa9
--- NOTE | 2022-09-18 01:00 | EDPHYS ---
Physician Documentation [facility] Name: Lam Schroeder Age: 67 yrs Sex: Male : 1955 Arrival Date: 09/17/2022 Time: 21:41 Bed 13 Private MD: ED Physician Ryan Ashley HPI: 09/17 21:47 This 67 yrs old Male presents to ER via Unassigned with complaints of sp4 Shortness Of Breath. 09/18 00:01 67-year-old male with history of uncontrolled hypertension, chronic kidney disease, on sp4 losartan hydrochlorothiazide, history of chronic tobacco use for the past 43 years, tension of the Dr. Buckley presents with 3 days of worsening dyspnea associated with dyspnea on exertion, orthopnea, cough, and feeling unwell overall. Patient denied chest pains. Patient was admitted here on 0 06/02/2022 HPI describes history of stroke, hypertension, COPD, coronary atherosclerosis, hyperlipidemia, GERD, diverticulosis, chronic kidney disease, BPH, anemia of chronic disease. Echocardiogram of 04/15/2022 revealed ejection fraction of 64%. Mitral tricuspid regurgitation, and thickened aortic valve. Patient was admitted for acute kidney injury, hypertension, hyperlipidemia, chronic obstructive pulmonary disease, stroke, gastroesophageal reflux disease, and anemia secondary to chronic kidney disease.. His creatinine was 2.77. Creatinine was noted up to 4.09 he was initiated on hydralazine 10 mg twice a day. Nephrology consult was obtained.. Historical: - Allergies: 09/17 22:02 Ephedrine Analogues; as6 - PMHx: 22:02 Hypertension; CKD; as6 - PSHx: 22:02 None; as6 - Immunization history:: Client reports having NOT received the Covid vaccine. - Social history:: Smoking status: Patient reports the use of cigarette tobacco products, smokes one pack cigarettes per day. ROS: 09/18 00:52 Constitutional: Negative for fever, chills, and weight loss, Eyes: Negative for injury, sp4 pain, redness, and discharge, ENT: Negative for injury, pain, and discharge, Neck: Negative for injury, pain, and swelling, Cardiovascular: Negative for chest pain, palpitations, and edema, Respiratory: Negative for wheezing, and pleuritic chest pain, positive for shortness of breath, dyspnea on exertion, orthopnea, and cough Abdomen/GI: Negative for abdominal pain, nausea, vomiting, diarrhea, and constipation, Back: Negative for injury and pain, : Negative for injury, bleeding, discharge, and swelling, MS/Extremity: Negative for injury and deformity, Skin: Negative for injury, rash, and discoloration, Neuro: Negative for headache, weakness, numbness, tingling, and seizure, Psych: Negative for depression, anxiety, Allergy/Immunology: Negative for hives, rash, and allergies Endocrine: Negative for neck swelling, polydipsia, polyuria, polyphagia, and weight changes Hematologic/Lymphatic: Negative for swollen nodes, abnormal bleeding, and unusual bruising Exam: 09/17 22:51 ECG was reviewed by the Attending Physician. A he is normal sinus rhythm, normal EKG, sp4 EKG time 2225, 81 bpm, no ectopy, no ST elevation or depression. 09/18 00:52 Constitutional: This is a well developed, well nourished patient who is awake, alert, sp4 generalized pallor, ill-appearing male. Head/Face: Normocephalic, atraumatic. Eyes: Pupils equal round and reactive to light, extra-ocular motions intact. Lids and lashes normal. Conjunctiva and sclera are not injected. Cornea within normal limits. Periorbital areas with no swelling, redness, or edema. ENT: Nares patent. No nasal discharge, no septal abnormalities noted. Tympanic membranes are normal and external auditory canals are clear. Oropharynx with no redness, swelling, or masses, exudates, or evidence of obstruction, uvula midline. Mucous membranes moist. Neck: Trachea midline, no thyromegaly or masses palpated, and no cervical lymphadenopathy. Supple, full range of motion without nuchal rigidity, or vertebral point tenderness. Chest/axilla: Normal chest wall appearance and motion. Nontender with no deformity. No lesions are appreciated. Cardiovascular: Regular rate and rhythm with a normal S1 and S2. No gallops, murmurs, or rubs. Positive jugular venous distention, Respiratory: Lungs have equal breath sounds bilaterally, clear to auscultation and percussion. No rales, rhonchi or wheezes noted. Positive crackles, positive tachypnea, positive increased work of breathing Abdomen/GI: Soft, non-tender, with normal bowel sounds. No distension or tympany. No guarding or rebound. No evidence of tenderness throughout. Back: No spinal tenderness. No costovertebral tenderness. Skin: Warm, dry with normal turgor. Normal color with no rashes, no lesions, and no evidence of cellulitis. MS/ Extremity: Pulses equal, no cyanosis. Neurovascular intact. Full, normal range of motion. Neuro: Awake and alert, GCS 15, oriented to person, place, time, and situation. Cranial nerves II-XII grossly intact. Motor strength 5/5 in all extremities. Sensory grossly intact. Psych: Awake, alert, with orientation to person, place and time. Behavior, mood, and affect are within normal limits Vital Signs: 09/17 22:01 BP 156 / 82; Pulse 87; Resp 18 S; Temp 99(TE); Pulse Ox 90% on R/A; Weight 72.57 kg; as6 Height 5 ft. 6 in. (R); Pain 0/10; 22:10 BP 131 / 91; Pulse 87; Resp 18; Pulse Ox 94% on 3 lpm NC; aa9 22:45 BP 134 / 82; Pulse 112; Resp 19; Pulse Ox 90% on 5 lpm NC; aa9 23:30 BP 127 / 71; Pulse 106; Resp 22 S; Pulse Ox 90% on 5 lpm NC; aa9 23:45 BP 118 / 70; Pulse 99; Resp 23; Pulse Ox 91% on 15 lpm Non-rebreather mask; aa9 09/18 00:00 BP 157 / 102; Pulse 95; Resp 27 S; Pulse Ox 85% on 5 lpm NC; aa9 00:30 BP 150 / 98; Pulse 96; Resp 23; Pulse Ox 83% on 7 lpm NC; aa9 00:45 BP 149 / 105; Pulse 90; Resp 26; Temp 97.9(O); Pulse Ox 86% on 7 lpm NC; aa9 01:19 BP 149 / 94; Pulse 75; Resp 19; Pulse Ox 94% on BiPAP; aa9 09/17 22:01 Body Mass Index 25.82 (72.57 kg, 167.64 cm) as6 09/17 22:01 Pain Scale: Adult as6 00:00 provider notified aa9 00:30 RT at Bedside aa9 MDM: 09/17 21:48 Patient medically screened. sp4 23:54 ED course: Chest X ray FINDINGS: Portable technique limits examination quality. Mild sp4 interstitial pulmonary edema. The heart is mildly enlarged in size. No displaced fractures. IMPRESSION: Mild CHF. 09/18 00:52 Differential diagnosis: Anemia Anxiety Reaction Bronchitis CHF exacerbation, Chronic sp4 Obstructive Pulmonary Disease Myocardial Infarction pneumonia, Pneumothorax. Antibiotic administration: Not indicated. Data reviewed: vital signs, nurses notes, old medical records, lab test result(s), EKG, radiologic studies, CT scan, plain films. ED course: EXAM: CT Chest Without Intravenous Contrast CLINICAL HISTORY: The patient is 67 years old and is Male; COUGH TECHNIQUE: Axial computed tomography images of the chest without intravenous contrast. Sagittal and coronal reformatted images were created and reviewed. This CT exam was performed using one or more of the following dose reduction techniques: automated exposure control, adjustment of the mA and/or kV according to patient size, and/or use of iterative reconstruction technique. COMPARISON: No relevant prior studies available. FINDINGS: LUNGS: Dependent densities in the lung bases along with consolidation in the right lower lobe is present. The lungs are otherwise well-inflated. PLEURAL SPACE: Small bilateral pleural effusions are present. No pneumothorax. HEART: No cardiomegaly. No pericardial effusion. BONES/JOINTS: No acute fracture. SOFT TISSUES: The soft tissues are normal. VASCULATURE: Aneurysmal dilatation of the descending thoracic aorta measuring approximately 4.8 x 3.7 cm is present. LYMPH NODES: Multiple prominent mediastinal lymph nodes are present. KIDNEYS AND URETERS: The left kidney is atrophic. IMPRESSION: 1. Bilateral pleural effusions, right greater than left with associated atelectasis and likely developing infiltrate within the right lower lobe. 2. Aneurysmal dilatation of the descending thoracic aorta. Electronically signed by: Libby Benavidez MD 09/18/2022 12:27 AM CDT . 00:58 ED course: CT and chest x-ray revealed signs of CHF, patient's oxygenation was unstable sp4 and he was started on BiPAP patient warrants admission for cardiology assessment also management of acute congestive heart failure.. 09/17 21:48 Order name: Basic Metabolic Panel; Complete Time: 23:31 sp4 09/17 21:48 Order name: CBC with Diff; Complete Time: 23:31 sp4 09/17 21:48 Order name: LFT's; Complete Time: 23:31 sp4 09/17 21:48 Order name: NT PRO-BNP; Complete Time: 23:31 4 09/17 21:48 Order name: Troponin HS; Complete Time: 23:31 4 09/17 22:01 Order name: Influenza Screen (a \T\ B); Complete Time: 23:31 4 09/17 22:01 Order name: SARS RAPID; Complete Time: 23:31 4 09/17 22:01 Order name: CRP; Complete Time: 23:31 4 09/18 00:27 Order name: ABG 4 09/18 00:58 Order name: Blood Culture Adult (2) 4 09/17 21:48 Order name: XRAY Chest (1 view); Complete Time: 23:31 [facility] 09/17 22:01 Order name: CT Chest Wo Con 4 09/18 00:27 Order name: BIPAP [facility] 09/17 21:48 Order name: EKG; Complete Time: 21:49 [facility] 09/17 21:48 Order name: Cardiac monitoring; Complete Time: 22:27 [facility] 09/17 21:48 Order name: EKG - Nurse/Tech; Complete Time: 22:27 4 09/17 21:48 Order name: IV Saline Lock; Complete Time: 22:21 4 09/17 21:48 Order name: Labs collected and sent; Complete Time: 22:21 4 09/17 21:48 Order name: O2 Per Protocol; Complete Time: 22:21 4 09/17 21:48 Order name: O2 Sat Monitoring; Complete Time: 22:21 sp4 EC/17 22:51 Rate is 81 beats/min. Rhythm is regular, Normal Sinus Rhythm. QRS [place] is Normal. VT sp4 interval is normal. QRS interval is normal. QT interval is normal. T waves are Normal. No ST changes noted. Clinical impression: Normal ECG. Interpreted by me. Administered Medications: 09/18 00:07 Drug: Furosemide IVP 20 mg Route: IVP; Site: right antecubital; aa9 01:35 Follow up: Response: No adverse reaction aa9 00:07 Drug: Nitroglycerin Transdermal Ointment 2 % 1 inches Route: Transdermal; Site: aa9 anterior chest wall; 00:07 Drug: Aspirin PO Chewable Tablet 324 mg Route: PO; aa9 01:35 Follow up: Response: No adverse reaction 00:23 Drug: morphine IVP or IV 2 mg Route: IVP; Infused Over: 4 mins; Site: right antecubital;aa9 01:35 Follow up: Response: No adverse reaction 00:23 Drug: Ondansetron IVP 4 mg Route: IVP; Site: right antecubital; aa9 01:35 Follow up: Response: No adverse reaction 01:35 Drug: Rocephin - Rocephin (cefTRIAXone) IVPB 1 grams Route: IVPB; Infused Over: 30 aa9 mins; Site: left antecubital; Disposition Summary: 09/18/22 00:59 Hospitalization Ordered Hospitalization Status: Inpatient Admission sp4 Provider: Braulio Buckley4 Location: Telemetry/MedSurg (Inpatient) sp4 Condition: Serious sp4 Problem: new sp4 Symptoms: have improved sp4 Bed/Room Type: Standard sp4 Room Assignment: 401(09/18/22 01:25) mw Diagnosis - Acute diastolic heart failure with exacerbation, acute on chronic renal sp4 insufficiency, hypoxemia, acute respiratory failure Forms: - Medication Reconciliation Form sp4 - SBAR form sp4 Signatures: Dispatcher [employer] EDCaty Og RN RN mw Slawson, Ashby, RN RN as6 Vidya Sheldon RN RN [id number] Ryan Ashley MD MD sp4 Corrections: (The following items were deleted from the chart) 01:25 00:59 sp4 mw
[2022-09-18] MEDS ORDERED: NA CHLORIDE 0.9% 50 ML ONE (01:21)
[2022-09-18] MEDS ORDERED: CEFTRIAXONE 1000 MG/VIAL ONE (01:21)
[2022-09-18] MEDS ORDERED: ACETAMINOPHEN 500 MG TAB PO PRN (01:43)
[2022-09-18] MEDS ORDERED: ALBUTEROL 2.5 MG/3 ML NEB SOL NEB PRN ×2 (01:43→10:00)
[2022-09-18] MEDS ORDERED: ONDANSETRON 4 MG/2 ML VIAL IV PRN (01:43)
[2022-09-18] MEDS ORDERED: HEPARIN 5000 UNIT/ML 1 ML VIAL SQ ONE (09:08)
[2022-09-18] MEDS: HYDRALAZINE HCL 25 MG TABLET PO SCH ×2 (09:45→23:05)
[2022-09-18] MEDS: carvediloL 25 MG TAB PO SCH ×2 (09:45→23:04)
[2022-09-18] MEDS: NIFEDIPINE XL 30 MG TABLET PO SCH (09:46)
[2022-09-18] MEDS: cloNIDine HCL 0.1 MG TAB PO SCH ×2 (09:46→23:05)
[2022-09-18] MEDS ORDERED: FUROSEMIDE 40 MG/4 ML VIAL IV ONE (09:59)
--- NOTE | 2022-09-18 11:11 | HP ---
Date of Admission: 09/18/2022 Chief Complaint: Shortness of breath and not feeling good. History Of Present Illness: This is a 67-year-old male patient, who came into emergency room with above-mentioned complaints. The patient says that day before yesterday which is on Monday, he just did not feel good, but no other specific complaints. Did not have any chest pain or shortness of breath. Monday night and Monday early childhood, he woke up from sleep because of shortness of breath and reported that his breathing was better when he was sitting upright versus lying down. All day yesterday, he did not necessarily feel good, but no other specific complaints and reported that every time he tried to lie down, he was having more shortness of breath, so yesterday evening, he came into emergency room. After he was evaluated, he was admitted to the hospital with congestive heart failure problem. The patient denies any chest pain. No fever, chills, nausea, vomiting, diarrhea. Allergies: NO KNOWN ALLERGIES. Medications: Atorvastatin 40 mg daily at bedtime, carvedilol 25 mg 2 times a day, Wixela inhaler 1 puff 2 times a day, nifedipine 30 mg daily, hydralazine 50 mg, 1 tablet by mouth 2 times a day, Clonidine 0.1 mg two times a day. Review of Systems: Cardiovascular: As mentioned above. Respiratory: As mentioned above. All other systems reviewed and negative. Past Medical History: Significant for hypertension, hyperlipidemia, stroke, COPD, coronary atherosclerosis, gastroesophageal reflux disease, diverticulosis, chronic kidney disease, benign prostatic hypertrophy, anemia due to chronic kidney disease. The patient had renal artery Doppler done on 04/18/2022 and it showed normal kidneys and no evidence of renal artery stenosis. His echocardiogram from 04/15/2022 showed ejection fraction of 64%, mild mitral and tricuspid regurgitation, thickened aortic valve and no aortic stenosis. Past Surgical History: Negative. Family History: Mother; aortic aneurysm, hypertension, hyperlipidemia. Sister; hypertension, hyperlipidemia. Social History: Positive for smoking. Use of alcohol negative. Physical Examination: Vital Signs: Temperature 98.4, pulse 86, respiratory rate 18, blood pressure 162/88, oxygen saturation 95%. Height 5 feet 6 inches, weight 156 pounds. General: Awake, alert, oriented, not in distress. HEENT: Head atraumatic, normocephalic. Conjunctivae nonerythematous. Sclerae white. Mouth, no thrush or edema noted. Ears/Nose, no mass, lesion, discharge noted. Neck: Supple. No JVD, lymph nodes, bruit, thyromegaly noted. Lungs: Presence of rales noted in lower 1/3 to lower 1/4 of both lung [place]. Not using any accessory muscles of respiration. Heart: Normal heart sounds, no murmur or gallop. Abdomen: Soft, bowel sounds normal. No guarding, rigidity, tenderness, mass, hepatosplenomegaly, distention, or bruit noted. Extremities: No leg edema. No calf tenderness. Skin: No rash, ulcer, cellulitis. Lymphatics: No lymph node enlargement in neck, supraclavicular, infraclavicular region. Neuro: No focal neurological deficit. Chest: Unremarkable. External Genitalia: Deferred. Rectal: Deferred. Laboratory Data: White count 8.9, hemoglobin 11.4, platelets 240. Sodium 135, potassium 4.4, chloride 110, bicarb 20, BUN 46, creatinine 3.52, glucose 112, estimated GFR 18. Liver function tests unremarkable. Troponin 16.2. ProBNP 8953. Chest x-ray shows changes of congestive heart failure. CAT scan of the chest without contrast shows bilateral pleural effusions, greater on the right than the left side with some atelectasis and likely developing infiltrate in the right lower lobe. Clinically, the patient does not have any signs and symptoms of pneumonia. The patient's CAT scan also shows aneurysm of the descending thoracic aorta, which measured 4.8 x 3.7 cm and multiple prominent mediastinal lymph nodes present. Impression: 1. Congestive heart failure. 2. Acute kidney injury. 3. Hypertension. 4. Hyperlipidemia. 5. Coronary atherosclerosis. 6. Chronic obstructive pulmonary disease. 7. Stroke. 8. Gastroesophageal reflux disease. 9. Benign prostatic hypertrophy. 10. Anemia due to chronic kidney disease. Plan: Admit the patient to hospital for further evaluation and management of this problem. The patient is appropriate for inpatient and is expected to spend 2 midnights in hospital. For hypertension, we will continue his antihypertensive medication per order, monitor blood pressure. As if it becomes necessary, consider adjustment on blood pressure medication. For hyperlipidemia, we will continue his statin therapy. Anemia of chronic kidney disease, will not require any intervention except monitoring at this point. For the patient's acute kidney injury and chronic kidney disease, we will consult his hand flesher, Dr. Braun. For congestive heart failure, we will go ahead and give 1 dose of Lasix 40 mg IV and I will re-evaluate him tomorrow. We will get echo with Doppler tomorrow morning and consult Cardiology for this congestive heart failure problem along with his descending thoracic aortic aneurysm and all these findings discussed with the patient and plan of treatment discussed with him. DVT prophylaxis will be given using heparin 5000 units subcutaneous injection every 12 hours. We will repeat blood work tomorrow morning. ENRIQUE/MODRich Voice ID: [id number]
[2022-09-18] MEDS: ATORVASTATIN 40 MG TAB PO SCH (23:04)
[2022-09-18] MEDS: HEPARIN 5000 UNIT/ML 1 ML VIAL SQ SCH (23:07)
[2022-09-19 04:14] VITALS: BMI 25.0
[2022-09-19 07:12] LABS: Magnesium 2.4 mg/dL (1.6-2.4); Potassium 4.3 mEq/L (3.5-5.1)
[2022-09-19] MEDS ORDERED: FUROSEMIDE 40 MG/4 ML VIAL IV ONE (07:49)
[2022-09-19] MEDS: carvediloL 25 MG TAB PO SCH ×2 (08:19→20:43)
[2022-09-19] MEDS: NIFEDIPINE XL 30 MG TABLET PO SCH (08:19)
[2022-09-19] MEDS: cloNIDine HCL 0.1 MG TAB PO SCH ×2 (08:20→20:43)
[2022-09-19] MEDS: HEPARIN 5000 UNIT/ML 1 ML VIAL SQ SCH ×2 (08:20→20:43)
[2022-09-19] MEDS: HYDRALAZINE HCL 25 MG TABLET PO SCH ×2 (08:20→20:42)
[2022-09-19] MEDS: HOME MED 1 EA UNK (Fluticasone Propion/Salmeterol [Wixela 250-50 Inhub] Blst.W.Dev) IH SCH (08:21)
--- NOTE | 2022-09-19 10:40 | RAD REPORT ---
EXAM DESCRIPTION: CT - Thorax Lex Yao - 09/18/2022 2:25 am CLINICAL HISTORY: The patient is 67 years old and is Male; COUGH TECHNIQUE: Axial computed tomography images of the chest without intravenous contrast. Sagittal an d coronal reformatted images were created and reviewed. This CT exam was performed using one or mor e of the following dose reduction techniques: automated exposure control, adjustment of the mA and/ or kV according to patient size, and/or use of iterative reconstruction technique. COMPARISON: No relevant prior studies available. FINDINGS: LUNGS: Dependent densities in the lung bases along with consolidation in the right lower lobe is present. The lungs are otherwise well-inflated. PLEURAL SPACE: Small bilateral pleural effusions are present. No pneumothorax. HEART: No cardiomegaly. No pericardial effusion. BONES/JOINTS: No acute fracture. SOFT TISSUES: The soft tissues are normal. VASCULATURE: Aneurysmal dilatation of the descending thoracic aorta measuring approximately 4.8 x 3.7 cm is present. LYMPH NODES: Multiple prominent mediastinal lymph nodes are present. KIDNEYS AND URETERS: The left kidney is atrophic. IMPRESSION: 1. Bilateral pleural effusions, right greater than left with associated atelectasis an d likely developing infiltrate within the right lower lobe. 2. Aneurysmal dilatation of the descending thoracic aorta. Electronically signed by: Libby Benavidez MD 09/18/2022 12:27 AM CDT Due to temporary technical issues with the PACS/Fluency reporting system, reports are being signed by the in house radiologist without review as a courtesy to ensure prompt reporting. The interpreting r adiologist is fully responsible for the content of the report.
--- NOTE | 2022-09-19 17:52 | EKG ---
Test Date: 2022-09-17 Test Time: 22:25:01 Flexographic Press Helper: MARC MEASUREMENT RESULTS: Intervals: Rate: 81 UT: 152 QRSD: 78 QT: 386 QTc: 448 [place]: P: 68 UT: 152 QRS: 50 T: 19 INTERPRETIVE STATEMENTS: Normal sinus rhythm Normal ECG Compared to ECG 06/27/2022 13:59:54 No significant changes Electronically Signed On 09-19-22 17:49:58 CDT by Esteban Lynch
--- NOTE | 2022-09-19 18:59 | CON ---
Date of Consultation: 09/19/2022 Reason For Consultation: Shortness of breath and heart failure symptoms. History Of Present Illness: A 67-year-old male with a past medical history of hypertension, dyslipid emia, COPD, coronary artery disease, acid reflux, anemia, presented with worsening shortness of breat h and orthopnea, lower extremity edema. He was given 1 dose of Lasix in the emergency room 80 mg, di uresed well on it, and then he was given only 1 dose of Lasix today. Denies having any chest pain, b ut he feels slightly better and his symptoms have improved. Past Medical History: As outlined above in the HPI. Medications: Refer to reconciliation sheet for detailed list. Allergies: REVIEWED. REFER TO THE LIST. Family History: No premature coronary artery disease or cancer. Social History: He does not smoke or drink. Does not use any drugs. Review of Systems: All systems reviewed and they were negative except what mentioned in HPI. Physical Examination: Vital Signs: Reviewed. Head and Neck: Pupils are equal, reactive to light. Intact eye movements. No JVD. No cervical lym phadenopathy. Neck is supple. Thyroid is not enlarged. Lungs: Decreased breathing sounds with faint crackles in the bases. No accessory muscle use. Heart: Regular rate and rhythm. No extra sounds. Abdomen: Soft, nontender. Bowel sounds positive. No organomegaly. No masses or hernia. No rigidi ty or rebound. Extremities: No clubbing or cyanosis. Mild edema is present. Neurologic: Alert, awake, oriented x3. No acute focal deficits appreciated. Investigations: BUN is 57, creatinine is 2.8, hemoglobin 11.4. Assessment And Recommendations: 1.Shortness of breath due to congestive heart failure, likely diastolic heart failure exacerbation. The patient had an echo. He had normal ejection fraction, but grade 2 diastolic dysfunction and als o his right ventricular systolic pressure is between 55 to 60 mmHg. I recommend diuresis with Lasix to be dosed at 80 mg q.12 hours. This should improve his creatinine further as likely his central ve nous pressure is elevated. 2.Acute on chronic renal failure impart likely due to the fluid retention. With IV diuresis, creati nine should continue to improve. I will discuss this further with primary care physician. Also benjamin mmend Nephrology consultation. SR/MODL Voice ID: [id number] Report ID: [id number]
--- NOTE | 2022-09-19 20:08 | PN ---
Date of Progress Note: 09/19/2022 Subjective: The patient was seen this morning for followup. The patient was lying in bed, not in an y distress. Denies any chest pain, shortness of breath this morning. Objective: Vital Signs: Reviewed. HEENT: Unremarkable. Lungs: Bilateral good equal air entry. Minimal basal rales, overall much better than yesterday. No t using any accessory muscles of respiration. Heart: Sounds normal. Abdomen: Soft. Bowel sounds normal. No guarding, rigidity, tenderness, distention. Extremities: No leg edema. Laboratory Data: Sodium 138, potassium 4.3, chloride 111, bicarb 22, BUN 57, creatinine 2.81, glucos e 90. LDL cholesterol 75, HDL 31, total cholesterol 127, triglyceride 107. Impression: 1.Congestive heart failure. 2.Hypertension. 3.Acute kidney injury. 4.Hyperlipidemia. Plan: We will go ahead and give dose of Lasix 40 mg IV x1 dose today. Follow up on echocardiogram. Follow up with managing editor and aquatic laborer. We will repeat blood work tomorrow. I will see him t omorrow for followup. Possible discharge to go home tomorrow depending on his condition. ENRIQUE/MODL Voice ID: [id number] Report ID: [id number]
[2022-09-19] MEDS: ATORVASTATIN 40 MG TAB PO SCH (20:43)
--- NOTE | 2022-09-20 03:54 | CON ---
Date of Consultation: 09/19/2022 Chief Complaint: Acute on chronic kidney injury. History Of Present Illness: The patient is a 67-year-old man with history of chronic kidney disease, pptpaptch-is-wszqeis hypertension, history of acute kidney injury secondary to cardiorenal syndrome and prerenal azotemia. 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 He developed some generalized swelling, lo wer extremity edema. He denied syncope. Denied difficulty with urination. Denies hematuria, dysuri a. Past Medical History: Hypertension; hyperlipidemia; stroke; COPD; coronary artery disease; GERD; div erticulosis; chronic kidney disease, stage 3; benign prostatic hypertrophy; anemia due to chronic kid marybel disease. The patient had renal Doppler done on April 18, 2022, which showed normal kidneys and no evidence of renal artery stenosis. Echocardiogram was done on April 15, 2022, and showed eject ion fraction of 64%. Mild mitral and tricuspid regurgitation, thickened aortic valve, and aortic levar nosis. Past Surgical History: Negative. Family History: Mother: Aortic aneurysm, hypertension, hyperlipidemia. Sister: Hypertension, hype rlipidemia. Social History: Positive for tobacco. Denies alcohol. Review of Systems: General: The patient denies fever, chills. Eyes: Denies vision changes. Ears, Nose, Mouth, and Throat: Denies sore throat or earache. Respiratory: Has shortness of breath and some chest congestion. Denies wheezing. GI: Denies nausea, vomiting. : Denies dysuria or hematuria. All other systems reviewed and all are negative. Physical Examination: General: The patient is awake, alert, follows commands. Eyes: Anicteric sclerae. EOMI. Ears, Nose, Mouth, and Throat: Oral mucosa moist. No pallor. Neck: Supple. No bruits. Lungs: Few rhonchi. Heart: S1, S2. Abdomen: Soft. Extremities: No tenderness. No clubbing. No cyanosis. Lab Work: White count 8.9, hemoglobin 11.4, sodium 135, potassium 4.4, chloride 110, bicarbonate 20, BUN 46, creatinine 3.52, estimated GFR 18. Liver function tests unremarkable. ProBNP 8953. Tropon in 16.2. CT scan of the chest without contrast showed bilateral pleural effusions, greater on the ri ght than left, with some atelectasis and likely developing infiltrate in the lower lobe. Clinically, the patient does not have signs and symptoms of pneumonia. Impression: 1.Congestive heart failure, diastolic dysfunction, fluid overload, acute kidney injury, cardiorenal syndrome, hypertension, hyperlipidemia, coronary artery disease, benign prostatic hypertrophy, anemia due to chronic kidney disease. Patient developed acute kidney injury with fluid overload. Likely, the patient is noncompliant with sodium restriction. The patient has chronic kidney disease, stage 3 . Baseline creatinine level was 1.64 in June 2022 and GFR was 46. Subsequently, on admission on , renal function was deteriorated to GFR of 18, BUN 46, creatinine 3.52, and today, after treatm ent with diuretic was initiated, the creatinine level is 2.81, BUN 57. Plan is to continue diuretic therapy for cardiorenal syndrome. Continue low-sodium diet and plan is to check urinalysis to rule o ut active urinary sediment. Urinalysis will be obtained and urine protein creatinine ratio previousl y was 0.3. 2.History of BPH. The patient denies difficulty with urination. Plan is to check renal ultrasound to rule out any evidence of hydronephrosis. EB/MODL Voice ID: [id number] Report ID: [id number]
[2022-09-20 06:31] LABS: Absolute Lymphocytes (CBC) 1.7 K/uL (0.7-4.9); Hematocrit 32.4 % (39.6-49.0); Lymphocytes % 27.6 % (15.3-44.8); MCV 77.6 fL (80-100); MPV 7.8 fL (7.6-11.3); RBC Red Blood Cell Count 4.18 M/uL (4.33-5.43)
--- NOTE | 2022-09-20 06:50 | ECHO ---
HEIGHT: 5 ft 6 in WEIGHT: 155 lb 0 oz DATE OF STUDY: 09/19/[address]: Braulio Buckley MD 2-DIMENSIONAL: YES M.MODE: YES DOPPLER: YES COLOR FLOW: YES TDS: PORTABLE: YES DEFINITY: BUBBLE STUDY: DIAGNOSIS: CONGESTIVE HEART FAILURE CARDIAC HISTORY: CATHERIZATION: NO SURGERY: NO PROSTHETIC VALVE: NO PACEMAKER: NO MEASUREMENTS (cm) DIASTOLIC (NORMALS) SYSTOLIC (NORMALS) IVSd 1.0 (0.6-1.2) LA Diam 2.8 (1.9-4.0) LVEF 58% LVIDd 3.2 (3.5-5.7) LVIDs 2.2 (2.0-3.5) %FS 29% LVPWd 1.1 (0.6-1.2) Ao Diam 2.3 (2.0-3.7) 2 DIMENSIONAL ASSESSMENT: RIGHT ATRIUM: NORMAL LEFT ATRIUM: NORMAL RIGHT VENTRICLE: NORMAL LEFT VENTRICLE: NORMAL TRICUSPID VALVE: MILD TRICUSPID REGURGITATION MITRAL VALVE: MILD MITRAL REGURGITATION PULMONIC VALVE: NORMAL AORTIC VALVE: NORMAL PERICARDIAL EFFUSION: NONE AORTIC ROOT: NORMAL LEFT VENTRICULAR WALL MOTION: NORMAL DOPPLER/COLOR FLOW: SEE BELOW COMMENTS: 1. NORMAL LEFT VENTRICULAR EJECTION FRACTION 55-60% WITH NORMAL WALL MOTION 2. DIASTOLIC DYSFUNCTION (GRADE III) 3. MILD TRICUSPID REGURGITATION 4. MILD TO MODERATE MITRAL REGURGITATION 5. MODERATE TO SEVERE PULMONARY HYPERTENSION WITH RIGHT VENTRICULAR SYSTOLIC PRESSURE OF 55-60 mmHg TECHNOLOGIST: SORAYA VAZQUEZ
[2022-09-20 06:53] LABS: Magnesium 2.5 mg/dL (1.6-2.4); Potassium 4.3 mEq/L (3.5-5.1)
[2022-09-20 06:54] LABS: Thyroid Stimulating Hormone 4.42 uIU/mL (0.358-3.740)
[2022-09-20] MEDS ORDERED: FUROSEMIDE 40 MG/4 ML VIAL IV ONE ×2 (07:44→20:14)
--- NOTE | 2022-09-20 08:01 | RAD REPORT ---
EXAM DESCRIPTION: US - Renal Ultrasound-Complete - 09/20/2022 5:16 am CLINICAL HISTORY: jimmie on ckd 3 COMPARISON: Renal Ultrasound-Complete dated 06/04/2022; Renal Ultrasound-Complete dated 06/02/2022 TECHNIQUE: Sonographic grayscale and color flow images of the kidneys and bladder were obtained. FINDINGS: Both kidneys are normal in size, shape and echotexture. The right kidney measures 11.5 x 4.8 x 5.1 centimeter. No hydronephrosis, focal mass or perinephric f luid. Small parapelvic right renal cyst, measuring 1.1 centimeter. The left kidney is atrophic, measures 7.2 x 3.7 x 3.3 centimeter. Cortical thinning and increased ech ogenicity, similar or more progressive compared to the prior exam. No hydronephrosis, focal mass or p erinephric fluid. No echogenic calculi. The urinary bladder is without gross abnormality seen. IMPRESSION: Atrophic left renal changes with echogenic and thinned parenchyma suggesting chronic med ical renal disease. Incidentally noted small parapelvic right renal cyst. No other abnormalities.
[2022-09-20] MEDS: HEPARIN 5000 UNIT/ML 1 ML VIAL SQ SCH ×2 (08:04→21:00)
[2022-09-20] MEDS: cloNIDine HCL 0.1 MG TAB PO SCH ×2 (08:05→20:45)
[2022-09-20] MEDS: carvediloL 25 MG TAB PO SCH ×2 (08:05→20:45)
[2022-09-20] MEDS: HYDRALAZINE HCL 25 MG TABLET PO SCH ×2 (08:05→20:45)
[2022-09-20] MEDS: HOME MED 1 EA UNK (Fluticasone Propion/Salmeterol [Wixela 250-50 Inhub] Blst.W.Dev) IH SCH (08:06)
[2022-09-20] MEDS: NIFEDIPINE XL 30 MG TABLET PO SCH (08:06)
[2022-09-20 09:10] LABS: Specific Gravity 1.011 (1.005-1.030); Urine Bacteria None Seen /HPF (<20); Urine Bilirubin NEGATIVE (Negative); Urine Blood Negative (Negative); Urine Clarity Clear (Clear); Urine Color Colorless (Yellow); Urine Glucose NEGATIVE (Negative); Urine Mucus Slight /HPF (None Seen); Urine Protein NEGATIVE (Negative); Urine RBC None Seen /HPF (None Seen); Urine Urobilinogen Normal (Normal)
[2022-09-20 09:32] LABS: UR PROTEIN 23.9 mg/dL (<11.9); Urine Protein/Creatinine Ratio 0.48 ratio (<0.15)
--- NOTE | 2022-09-20 09:46 | RAD REPORT ---
EXAM DESCRIPTION: RADChest Pa And Lat (2 Views)09/20/2022 9:27 am CLINICAL HISTORY: CHF COMPARISON: Chest Single View dated 09/17/2022; Chest Single View dated 06/27/2022; Chest Pa And Lat ( 2 Views) dated 06/03/2022; Chest Single View dated 05/18/2022; Thorax Wo Con dated 09/17/2022 TECHNIQUE: Portable AP view of the chest. FINDINGS: Patchy right basal airspace opacity with layering effusion, may be slightly progressive co mpared to the 09/17/2022 radiograph. No pneumothorax or left-sided effusion. The cardiomediastinal c ontours are unremarkable. IMPRESSION: Progressive right basilar airspace opacity, may relate to worsening pneumonia.
[2022-09-20] MEDS: ATORVASTATIN 40 MG TAB PO SCH (20:45)
--- NOTE | 2022-09-20 22:26 | PN ---
Date of Progress Note: 09/20/2022 Subjective: The patient was seen this morning for followup. No new complaints or problems reported by him. Denies any shortness of breath at nighttime. No fever. No expectoration. Objective: Vital Signs: Reviewed. HEENT: Unremarkable. Lungs: Clear to auscultation except very minimal basal rales. Overall, much better than before. No t using any accessory muscles of respiration. Heart: Sounds normal. Abdomen: Soft. Bowel sounds normal. No guarding, rigidity, tenderness, or distention. Extremities: No leg edema. Laboratory Data: White count 6.3, hemoglobin 10.5, and platelets 204. Sodium 136, potassium 4.3, ch loride 108, bicarb 21, BUN 61, creatinine 2.49, and glucose 83. TSH 4.42. Chest x-ray from today sh ows increased bibasilar lung markings, worse compared to before. Impression: 1.Congestive heart failure, chronic, diastolic, with acute exacerbation. 2.Hypertension. 3.Acute kidney injury. 4.Chronic kidney disease. 5.Hyperlipidemia. 6.Anemia due to chronic kidney disease. Plan: We will go ahead and continue Lasix. This morning, I gave him 40 mg IV x1 dose and this eveni ng, we will give second dose. Clinically, the patient does not have any pneumonia and changes noted on the chest x-ray is likely due to congestive heart failure and not pneumonia. Symptomatically he i s feeling better and will continue to follow with blankbook forwarder. Renal ultrasound was unremarkable fr om yesterday. We will repeat blood work tomorrow morning and nurse was advised to wean off oxygen de pending on his oxygen saturation level. We will repeat blood work tomorrow morning and possible disc harge to go home in next 1 to 2 days. Renal function was improving slowly on a daily basis since admission. ENRIQUE/MODL Voice ID: [id number] Report ID: [id number]
--- NOTE | 2022-09-21 00:01 | PN ---
Date of Progress Note: 09/20/2022 Chief Complaint: Zdnzf-lt-lpaeilr kidney injury. Subjective: The patient has nonoliguric urine output. Renal ultrasound was done to rule out hydrone phrosis. There is no evidence of hydronephrosis. No focal masses. No perinephric fluid. Small per ipelvic right renal cyst measuring 1.1 cm. Right kidney 11.5 x 4.8 and left kidney is atrophic and m easures 7.2 x 3.7 x 3.3. Cortical thinning and increased echogenicity more progressive compared to t he previous exam. No hydronephrosis. No focal mass. No perinephric fluid. Incidentally noted smal l parapelvic right renal cyst. Impression And Plan: 1.The patient came to the hospital because of shortness of breath. He developed tmlqy-nb-mabwyxt ki dney injury related to cardiorenal syndrome. Renal function is improving. Continue Lasix and plan i s to adjust p.o. Lasix for maintenance. 2.Chronic kidney disease stage 3 and benign prostatic hypertrophy. The patient denies lower urinary tract symptoms. Denies urinary retention and monitor renal ultrasound as needed and bladder ultraso und as needed. Monitor for any evidence of urinary retention. EB/MODL Voice ID: [id number] Report ID: [id number]
[2022-09-21 06:05] LABS: Magnesium 2.3 mg/dL (1.6-2.4); Potassium 3.9 mEq/L (3.5-5.1)
[2022-09-21] MEDS ORDERED: FUROSEMIDE 40 MG/4 ML VIAL IV ONE (07:55)
[2022-09-21] MEDS: HEPARIN 5000 UNIT/ML 1 ML VIAL SQ SCH ×2 (08:35→20:33)
[2022-09-21] MEDS: NIFEDIPINE XL 30 MG TABLET PO SCH (08:35)
[2022-09-21] MEDS: HYDRALAZINE HCL 25 MG TABLET PO SCH ×2 (08:35→20:33)
[2022-09-21] MEDS: carvediloL 25 MG TAB PO SCH ×2 (08:36→20:32)
[2022-09-21] MEDS: cloNIDine HCL 0.1 MG TAB PO SCH ×2 (08:36→20:33)
[2022-09-21] MEDS: HOME MED 1 EA UNK (Fluticasone Propion/Salmeterol [Wixela 250-50 Inhub] Blst.W.Dev) IH SCH (08:36)
[2022-09-21] MEDS ORDERED: POTASSIUM CL SA 10 MEQ TAB PO ONE (09:00)
[2022-09-21] MEDS: FUROSEMIDE 40 MG TABLET PO SCH (10:56)
--- NOTE | 2022-09-21 12:38 | PN ---
Date of Progress Note: 09/21/2022 Subjective: The patient was admitted to the hospital with acute kidney injury secondary to cardiorenal syndrome. The patient was diuresed aggressively. The patient on room air. Physical Examination: Vital Signs: Blood pressure 165/97, pulse of 68, afebrile. Chest: Clear to auscultation. Heart: S1, S2. Regular. Abdomen: Soft, nontender. Extremity: No edema. Neurologic: Alert. No focality. Laboratory Data: Hemoglobin 10.5. Sodium 136, potassium 3.9, bicarb 23, BUN 67, creatinine 2.5 trending down, calcium 9.1, magnesium 2.3. TSH 4.4, PC ratio 0.4. Chest x-ray showing cardiomegaly with congestion, looked slightly better than before. Current Medications: The patient on include Tylenol, atorvastatin, carvedilol, clonidine 0.1 b.i.d., hydralazine, nifedipine. Assessment And Plan: 1. Acute kidney injury secondary to cardiorenal syndrome. I will switch the patient to p.o. Lasix to maintain the patient and we will monitor. 2. Chronic kidney disease normal-sized kidney with disproportion in the kidney size 11.5/7.2 with the presence of normal ejection fraction with diastolic dysfunction. Possibility of renal mass loss secondary to renal vascular disease, renal artery stenosis still valid. The patient will need workup including MRA later on after stabilizing the kidney function. 3. Hypertension. Continue to utilize blood pressure for ultrafiltration with Lasix to establish better volume control. 4. Questionable renal artery stenosis. The patient had low blood before, was negative. As I mentioned, the patient will need MRA as outpatient to rule out renal artery stenosis. 5. Anemia of chronic kidney disease, stable. No need for CK. Time spent examining the patient [id number], reviewing data, lab and radiology, placing order, discussing the case with the patient, discussing the case with the steam pressure chamber operator including hospitalist and nursing staff more than 35 minutes. YUDELKA Voice ID: [id number] Report ID: [id number]
[2022-09-21] MEDS: ATORVASTATIN 40 MG TAB PO SCH (20:32)
--- NOTE | 2022-09-21 21:38 | PN ---
Date of Progress Note: 09/21/2022 Subjective: Patient was seen this morning for followup. No new complaints or problems reported by hardik loera. Objective: General: Lying in bed, not in distress. Vital Signs: Reviewed. HEENT: Unremarkable. Lungs: Bilateral good equal air entry. Presence of some fine rales noted in lung bases with diminis hed air entry unchanged from yesterday. Heart: Sounds normal. Abdomen: Soft. Bowel sounds normal. No guarding, rigidity, tenderness, distention. Extremities: No leg edema. Laboratory Data: Sodium 136, potassium 3.9, chloride 106, bicarb 23, BUN 67, creatinine 2.56, glucos e 94. Magnesium 2.3. Impression: 1.Congestive heart failure, chronic, diastolic, with acute exacerbation. 2.Hypertension. 3.Acute kidney injury. 4.Hyperlipidemia. Plan: We will go ahead and continue current antihypertensive medication. We will give another dose of Lasix 40 mg IV this morning. Yesterday, patient got 2 doses of IV Lasix and he diuresed very well . We will repeat blood work and chest x-ray tomorrow morning. Depending on his condition, we will d ecide about possible discharge tomorrow. Yesterday, we were able to successfully wean off oxygen and he was maintaining adequate oxygenation o n room air. ENRIQUE/MODL Voice ID: [id number] Report ID: [id number]
[2022-09-22 06:29] LABS: Hematocrit 34.2 % (39.6-49.0); Lymphocytes % 29.3 % (15.3-44.8); MCV 76.7 fL (80-100); MPV 7.6 fL (7.6-11.3); RBC Red Blood Cell Count 4.46 M/uL (4.33-5.43)
[2022-09-22 06:48] LABS: Magnesium 2.2 mg/dL (1.6-2.4); Potassium 3.9 mEq/L (3.5-5.1)
--- NOTE | 2022-09-22 07:41 | RAD REPORT ---
EXAM DESCRIPTION: Killian Pa And Lat (2 Views)09/22/2022 7:29 am CLINICAL HISTORY: CHF COMPARISON: September 20, 2022 FINDINGS: Partial resolution in the bilateral lower lobe opacities. Small bilateral pleural effusions Upper lobes are clear. Heart is normal size. Aorta is tortuous IMPRESSION: Partial resolution the bibasilar lung opacities which may represent pneumonia or atelect asis
[2022-09-22] MEDS: NIFEDIPINE XL 30 MG TABLET PO SCH (08:16)
[2022-09-22] MEDS: HYDRALAZINE HCL 25 MG TABLET PO SCH (08:16)
[2022-09-22] MEDS: FUROSEMIDE 40 MG TABLET PO SCH (08:16)
[2022-09-22] MEDS: carvediloL 25 MG TAB PO SCH (08:17)
[2022-09-22] MEDS: cloNIDine HCL 0.1 MG TAB PO SCH (08:17)
[2022-09-22] MEDS: HOME MED 1 EA UNK (Fluticasone Propion/Salmeterol [Wixela 250-50 Inhub] Blst.W.Dev) IH SCH (08:18)
[2022-09-22] MEDS: HEPARIN 5000 UNIT/ML 1 ML VIAL SQ SCH (08:18)
[2022-09-22 08:34] VITALS: TEMP 970
[2022-09-22 08:58] VITALS: O2SAT 100
[2022-09-22] MEDS ORDERED: POTASSIUM CL SA 10 MEQ TAB PO ONE (09:00)
[2022-09-22 09:17] VITALS: BP 128/90
--- NOTE | 2022-09-23 00:26 | DS ---
Date of Discharge: 09/22/2022 Disposition: Discharged to go home. Physical Examination: HEENT: Unremarkable. Lungs: Clear to auscultation. No wheezing. No rales. Not in any respiratory distress. Heart: Sounds normal. Abdomen: Soft. Bowel sounds normal. No guarding, rigidity, tenderness, distention. Extremities: No leg edema. Laboratory Data: Upon admission, white count 8.9, hemoglobin 11.4, platelets 240. Today, white coun t 6.7, hemoglobin 11.3, platelets 245. Upon admission, chemistry shows sodium 135, potassium 4.4, ch loride 110, bicarb 20, BUN 46, creatinine 3.52, glucose 112. Liver function tests unremarkable. C-r eactive protein 22. ProBNP 8953. Last chemistry today sodium 136, potassium 3.9, chloride 104, bica rb 26, creatinine was 2.61. Last creatinine during this hospital admission was 2.49 . TSH was 4.42. Hospital Course: A 67-year-old male patient admitted to the hospital after he came into emergency ro om with complaints of shortness of breath and not feeling good. Please see dictated H and P for more information. The patient was evaluated in the ER and was admitted to the hospital with congestive h eart failure and acute kidney injury problem. After he was admitted to hospital, he was treated with IV Lasix. Nephrology consultation was requested from his freelance photographer and the patient's renal funct ion did improve to some extent as we monitored it closely. His shortness of breath problem improved. We monitored his electrolytes and renal function and a chest x-ray as well. Last chest x-ray done today shows improvement in his lung opacities. Clinically, does not have any signs or sym ptoms of pneumonia and he did not require an antibiotic during hospitalization. Today, he was discha rged to go home in improved condition with following discharge medications and instructions. Final Diagnoses: 1.Congestive heart failure, chronic, diastolic, with acute exacerbation. 2.Acute kidney injury. 3.Hypertension. 4.Hyperlipidemia. 5.Coronary atherosclerosis. 6.Chronic obstructive pulmonary disease. 7.Stroke. 8.Gastroesophageal reflux disease. 9.Benign prostatic hypertrophy. 10.Anemia due to chronic kidney disease. 11. , stage IIIB. Discharge Medications And Instructions: 1.Continue all prior home medications. 2.Follow up at my office next week on Monday. 3. a day. ENRIQUE/JIMMY Voice ID: [id number] Report ID: [id number]
== END 2022-09-22 09:53 | disposition home or self-care (01) | DRG 291 ==
LOC: ER 21:41 → ERHOLD 09-18 00:38 → 4TH 09-18 01:32
PROVIDERS: ADMIT Internal Medicine; ATTEND Internal Medicine
PROC: 5A09457 Assistance with Respiratory Ventilation, 24-96 Consecutive Hours, Continuous Positive Airway Pressure (ICD-10-PCS; principal; 2022-09-18)
DX: I13.0 Hypertensive heart and chronic kidney disease with heart failure and stage 1 through stage 4 chronic kidney disease, or unspecified chronic kidney disease (principal); I50.33 Acute on chronic diastolic (congestive) heart failure; N17.9 Acute kidney failure, unspecified; N18.32 Chronic kidney disease, stage 3b; D63.1 Anemia in chronic kidney disease; E78.5 Hyperlipidemia, unspecified; K21.9 Gastro-esophageal reflux disease without esophagitis; N40.0 Benign prostatic hyperplasia without lower urinary tract symptoms; I71.23 Aneurysm of the descending thoracic aorta, without rupture; J44.9 Chronic obstructive pulmonary disease, unspecified; I25.10 Atherosclerotic heart disease of native coronary artery without angina pectoris; F17.210 Nicotine dependence, cigarettes, uncomplicated; Z88.8 Allergy status to other drugs, medicaments and biological substances; Z79.02 Long term (current) use of antithrombotics/antiplatelets; Z86.73 Personal history of transient ischemic attack (TIA), and cerebral infarction without residual deficits; Z79.899 Other long term (current) drug therapy; Z28.310 Unvaccinated for COVID-19; Z91.119 Patient's noncompliance with dietary regimen due to unspecified reason; Z20.822 Contact with and (suspected) exposure to COVID-19
CPT/HCPCS: 36415; 71045; 71046; 71250; 76770; 80048; 80061; 80076; 81001; 82570; 83735; 83880; 84156; 84439; 84443; 84484; 85025; 86021; 86140; 87040; 87804; 87811; 93005; 93306; 94640; 94660; 94760; 99285; J0696; J1644; J1940; J2270; J2405; J7613